=== PATIENT | male | born 1950 | race Two or more races ===

== ENCOUNTER 2020-06-23 17:05 | Inpatient (IN) | payer MEDICARE, SELFPAY ==
[2020-06-23 17:05] VITALS: BP 120/88; PULSE 94; RESP 18; TEMP 37.3; O2SAT 99; BMI 29.7
--- NOTE | 2020-06-23 17:44 | CT_ITS ---
EXAMINATION : Head CT w/out contrast HISTORY : altered mental status COMPARISON : None. TECHNIQUE : Multiple contiguous axial images were obtained from the skull base to the vertex without intravenous contrast. A radiation dose optimization technique was used for this scan. FINDINGS : There is no evidence for acute intracranial hemorrhage, mass effect, or midline shift. There is no extra-axial fluid collection. There are periventricular white matter changes consistent with chronic microvascular ischemic disease. There is sulcal widening and ventricular enlargement consistent with cerebral atrophy. There is normal stauffer-white differentiation, without CT evidence of acute ischemia or infarct. The skull base and calvarium are unremarkable. The orbits are unremarkable. Mild mucosal thickening of several ethmoid air cells. The mastoid air cells are well-aerated. The soft tissues are unremarkable. CT/Brain/Head without Contrast IMPRESSION: No acute intracranial abnormality. Chronic involutional and ischemic changes of the brain. Ethmoid sinusitis. Electronically Signed: Lokesh Mcgarry MD at 18:58 EDT Tel , Service support ,
--- NOTE | 2020-06-23 17:44 | RAD_ITS ---
STUDY: X-RAY - LUMBAR SPINE REASON FOR EXAM: Male, 70 years old. pain TECHNIQUE: 3 view(s) of the lumbar spine were obtained. COMPARISON: None FINDINGS: There is straightening of the normal lumbar lordosis. There is no substantial scoliosis. There is a normal alignment of the vertebrae. Normal vertebral body height without fracture deformity. Generalized mild to moderate disc narrowing with extensive spondylitic endplate changes. There is no demonstrated fracture. The soft tissue structures are unremarkable. RAD/Lumbar Spine 2 or 3 Views IMPRESSION: Straightening of the lumbar spine with otherwise normal alignment. Negative for fracture, osteolytic or blastic bone lesion. Mild to moderate disc narrowing with extensive spondylitic endplate changes. Electronically Signed: Tari Webb MD at 19:35 EDT , Service support ,
--- NOTE | 2020-06-23 17:46 | EKG12_ITS ---
Test Reason : FALL Blood Pressure : / mmHG Vent. Rate : 090 BPM Atrial Rate : 090 BPM P-R Int : 140 ms QRS Dur : 094 ms QT Int : 406 ms P-R-T Axes : 061 064 057 degrees QTc Int : 496 ms Normal sinus rhythm Prolonged QT Abnormal ECG Confirmed by CINDY QUINN, KVNG ([id number]), associate editor LUCITA RAINEY ([id number]) on 06/28/2020 12:22:37 PM Referred By: ANGEL Confirmed By:KVNG WHITE MD
--- NOTE | 2020-06-23 17:49 | ED.VIS.FALL ---
HPI HPI - Fall History of Present Illness Chief Complaint: Fall Informant: patient and family Occured/Mechanism Occurred: Today Mechanism/Context: Yes other Fall from Height (ft): 2-3, out of bed Pain/Injury Location: Denies injury from fall Pain Location: back Quality of Pain: Aching Current Severity: Mild Maximum Severity: Severe Worsened by: Movement Narrative Narrative: Patient arrives by EMS after a fall, apparently out of bed. He was found on the floor next to his bed by his son who recently moved in to live with him, he usually lives in [place], because their mother last year of liver failure and alcohol problems, and they recently discovered that their father also is an alcoholic and since he retired has basically just been drinking and getting weak. Recently has been having neck and back problems with severe pains, limiting his ADLs. They have had visits to doctors for this, some blood work was recently obtained, he was told that there was a white blood count that was elevated. The son went to the store today and came back and found the patient on the floor and had apparently fallen. The patient is confused. The son helped to wean him off of alcohol this past week, he was confused afterwards but it seemed to be improving, he thought he had them through the withdrawal period, which he did with him at home. Then he went to [place] for the weekend and came back and saw that he had been drinking beer. He agrees he is confused now. His last drink then was either 3 or 4 days ago. The son confirms that in the past several he has had no alcoholic drink. He has not yet been to the hospital for evaluation for any of this until now after this fall. The patient states he does not think he injured himself, but his low back hurts when he moves only, which was the case before the fall. The son did not bring a medication list, but states that he has basically not been taking any of his medications for weeks or more. [facility] Medical History (Updated 06/23/20 @ 19:[address] Naldo Rodriguez MD) Alcoholism Hypertension Home Medications aspirin 81 mg PO DAILY@0800 01/13/14 [History Last Taken Unknown] amlodipine 10 mg PO DAILY #60 tablet 01/19/14 [Rx Last Taken Unknown] hydrochlorothiazide 12.5 mg PO DAILY 06/23/20 [History Last Taken Unknown] Allergy/AdvReac Type Severity Reaction Status Date / Time No Known Allergies Allergy Verified 06/23/20 17:17 Social History (Updated 06/23/20 @ 17:[address] Naldo Rodriguez MD) household members: children Smoking Status: Former smoker alcohol intake: current alcohol intake frequency: 3 or more drinks per day Alcohol type: beer substance use type: does not use ROS ROS ED Constitutional Constitutional ED: Reports malaise; Denies chills or fever(s) Eyes Eyes: Denies change in vision or diplopia ENT ENT ED: Denies rhinorrhea or sore throat Cardiovascular Cardiovascular: Denies chest pain or palpitations Respiratory/Chest Respiratory/Chest: Denies cough or dyspnea Gastrointestinal Gastrointestinal: Denies abdominal pain, diarrhea, melena, nausea or vomiting Genitourinary Genitourinary ED: Denies dysuria or hematuria Musculoskeletal Musculoskeletal: Reports back pain and neck pain; Denies myalgias Integumentary Denies abscess or rash Neurologic Neurologic: Reports as per HPI and confusion; Denies headache(s), paresthesias or weakness Psychiatric Psychiatric: Denies anxiety or suicidal thoughts EXAM Physical Exam Const Vital Signs: 06/23/20 17:05 06/23/20 17:33 06/23/20 20:01 Temperature 99.1 F Temperature Source Oral Pulse Rate 94 89 Respiratory Rate 18 13 Respiratory Effort Normal Non-Labored Respiratory Depth Normal Respiratory Pattern Normal Blood Pressure 120/88 H 118/76 Blood Pressure Mean 98 90 Pulse Ox 99 96 Oxygen Delivery Method Room Air Room Air Room Air Positive well nourished and well developed General Appearance ED: well developed and NAD HEENT Reports moist mucous membranes normocephalic and atraumatic Eyes PERRL and EOMs intact bilaterally Neck full ROM and supple Resp normal respiratory effort and clear to auscultation bilaterally Cardio regular rate, regular rhythm and no murmurs Rate: Negative for tachycardic GI non-tender and non-distended Auscultation: normoactive bowel sounds Palpation: soft Back/Spine no CVA tenderness General Back: tenderness and other FROM but with pain in lumbar spine. Tender only when in pain. No step-off or signs of trauma. Lumbar Spine / Lower Back: lumbar spinal tenderness Extremity normal to inspection, full ROM and normal capillary refill General Extremety ED: Negative for edema, pulses abnormal or tenderness General Extremity: Negative for edema or pulses abnormal Neuro CN's II-XII intact bilaterally and no sensory deficits noted Sensorium / Orientation: awake, alert, oriented to person and confused; Negative for oriented to place or oriented to time Motor Exam: strength 5/5 throughout Skin no rashes or lesions noted and no wounds MDM MDM MDM Narrative Medical decision making narrative: Patient indeed has a significant leukocytosis. This appears possibly related to urinary tract infection. Blood and urine cultures were sent, started on IV Rocephin. He could be confused due to delirium from infection and/or alcohol withdrawal. For this reason I discussed with hospitalist about ICU admission tonight, since his blood pressure and vital signs are normal and he is clinically and hemodynamically stable, he prefers to have him started in the PCU which I think is fine. He is given IV fluids, analgesics, prophylactic Zofran, antibiotics as above, potassium. Lab Data Attestation: I reviewed the patient's lab results. Labs: Laboratory Results - last 24 hr 06/23/20 06/23/20 06/23/20 18:00 18:00 18:00 WBC 18.8 H RBC 3.82 L Hgb 12.7 L Hct 37.3 L MCV 97.6 H MCH 33.2 H MCHC 34.0 RDW Std Deviation 48.0 H RDW Coeff of Lou 13.3 Plt Count 315 MPV 11.2 Immature Gran % (Auto) 1.200 H Neut % (Auto) 92.4 H Lymph % (Auto) 2.9 L [place] % (Auto) 3.3 Eos % (Auto) 0.0 Baso % (Auto) 0.2 Absolute Neuts (auto) 17.4 H Absolute Lymphs (auto) 0.55 L Nucleated RBC % 0 Differential Comment SCANNED PT 15.8 H INR 1.3 Sodium 131 L Potassium 2.8 L Chloride 94 L Carbon Dioxide 30.0 Anion Gap 7 BUN 21 H Creatinine 1.25 Estim Creat Clear Calc 63.02 Est GFR (MDRD) Af Amer 73 Est GFR (MDRD) Non-Af 61 BUN/Creatinine Ratio 16.8 Glucose 107 H Lactic Acid Calcium 8.5 Total Bilirubin 2.60 H AST 64 H ALT 32 Alkaline Phosphatase 99 Total Creatine Kinase Troponin I < 0.015 Total Protein 6.4 Albumin 2.3 L Globulin 4.1 Albumin/Globulin Ratio 0.6 L Urine Color Urine Clarity Urine pH Ur Specific [place] Urine Protein Urine Glucose (UA) Urine Ketones Urine Occult Blood Urine Nitrite Urine Bilirubin Urine Urobilinogen Ur Leukocyte Esterase Urine RBC Urine WBC Ur Squamous Epith Cells Urine Bacteria Urine Mucus Urine Opiates Screen Urine Methadone Screen Ur Barbiturates Screen Ur Phencyclidine Scrn Ur Amphetamines Screen U Methamphetamin-MDMA U Benzodiazepines Scrn Urine Cocaine Screen U Cannabinoids Screen Ur Drug Screen Comment Ethyl Alcohol 06/23/20 06/23/20 06/23/20 18:00 18:00 18:00 WBC RBC Hgb Hct MCV MCH MCHC RDW Std Deviation RDW Coeff of Lou Plt Count MPV Immature Gran % (Auto) Neut % (Auto) Lymph % (Auto) [place] % (Auto) Eos % (Auto) Baso % (Auto) Absolute Neuts (auto) Absolute Lymphs (auto) Nucleated RBC % Differential Comment PT INR Sodium Potassium Chloride Carbon Dioxide Anion Gap BUN Creatinine Estim Creat Clear Calc Est GFR (MDRD) Af Amer Est GFR (MDRD) Non-Af BUN/Creatinine Ratio Glucose Lactic Acid 1.5 Calcium Total Bilirubin AST ALT Alkaline Phosphatase Total Creatine Kinase 803 H Troponin I Total Protein Albumin Globulin Albumin/Globulin Ratio Urine Color Urine Clarity Urine pH Ur Specific [place] Urine Protein Urine Glucose (UA) Urine Ketones Urine Occult Blood Urine Nitrite Urine Bilirubin Urine Urobilinogen Ur Leukocyte Esterase Urine RBC Urine WBC Ur Squamous Epith Cells Urine Bacteria Urine Mucus Urine Opiates Screen Urine Methadone Screen Ur Barbiturates Screen Ur Phencyclidine Scrn Ur Amphetamines Screen U Methamphetamin-MDMA U Benzodiazepines Scrn Urine Cocaine Screen U Cannabinoids Screen Ur Drug Screen Comment Ethyl Alcohol < 3.0 06/23/20 06/23/20 19:10 19:10 WBC RBC Hgb Hct MCV MCH MCHC RDW Std Deviation RDW Coeff of Lou Plt Count MPV Immature Gran % (Auto) Neut % (Auto) Lymph % (Auto) [place] % (Auto) Eos % (Auto) Baso % (Auto) Absolute Neuts (auto) Absolute Lymphs (auto) Nucleated RBC % Differential Comment PT INR Sodium Potassium Chloride Carbon Dioxide Anion Gap BUN Creatinine Estim Creat Clear Calc Est GFR (MDRD) Af Amer Est GFR (MDRD) Non-Af BUN/Creatinine Ratio Glucose Lactic Acid Calcium Total Bilirubin AST ALT Alkaline Phosphatase Total Creatine Kinase Troponin I Total Protein Albumin Globulin Albumin/Globulin Ratio Urine Color Yellow Urine Clarity Cloudy Urine pH 6.0 Ur Specific [place] 1.020 Urine Protein 30 H Urine Glucose (UA) Normal Urine Ketones 5 H Urine Occult Blood 150 H Urine Nitrite Negative Urine Bilirubin 1 H Urine Urobilinogen 4 H Ur Leukocyte Esterase 500 H Urine RBC 0 SEEN Urine WBC 50-100 SEEN Ur Squamous Epith Cells 0-5 SEEN Urine Bacteria 2+ Urine Mucus 0 SEEN Urine Opiates Screen POSITIVE H Urine Methadone Screen NEGATIVE Ur Barbiturates Screen NEGATIVE Ur Phencyclidine Scrn NEGATIVE Ur Amphetamines Screen NEGATIVE U Methamphetamin-MDMA NEGATIVE U Benzodiazepines Scrn NEGATIVE Urine Cocaine Screen NEGATIVE U Cannabinoids Screen POSITIVE H Ur Drug Screen Comment Ethyl Alcohol Radiography Diagnostic Testing: Radiology Impression Brain CT 06/23/20 17:44 IMPRESSION: No acute intracranial abnormality. Chronic involutional and ischemic changes of the brain. Ethmoid sinusitis. Electronically Signed: Lokesh Mcgarry MD at 18:58 EDT Tel , Service support , Lumbar Spine X-Ray 06/23/20 17:44 IMPRESSION: Straightening of the lumbar spine with otherwise normal alignment. Negative for fracture, osteolytic or blastic bone lesion. Mild to moderate disc narrowing with extensive spondylitic endplate changes. Electronically Signed: Tari Webb MD at 19:35 EDT , Service support , Chest X-Ray 06/23/20 18:50 IMPRESSION: No acute cardiopulmonary findings or changes. Electronically Signed: Tari Webb MD at 19:32 EDT , Service support , Discharge Plan Dx/Rx/DC Orders Clinical Impression: Delirium due to multiple etiologies, Urinary tract infection, Alcohol withdrawal, Hypokalemia Disposition Disposition: Acute Care [facility]
[2020-06-23] MEDS: Ondansetron 4 MG/2 ML Vial IV (18:27)
[2020-06-23] MEDS: 0.9% Normal Saline 1,000 ML 150 ML IV (18:27)
[2020-06-23] MEDS: Morphine 2 MG/ML Syringe IV (18:29)
[2020-06-23 18:31] LABS: Absolute Lymphocyte Count 0.55 X10^3/uL (0.83-4.51); Absolute Neutrophil Count 17.4 X10^3/uL (2.0-7.7); Basophil# 0.03 X10^3/uL; Basophil% 0.2 % (0-1); Hematocrit 37.3 % (40-54); Hemoglobin 12.7 g/dL (13.0-16.5); Lymphocyte # 0.55 X10^3/ul (0.83-4.51); Lymphocyte % 2.9 % (19-41); Mean Corpuscular Hgb 33.2 pg (27.0-32.0); Mean Corpuscular Volume 97.6 fL (80-94); Mean Platelet Vol. 11.2 fl (6.2-12.0); Monocyte# 0.63 X10^3/uL; Monocyte% 3.3 % (0-10); NRBC Flagged by Analyzer 0 % (0-5); Neutrophil # 17.38 X10^3/uL (2.7-7.7); Neutrophil % 92.4 % (47-70); POSITIVE DIFFERENTIAL YES; Platelet Count 315 K/mm3 (150-450); RBC Distribution Width CV 13.3 % (11.6-14.6); Red Blood Count 3.82 M/mm3 (4.6-6.2); White Blood Count 18.8 K/mm3 (4.4-11.0)
[2020-06-23 18:33] LABS: Differential Indicated SCAN CRITERIA MET
[2020-06-23 18:36] LABS: International Normalized Ratio 1.3; Prothrombin Time (Protime)PT. 15.8 SECONDS (11.7-14.9)
[2020-06-23 18:42] LABS: CPK Total, Creatine Kinase 803 U/L (39-308)
[2020-06-23 18:44] LABS: Alcohol, Blood (Medical)-Serum < 3.0 mg/dL
--- NOTE | 2020-06-23 18:50 | RAD_ITS ---
STUDY: X-RAY CHEST REASON FOR EXAM: Male, 70 years old. weakness TECHNIQUE: 1 view COMPARISON: Prior chest radiograph of 01/17/2014 FINDINGS: The lungs are clear and expanded. There is no demonstrated pleural abnormality. Normal size heart. Normal mediastinum and patience. Normal visualized pulmonary arteries. There is atherosclerotic calcification of the aortic arch with tortuosity. There are diffuse degenerative changes of the visualized thoracic spine. There is degenerative osteoarthritis of the bilateral shoulders. There is no demonstrated abnormality of the visualized soft tissue structures of the upper abdomen. RAD/Chest 1 View (Portable) IMPRESSION: No acute cardiopulmonary findings or changes. Electronically Signed: Tari Webb MD at 19:32 EDT , Service support ,
[2020-06-23 18:51] LABS: ALB/GLOB Ratio 0.6 RATIO (0.9-2.4); AST(SGOT) 64 U/L (15-37); Alanine Aminotransfer ALT/SGPT 32 U/L (16-61); Albumin, Serum 2.3 g/dL (3.2-5.0); Alkaline Phosphatase 99 U/L (45-117); Anion Gap 7 (5-15); BUN 21 mg/dL (7-18); BUN/Creat Ratio 16.8 RATIO (10-20); Calcium,Total 8.5 mg/dL (8.5-10.1); Chloride 94 mmol/L (98-107); Creatinine, Serum 1.25 mg/dL (0.70-1.30); EST Glomerular Filtration Rate 61 mL/min (>60); Est Glom Filt Rate - Afr Amer 73 mL/min (>60); Estimated Creatinine Clearance 63.02 ml/min; Globulin 4.1 g/dL (2.2-4.2); Glucose 107 mg/dL (74-106); Potassium 2.8 mmol/L (3.5-5.1); Protein, Total 6.4 g/dL (6.4-8.2); Sodium Level 131 mmol/L (136-145)
[2020-06-23 18:52] LABS: Lactic Acid 1.5 mmol/L (0.4-1.9)
[2020-06-23 19:18] LABS: Mucous, Urine 0 SEEN /hpf (<or=2+); Red Blood Cells-Urine 0 SEEN /hpf (0-5)
[2020-06-23 19:19] LABS: Differential Comment SCANNED
[2020-06-23 19:25] LABS: Color, Urine Yellow (Yellow); Glucose, Dipstick Normal (Normal); Ketone-Dipstick 5 mg/dl (Negative); Leukocyte Esterase-Dipstick 500 /ul (Negative); Nitrite-Dipstick Negative (Negative); Occult Blood-Urine 150 /ul (Negative); Protein-Dipstick 30 mg/dl (Negative); Urine Bilirubin Dipstick 1 mg/dL (Negative); Urine Clarity Cloudy (Clear); Urine Urobilinogen 4 mg/dl (Normal)
[2020-06-23 19:33] LABS: Bacteria 2+ /hpf (None Seen); Squamous Epithelial Cells - UA 0-5 SEEN /hpf (0-5); White Blood Cells 50-100 SEEN /hpf (0-5)
[2020-06-23 19:47] LABS: Amphetamine Urine VISTA NEGATIVE (<1000 ng/mL); Barbiturate Urine VISTA NEGATIVE (< 200 ng/mL); Benzodiazepine Urine VISTA NEGATIVE (< 200 ng/mL); Cocaine Urine VISTA NEGATIVE (< 300 ng/mL); Ecstacy Urine VISTA NEGATIVE (< 500 ng/mL); Methadone Urine VISTA NEGATIVE (< 300 ng/mL); PCP Urine VISTA NEGATIVE (< 25 ng/mL); THC Urine VISTA POSITIVE (< 50 ng/mL); Vista UDS pH Range 5
[2020-06-23] MEDS: Ceftriaxone 1 GM/50 ML BAG IV (19:52)
[2020-06-23] MEDS: Potassium Chloride 10mEq/100mL 10 MEQ/100 ML IV.SOLN. 100 MEQ IV BOLUS ×2 (19:57→23:14)
[2020-06-23 20:01] VITALS: BP 118/76; PULSE 89; RESP 13; O2SAT 96
--- NOTE | 2020-06-23 21:35 | PCM.HP.STD ---
Documented by User: CHELSI Forrest 06/23/20 21:52 HPI - General General Date of Admission: 06/23/20 HPI Narrative OLLIE MEIER, is a 70 M who presents today with altered mental status and fall. Patient son reports that patient has been a heavy drinker & has been trying to help him withdrawal from alcohol but son was recently gone for the weekend at which time his father started drinking again. Patient son reports last drink was 3 to 4 days ago. Patient son reports that he has been confused for the past 3 to 4 days and he attributed this to alcohol withdrawal but states that today patient was worse instead of better and he was concerned that something else was wrong. Upon evaluation in ER patient was found to have a significant urinary tract infection with an elevated white blood cell count of 18.8. Imaging completed in ER was negative for acute findings. [facility] Medical History (Updated 06/23/20 @ 22:[address] oGpi Vieira MD) Alcoholism ARF (acute respiratory failure) Hypertension Stridor Home Medications aspirin 81 mg PO DAILY@0800 01/13/14 [History Last Taken Unknown] amlodipine 10 mg PO DAILY #60 tablet 01/19/14 [Rx Last Taken Unknown] hydrochlorothiazide 12.5 mg PO DAILY 06/23/20 [History Last Taken Unknown] Allergy/AdvReac Type Severity Reaction Status Date / Time No Known Allergies Allergy Verified 06/23/20 17:17 Social History household members: children Smoking Status: Former smoker alcohol intake: current alcohol intake frequency: 3 or more drinks per day Alcohol type: beer substance use type: does not use ROS Review of Systems ROS Unobtainable: due to mental status Vital Signs Vital Signs Vital Signs: 06/23/20 17:05 06/23/20 17:33 06/23/20 20:01 Temperature 99.1 F Temperature Source Oral Pulse Rate 94 89 Respiratory Rate 18 13 Respiratory Effort Normal Non-Labored Respiratory Depth Normal Respiratory Pattern Normal Blood Pressure 120/88 H 118/76 Blood Pressure Mean 98 90 Pulse Ox 99 96 Oxygen Delivery Method Room Air Room Air Room Air Physical Exam Const Orientation / Consciousness: confused and lethargic Exam Limitations: altered mental status HEENT normocephalic and head/scalp atraumatic Neck supple and no JVD General: trachea midline Lymph Lymphatic: no lymphadenopathy noted Resp normal respiratory effort, normal air movement and clear to auscultation bilaterally Cardio regular rate, regular rhythm, S1 normal heart sound and S2 normal heart sound GI normal to inspection, nondistended, normoactive bowel sounds, soft to palpation and non-tender Extremity normal capillary refill and no clubbing, cyanosis or edema General Extremity: no tenderness to palpation of joints or extremities Skin General Skin Exam: no breakdown and turgor normal Lesions: no lesions Rashes: no rashes Neuro CN's II-XII intact bilaterally Psych cooperative Lab / Micro Data Result Diagrams: 06/23/20 18:00 06/23/20 18:00 Labs: Laboratory Results - last 24 hr 06/23/20 06/23/20 06/23/20 18:00 18:00 18:00 WBC 18.8 H RBC 3.82 L Hgb 12.7 L Hct 37.3 L MCV 97.6 H MCH 33.2 H MCHC 34.0 RDW Std Deviation 48.0 H RDW Coeff of Lou 13.3 Plt Count 315 MPV 11.2 Immature Gran % (Auto) 1.200 H Neut % (Auto) 92.4 H Lymph % (Auto) 2.9 L [place] % (Auto) 3.3 Eos % (Auto) 0.0 Baso % (Auto) 0.2 Absolute Neuts (auto) 17.4 H Absolute Lymphs (auto) 0.55 L Nucleated RBC % 0 Differential Comment SCANNED PT 15.8 H INR 1.3 Sodium 131 L Potassium 2.8 L Chloride 94 L Carbon Dioxide 30.0 Anion Gap 7 BUN 21 H Creatinine 1.25 Estim Creat Clear Calc 63.02 Est GFR (MDRD) Af Amer 73 Est GFR (MDRD) Non-Af 61 BUN/Creatinine Ratio 16.8 Glucose 107 H Lactic Acid Calcium 8.5 Total Bilirubin 2.60 H AST 64 H ALT 32 Alkaline Phosphatase 99 Total Creatine Kinase Troponin I < 0.015 Total Protein 6.4 Albumin 2.3 L Globulin 4.1 Albumin/Globulin Ratio 0.6 L Urine Color Urine Clarity Urine pH Ur Specific [place] Urine Protein Urine Glucose (UA) Urine Ketones Urine Occult Blood Urine Nitrite Urine Bilirubin Urine Urobilinogen Ur Leukocyte Esterase Urine RBC Urine WBC Ur Squamous Epith Cells Urine Bacteria Urine Mucus Urine Opiates Screen Urine Methadone Screen Ur Barbiturates Screen Ur Phencyclidine Scrn Ur Amphetamines Screen U Methamphetamin-MDMA U Benzodiazepines Scrn Urine Cocaine Screen U Cannabinoids Screen Ur Drug Screen Comment Ethyl Alcohol 06/23/20 06/23/20 06/23/20 18:00 18:00 18:00 WBC RBC Hgb Hct MCV MCH MCHC RDW Std Deviation RDW Coeff of Lou Plt Count MPV Immature Gran % (Auto) Neut % (Auto) Lymph % (Auto) [place] % (Auto) Eos % (Auto) Baso % (Auto) Absolute Neuts (auto) Absolute Lymphs (auto) Nucleated RBC % Differential Comment PT INR Sodium Potassium Chloride Carbon Dioxide Anion Gap BUN Creatinine Estim Creat Clear Calc Est GFR (MDRD) Af Amer Est GFR (MDRD) Non-Af BUN/Creatinine Ratio Glucose Lactic Acid 1.5 Calcium Total Bilirubin AST ALT Alkaline Phosphatase Total Creatine Kinase 803 H Troponin I Total Protein Albumin Globulin Albumin/Globulin Ratio Urine Color Urine Clarity Urine pH Ur Specific [place] Urine Protein Urine Glucose (UA) Urine Ketones Urine Occult Blood Urine Nitrite Urine Bilirubin Urine Urobilinogen Ur Leukocyte Esterase Urine RBC Urine WBC Ur Squamous Epith Cells Urine Bacteria Urine Mucus Urine Opiates Screen Urine Methadone Screen Ur Barbiturates Screen Ur Phencyclidine Scrn Ur Amphetamines Screen U Methamphetamin-MDMA U Benzodiazepines Scrn Urine Cocaine Screen U Cannabinoids Screen Ur Drug Screen Comment Ethyl Alcohol < 3.0 06/23/20 06/23/20 19:10 19:10 WBC RBC Hgb Hct MCV MCH MCHC RDW Std Deviation RDW Coeff of Lou Plt Count MPV Immature Gran % (Auto) Neut % (Auto) Lymph % (Auto) [place] % (Auto) Eos % (Auto) Baso % (Auto) Absolute Neuts (auto) Absolute Lymphs (auto) Nucleated RBC % Differential Comment PT INR Sodium Potassium Chloride Carbon Dioxide Anion Gap BUN Creatinine Estim Creat Clear Calc Est GFR (MDRD) Af Amer Est GFR (MDRD) Non-Af BUN/Creatinine Ratio Glucose Lactic Acid Calcium Total Bilirubin AST ALT Alkaline Phosphatase Total Creatine Kinase Troponin I Total Protein Albumin Globulin Albumin/Globulin Ratio Urine Color Yellow Urine Clarity Cloudy Urine pH 6.0 Ur Specific [place] 1.020 Urine Protein 30 H Urine Glucose (UA) Normal Urine Ketones 5 H Urine Occult Blood 150 H Urine Nitrite Negative Urine Bilirubin 1 H Urine Urobilinogen 4 H Ur Leukocyte Esterase 500 H Urine RBC 0 SEEN Urine WBC 50-100 SEEN Ur Squamous Epith Cells 0-5 SEEN Urine Bacteria 2+ Urine Mucus 0 SEEN Urine Opiates Screen POSITIVE H Urine Methadone Screen NEGATIVE Ur Barbiturates Screen NEGATIVE Ur Phencyclidine Scrn NEGATIVE Ur Amphetamines Screen NEGATIVE U Methamphetamin-MDMA NEGATIVE U Benzodiazepines Scrn NEGATIVE Urine Cocaine Screen NEGATIVE U Cannabinoids Screen POSITIVE H Ur Drug Screen Comment Ethyl Alcohol Radiology Impression Brain CT 06/23/20 17:44 IMPRESSION: No acute intracranial abnormality. Chronic involutional and ischemic changes of the brain. Ethmoid sinusitis. Electronically Signed: Lokesh Mcgarry MD at 18:58 EDT Tel , Service support , Lumbar Spine X-Ray 06/23/20 17:44 IMPRESSION: Straightening of the lumbar spine with otherwise normal alignment. Negative for fracture, osteolytic or blastic bone lesion. Mild to moderate disc narrowing with extensive spondylitic endplate changes. Electronically Signed: Tari Webb MD at 19:35 EDT , Service support , Chest X-Ray 06/23/20 18:50 IMPRESSION: No acute cardiopulmonary findings or changes. Electronically Signed: Tari Webb MD at 19:32 EDT , Service support , Assessment & Plan Assessment/Plan (1) Urinary tract infection: QUALIFIERS: Hematuria presence: with hematuria Urinary tract infection type: site unspecified Qualified Code(s): N39.0 - Urinary tract infection, site not specified; R31.9 - Hematuria, unspecified (2) Alcohol withdrawal: QUALIFIERS: Complication of substance-induced condition: with delirium Qualified Code(s): F10.231 - Alcohol dependence with withdrawal delirium (3) Delirium due to multiple etiologies: (4) Hypokalemia: (5) Anxiety: (6) Hypertension: QUALIFIERS: Hypertension type: essential hypertension Qualified Code(s): I10 - Essential (primary) hypertension PLAN: 1. Urinary tract infection -Patient received Rocephin in ER, Levaquin ordered every 24 hours -Normal saline with 20 mEq of KCl at 100ml/hr -Urine culture pending -CBC daily to trend white blood cell count -Vitals per protocol, currently stable -Strict I and O 2. Alcohol withdrawal -CIWA protocol ordered with [facility] first 24-hour meds -Folic acid and thiamine ordered -Case management consult ordered for assistance with substance abuse 3. Delirium due to multiple etiologies -Unsure whether altered mental status is from UTI or alcohol withdrawal, will treat for both 4. Hypokalemia -Normal saline with 20 M EQ of KCl at 100 mill per hour -Potassium chloride IV replacement ordered, 40 mEq -Stat magnesium level ordered -CMP ordered for a.m. to trend potassium -Continuous cardiac monitoring 5. Anxiety -Lorazepam ordered as needed as part of CIWA protocol 6. Hypertension -Son unclear of cardiac medications patient is supposed to be taking will clarify with pharmacy in a.m. DVT prophylaxis-Lovenox subcu This patient was seen by CHELSI Forrest under the supervision of Dr. Vieira.[] Documented by User: Dr. Gopi Vieira MD 06/23/20 22:05 HPI - General General Date of Admission: 06/23/20 [facility] Medical History (Updated 06/23/20 @ 22:[address] Gopi Vieira MD) Alcoholism ARF (acute respiratory failure) Hypertension Stridor Home Medications aspirin 81 mg PO DAILY@0800 01/13/14 [History Last Taken Unknown] amlodipine 10 mg PO DAILY #60 tablet 01/19/14 [Rx Last Taken Unknown] hydrochlorothiazide 12.5 mg PO DAILY 06/23/20 [History Last Taken Unknown] Allergy/AdvReac Type Severity Reaction Status Date / Time No Known Allergies Allergy Verified 06/23/20 17:17 Social History household members: children Smoking Status: Former smoker alcohol intake: current alcohol intake frequency: 3 or more drinks per day Alcohol type: beer substance use type: does not use Lab / Micro Data Result Diagrams: 06/23/20 18:00 06/23/20 18:00 Assessment & Plan Assessment/Plan (1) Urinary tract infection: QUALIFIERS: Hematuria presence: with hematuria Urinary tract infection type: site unspecified Qualified Code(s): N39.0 - Urinary tract infection, site not specified; R31.9 - Hematuria, unspecified (2) Alcohol withdrawal: QUALIFIERS: Complication of substance-induced condition: with delirium Qualified Code(s): F10.231 - Alcohol dependence with withdrawal delirium (3) Delirium due to multiple etiologies: (4) Hypokalemia: (5) Hypertension: QUALIFIERS: Hypertension type: essential hypertension Qualified Code(s): I10 - Essential (primary) hypertension (6) Encephalopathy: Addendum Addendum: Patient was seen and examined. I agree with assessment and plan by Aurea Serna, [employer]YOR OPERATOR-C nurse practitioner and with the following modification. Patient was found on the floor by son who has returned from [place] to help patient quit alcohol withdrawal since patient's mother also from alcoholism. Patient was found on the floor. Reportedly in some absence patient resume drinking. Patient complains of neck pain and lower back pain. Imaging at the emergency department was unremarkable. Alert and confused Nontraumatic; normocephalic Lung clear to auscultate Heart sounds S1-S2. No murmur, gallop or rubs. Abdomen bowel sounds present soft, nontender nondistended Extremity without edema cyanosis or clubbing. Acute infectious and metabolic encephalopathy. Secondary to alcoholism. Put on CIWA protocol with high dose of thiamine and other adjusted medication. Given ceftriaxone at emergency department. We will continue patient on ceftriaxone. Rhabdomyolysis Patient with elevated CPK. IV hydration ordered. Trend CPK. Hypertension Stable. Trend blood pressures. Multi Select Codes Visit Charges Visit Charges: 91472 Init Hosp L3
[2020-06-23 21:44] VITALS: BP 136/74; PULSE 78; RESP 16; TEMP 36.6; O2SAT 96
[2020-06-23 21:51] LABS: Magnesium 1.6 mg/dL (1.6-2.6)
[2020-06-23 22:22] VITALS: BMI 27.6
[2020-06-23 22:25] VITALS: O2SAT 94
--- NOTE | 2020-06-23 22:32 | NURSING ---
Addendum entered by Haylie Pierre 06/23/20 23:54: Pt's son Saul stated pt's previous medications were all prescribed by Dr. Jose Pickett. Original Note: Pt's son Saul called for update and requesting record of patients medications. Saul stated that pt has not seen MD for greater than one year and has not been taking his medications. Med rec completed to reflect that pt not taking any home medications at this time.
[2020-06-23 22:34] VITALS: BP 138/87; PULSE 95; RESP 20; TEMP 37; O2SAT 95
[2020-06-23 23:06] VITALS: PULSE 96
[2020-06-24] VITALS (12 sets, daily range): BP systolic 104–145; BP diastolic 62–100; PULSE 76–98; RESP 14–18; TEMP 36.1–39.4; O2SAT 94–97
[2020-06-24] MEDS: Potassium Chloride 10mEq/100mL 10 MEQ/100 ML IV.SOLN. 100 MEQ IV BOLUS ×3 (00:20→02:25)
[2020-06-24] MEDS: Acetaminophen 325 MG Tablet 650 MG PO ×2 (02:50→17:50)
[2020-06-24 07:12] LABS: Absolute Lymphocyte Count 0.67 X10^3/uL (0.83-4.51); Absolute Neutrophil Count 15.9 X10^3/uL (2.0-7.7); Basophil# 0.03 X10^3/uL; Basophil% 0.2 % (0-1); Eosinophil# 0.01 X10^3/uL; Eosinophils% 0.1 % (0-5); Hematocrit 36.4 % (40-54); Hemoglobin 12.6 g/dL (13.0-16.5); Lymphocyte # 0.67 X10^3/ul (0.83-4.51); Lymphocyte % 3.8 % (19-41); Mean Corp Hgb Conc 34.6 g/dL (32-36); Mean Corpuscular Hgb 33.2 pg (27.0-32.0); Monocyte# 0.58 X10^3/uL; Monocyte% 3.3 % (0-10); NRBC Flagged by Analyzer 0 % (0-5); Neutrophil # 15.89 X10^3/uL (2.7-7.7); Neutrophil % 90.9 % (47-70); Platelet Count 278 K/mm3 (150-450); RBC Distribution Width CV 13.5 % (11.6-14.6); RBC Distribution Width SD 48.1 fl (35.1-43.9); Red Blood Count 3.79 M/mm3 (4.6-6.2); White Blood Count 17.5 K/mm3 (4.4-11.0)
[2020-06-24 07:49] LABS: ALB/GLOB Ratio 0.6 RATIO (0.9-2.4); AST(SGOT) 61 U/L (15-37); Alanine Aminotransfer ALT/SGPT 33 U/L (16-61); Albumin, Serum 2.2 g/dL (3.2-5.0); Alkaline Phosphatase 94 U/L (45-117); Anion Gap 15 (5-15); BUN 21 mg/dL (7-18); BUN/Creat Ratio 22.1 RATIO (10-20); Calcium,Total 8.2 mg/dL (8.5-10.1); Chloride 98 mmol/L (98-107); Creatinine, Serum 0.95 mg/dL (0.70-1.30); EST Glomerular Filtration Rate 83 mL/min (>60); Est Glom Filt Rate - Afr Amer 100 mL/min (>60); Estimated Creatinine Clearance 82.92 ml/min; Glucose 88 mg/dL (74-106); Potassium 3.1 mmol/L (3.5-5.1); Protein, Total 6.2 g/dL (6.4-8.2); Sodium Level 133 mmol/L (136-145)
[2020-06-24] MEDS: Lidocaine 5% Patch 1 PATCH TOPICAL (10:13)
[2020-06-24] MEDS: Folic Acid 1 MG Tablet PO ×2 (10:14→17:43)
[2020-06-24] MEDS: Enoxaparin 40 MG/0.4 ML Syringe SC (10:14)
[2020-06-24] MEDS: Ceftriaxone 1 GM/50 ML BAG IV (10:18)
[2020-06-24] MEDS: Potassium Chloride Oral Tablet 20 MEQ 40 MEQ PO (10:18)
--- NOTE | 2020-06-24 11:00 | CASEMGMT ---
ORTEGA ACHARYA Assessment: Face to Face with pt for initial transition planning/care coordination assessment. RN PATRIZIA introduced self and role at [facility], pt voices understanding and consents to assessment. Pt is A/O x4 and answers all questions appropriately at this time. Pt sitting up in bed in no distress, but slow to answer questions. Care providers, pharmacy, and demographics verified/updated. Admitting Dx: UTI, ETOH w/d PCP: [facility] Specialists: Pt denies having any specialists Preferred [facility]acy: [facility] Insurance: [facility] Prescription Benefit: yes LW/HPOA: Pt denies having a LW/DPOA. LNOK: Saul Lucas, son Living Arrangements: Pt lives with son in a single story house with 2 steps to enter. Pt denies concerns at home. Transportation: Pt states he drives self and denies concerns with transportation. DME/HHC/SNF: Pt has a cane, walker, shower seat and grab bars in the bathroom. Pt denies previous HHC and SNF stays. Pt states no concerns with going home at time of dc. Pt states no further concerns/needs. CM to follow therapy. Advised pt to ask CM if any further question/concerns/needs arise, voices understanding. Pt Goal: Home Plan: Home with son support, follow therapy.
--- NOTE | 2020-06-24 11:23 | CASEMGMT ---
SW spoke with pt. No Advance care documents on file at [facility]. Pt states he believes his son Saul Lucas is HCPOA but pt has not completed a living will. Pt painful at this time and not able to discuss advance care planning further. ASIF Fernandez
--- NOTE | 2020-06-24 11:30 | CASEMGMT ---
Social Work Referral received for alcohol use. SW met with pt in room and introduced self and role of SW. Pt states he lives at home with his son Saul. Pt does state he has 5-6 drinks daily, some beer some liquor. Pt states he stopped drinking about three weeks ago but has not used a program to assist him with cessation. SW provided resources for pt and pt is agreeable to meet with [facility] to discuss alcohol cessation. Pt is painful and requesting readjusting in bed. Pain limiting pt ability to talk with SW at this time. Pt agreeable to referral to [facility]. Nursing notified of pt discomfort. VM left with Latanya Treatment Navigator at [facility]. ASIF Fernandez
--- NOTE | 2020-06-24 15:12 | PN.HOSP_ITS ---
Documented by User: Hannah Bronson DIRECTOR STRATEGY, DIRECTOR STRATEGY-C 06/24/20 15:28 Subjective Subjective: Patient seen and examined. Remains confused, intermittently drowsy. Denies withdrawal symptoms. Spoke extensively with patient's son who is worried patient will continue to drink when he returns home. Objective Data Objective Data Vital Signs: Vital Signs Temp Pulse Resp BP Pulse Ox 98.4 F 95 16 114/78 96 06/24/20 13:21 06/24/20 13:21 06/24/20 13:21 06/24/20 13:21 06/24/20 13:21 Oxygen Flow Rate (L/min) 2 Oxygen Delivery Method Room Air Weight: 215 lb 6.266 oz Body Mass Index (BMI) 27.6 Intake & Output: Intake and Output for Last 24 Hours 06/22/20 06/23/20 06/24/20 23:59 23:59 23:59 Intake Total 921.17 / 921.17 742 / 742 Balance 921.17 / 921.17 742 / 742 Lab / Micro Data Result Diagrams: 06/24/20 05:40 06/24/20 05:40 Labs: Laboratory Results - last 24 hr 06/23/20 06/23/20 06/23/20 18:00 18:00 18:00 WBC 18.8 H RBC 3.82 L Hgb 12.7 L Hct 37.3 L MCV 97.6 H MCH 33.2 H MCHC 34.0 RDW Std Deviation 48.0 H RDW Coeff of Lou 13.3 Plt Count 315 MPV 11.2 Immature Gran % (Auto) 1.200 H Neut % (Auto) 92.4 H Lymph % (Auto) 2.[address] [place] % (Auto) 3.3 Eos % (Auto) 0.0 Baso % (Auto) 0.2 Absolute Neuts (auto) 17.4 H Absolute Lymphs (auto) 0.55 L Nucleated RBC % 0 Differential Comment SCANNED PT 15.8 H INR 1.3 Sodium 131 L Potassium 2.8 L Chloride 94 L Carbon Dioxide 30.0 Anion Gap 7 BUN 21 H Creatinine 1.25 Estim Creat Clear Calc 63.02 Est GFR (MDRD) Af Amer 73 Est GFR (MDRD) Non-Af 61 BUN/Creatinine Ratio 16.8 Glucose 107 H Lactic Acid Calcium 8.5 Magnesium Total Bilirubin 2.60 H AST 64 H ALT 32 Alkaline Phosphatase 99 Total Creatine Kinase Troponin I < 0.015 Total Protein 6.4 Albumin 2.3 L Globulin 4.1 Albumin/Globulin Ratio 0.6 L Urine Color Urine Clarity Urine pH Ur Specific [place] Urine Protein Urine Glucose (UA) Urine Ketones Urine Occult Blood Urine Nitrite Urine Bilirubin Urine Urobilinogen Ur Leukocyte Esterase Urine RBC Urine WBC Ur Squamous Epith Cells Urine Bacteria Urine Mucus Urine Opiates Screen Urine Methadone Screen Ur Barbiturates Screen Ur Phencyclidine Scrn Ur Amphetamines Screen U Methamphetamin-MDMA U Benzodiazepines Scrn Urine Cocaine Screen U Cannabinoids Screen Ur Drug Screen Comment Ethyl Alcohol 06/23/20 06/23/20 06/23/20 18:00 18:00 18:00 WBC RBC Hgb Hct MCV MCH MCHC RDW Std Deviation RDW Coeff of Lou Plt Count MPV Immature Gran % (Auto) Neut % (Auto) Lymph % (Auto) [place] % (Auto) Eos % (Auto) Baso % (Auto) Absolute Neuts (auto) Absolute Lymphs (auto) Nucleated RBC % Differential Comment PT INR Sodium Potassium Chloride Carbon Dioxide Anion Gap BUN Creatinine Estim Creat Clear Calc Est GFR (MDRD) Af Amer Est GFR (MDRD) Non-Af BUN/Creatinine Ratio Glucose Lactic Acid 1.5 Calcium Magnesium Total Bilirubin AST ALT Alkaline Phosphatase Total Creatine Kinase 803 H Troponin I Total Protein Albumin Globulin Albumin/Globulin Ratio Urine Color Urine Clarity Urine pH Ur Specific [place] Urine Protein Urine Glucose (UA) Urine Ketones Urine Occult Blood Urine Nitrite Urine Bilirubin Urine Urobilinogen Ur Leukocyte Esterase Urine RBC Urine WBC Ur Squamous Epith Cells Urine Bacteria Urine Mucus Urine Opiates Screen Urine Methadone Screen Ur Barbiturates Screen Ur Phencyclidine Scrn Ur Amphetamines Screen U Methamphetamin-MDMA U Benzodiazepines Scrn Urine Cocaine Screen U Cannabinoids Screen Ur Drug Screen Comment Ethyl Alcohol < 3.0 06/23/20 06/23/20 06/23/20 18:00 19:10 19:10 WBC RBC Hgb Hct MCV MCH MCHC RDW Std Deviation RDW Coeff of Lou Plt Count MPV Immature Gran % (Auto) Neut % (Auto) Lymph % (Auto) [place] % (Auto) Eos % (Auto) Baso % (Auto) Absolute Neuts (auto) Absolute Lymphs (auto) Nucleated RBC % Differential Comment PT INR Sodium Potassium Chloride Carbon Dioxide Anion Gap BUN Creatinine Estim Creat Clear Calc Est GFR (MDRD) Af Amer Est GFR (MDRD) Non-Af BUN/Creatinine Ratio Glucose Lactic Acid Calcium Magnesium 1.6 Total Bilirubin AST ALT Alkaline Phosphatase Total Creatine Kinase Troponin I Total Protein Albumin Globulin Albumin/Globulin Ratio Urine Color Yellow Urine Clarity Cloudy Urine pH 6.0 Ur Specific [place] 1.020 Urine Protein 30 H Urine Glucose (UA) Normal Urine Ketones 5 H Urine Occult Blood 150 H Urine Nitrite Negative Urine Bilirubin 1 H Urine Urobilinogen 4 H Ur Leukocyte Esterase 500 H Urine RBC 0 SEEN Urine WBC 50-100 SEEN Ur Squamous Epith Cells 0-5 SEEN Urine Bacteria 2+ Urine Mucus 0 SEEN Urine Opiates Screen POSITIVE H Urine Methadone Screen NEGATIVE Ur Barbiturates Screen NEGATIVE Ur Phencyclidine Scrn NEGATIVE Ur Amphetamines Screen NEGATIVE U Methamphetamin-MDMA NEGATIVE U Benzodiazepines Scrn NEGATIVE Urine Cocaine Screen NEGATIVE U Cannabinoids Screen POSITIVE H Ur Drug Screen Comment Ethyl Alcohol 06/23/20 06/24/20 06/24/20 23:55 03:08 05:40 WBC 17.5 H RBC 3.79 L Hgb 12.6 L Hct 36.4 L MCV 96.0 H MCH 33.2 H MCHC 34.6 RDW Std Deviation 48.1 H RDW Coeff of Lou 13.5 Plt Count 278 MPV 12.0 Immature Gran % (Auto) 1.700 H Neut % (Auto) 90.9 H Lymph % (Auto) 3.[address] [place] % (Auto) 3.3 Eos % (Auto) 0.1 Baso % (Auto) 0.2 Absolute Neuts (auto) 15.9 H Absolute Lymphs (auto) 0.67 L Nucleated RBC % 0 Differential Comment PT INR Sodium Potassium Chloride Carbon Dioxide Anion Gap BUN Creatinine Estim Creat Clear Calc Est GFR (MDRD) Af Amer Est GFR (MDRD) Non-Af BUN/Creatinine Ratio Glucose Lactic Acid Calcium Magnesium Total Bilirubin AST ALT Alkaline Phosphatase Total Creatine Kinase Troponin I < 0.015 < 0.015 Total Protein Albumin Globulin Albumin/Globulin Ratio Urine Color Urine Clarity Urine pH Ur Specific [place] Urine Protein Urine Glucose (UA) Urine Ketones Urine Occult Blood Urine Nitrite Urine Bilirubin Urine Urobilinogen Ur Leukocyte Esterase Urine RBC Urine WBC Ur Squamous Epith Cells Urine Bacteria Urine Mucus Urine Opiates Screen Urine Methadone Screen Ur Barbiturates Screen Ur Phencyclidine Scrn Ur Amphetamines Screen U Methamphetamin-MDMA U Benzodiazepines Scrn Urine Cocaine Screen U Cannabinoids Screen Ur Drug Screen Comment Ethyl Alcohol 06/24/20 05:40 WBC RBC Hgb Hct MCV MCH MCHC RDW Std Deviation RDW Coeff of Lou Plt Count MPV Immature Gran % (Auto) Neut % (Auto) Lymph % (Auto) [place] % (Auto) Eos % (Auto) Baso % (Auto) Absolute Neuts (auto) Absolute Lymphs (auto) Nucleated RBC % Differential Comment PT INR Sodium 133 L Potassium 3.1 L Chloride 98 Carbon Dioxide 20.0 L Anion Gap 15 BUN 21 H Creatinine 0.95 Estim Creat Clear Calc 82.92 Est GFR (MDRD) Af Amer 100 Est GFR (MDRD) Non-Af 83 BUN/Creatinine Ratio 22.1 H Glucose 88 Lactic Acid Calcium 8.2 L Magnesium Total Bilirubin 2.20 H AST 61 H ALT 33 Alkaline Phosphatase 94 Total Creatine Kinase Troponin I < 0.015 Total Protein 6.2 L Albumin 2.2 L Globulin 4.0 Albumin/Globulin Ratio 0.6 L Urine Color Urine Clarity Urine pH Ur Specific [place] Urine Protein Urine Glucose (UA) Urine Ketones Urine Occult Blood Urine Nitrite Urine Bilirubin Urine Urobilinogen Ur Leukocyte Esterase Urine RBC Urine WBC Ur Squamous Epith Cells Urine Bacteria Urine Mucus Urine Opiates Screen Urine Methadone Screen Ur Barbiturates Screen Ur Phencyclidine Scrn Ur Amphetamines Screen U Methamphetamin-MDMA U Benzodiazepines Scrn Urine Cocaine Screen U Cannabinoids Screen Ur Drug Screen Comment Ethyl Alcohol Micro: Microbiology 06/23/20 19:10 Urine, Clean Catch Urine Culture - Preliminary Presumptive E. coli 06/23/20 18:00 Blood Culture (Wb) - Anticubital Left Blood Culture - Preliminary 06/23/20 17:55 Blood Culture (Wb) - Anticubital Right Blood Culture - Preliminary Radiography Diagnostic Testing: Radiology Impression Brain CT 06/23/20 17:44 IMPRESSION: No acute intracranial abnormality. Chronic involutional and ischemic changes of the brain. Ethmoid sinusitis. Electronically Signed: Lokesh Mcgarry MD at 18:58 EDT Tel , Service support , Lumbar Spine X-Ray 06/23/20 17:44 IMPRESSION: Straightening of the lumbar spine with otherwise normal alignment. Negative for fracture, osteolytic or blastic bone lesion. Mild to moderate disc narrowing with extensive spondylitic endplate changes. Electronically Signed: Tari Webb MD at 19:35 EDT , Service support , Chest X-Ray 06/23/20 18:50 IMPRESSION: No acute cardiopulmonary findings or changes. Electronically Signed: Tari Webb MD at 19:32 EDT , Service support , Physical Exam Const alert and no apparent distress Orientation / Consciousness: awake, oriented to person, oriented to place and oriented to time HEENT normocephalic and moist oral mucous membranes Eyes PERRL, EOMs intact bilaterally and conjunctivae normal Neck no lymphadenopathy Resp normal respiratory effort and clear to auscultation bilaterally Cardio regular rate, regular rhythm and no murmurs Peripheral Pulses: pulses 2+ throughout GI normal to inspection, nondistended, normoactive bowel sounds, non-tender and non-distended Extremity normal to inspection Skin no rashes or lesions noted Lesions: no lesions Rashes: no rashes Trauma: no lacerations or abrasions Neuro oriented x3 Sensorium / Orientation: awake and alert Psych affect normal Assessment & Plan Assessment/Plan (1) Encephalopathy: (2) Alcohol withdrawal: QUALIFIERS: Complication of substance-induced condition: with delirium Qualified Code(s): F10.231 - Alcohol dependence with withdrawal delirium PLAN: 1. Acute metabolic encephalopathy, secondary to acute UTI and alcohol withdrawal-treat underlying processes as noted below. 2. Acute UTI-continue IV Rocephin pending culture. 3. Alcohol withdrawal-medical stabilization per protocol. CIWA. Case management consulted. Continue thiamine, folic acid, multivitamin turner pplementation. 4. Hypokalemia-replace per protocol, trend BMP. 5. Anxiety-continue as needed regimen. 6. Hypertension- stable, not on regimen. DVT prophylaxis-Lovenox subcu This patient was seen by CHELSI Abarca under the supervision of Dr. Ortez. Documented by User: Dr. Girish Ortez MD 06/24/20 15:40 Subjective Subjective: Patient is drowsy. History of chronic alcohol use. Patient complain of localized left sided lumbar back pain with no radiation or sciatica type pain. No neurological symptoms including burning, paresthesia or numbness or tingling. No acute bladder or bowel issues. Patient denies abdominal pain. Objective Data Lab / Micro Data Result Diagrams: 06/24/20 05:40 06/24/20 05:40 Physical Exam Narrative Physical exam General: Awake, Oriented x3, Cooperative HEENT: Atraumatic, PERRLA, EOMI, Normocephalic Oral: No Gingival or Mucosal Lesions/ Ulcerations Neck: Supple, No JVD, Negative Carotid Bruits Lungs: Air entry diminished in bilateral lung bases. No crepitation/rhonchi Cardiovascular: Regular rate, Regular Rhythm, Normal S1, Normal S2, systolic murmur over right second ICS Abdomen: Bowel Sounds Present, Soft, Non Tender, Non-Distended : No renal angle tenderness. No suprapubic tenderness. Extremities: Mild bilateral ankle edema, Capillary Refill Less than 3 Seconds Skin: No rashes, No breakdown Musculoskeletal/spine: Tenderness present over lumbar region and paraspinal muscle. Neurological: Cranial nerves II-XII grossly intact, Deep Tendon Reflexes 2+/4 and Symmetrical, Neuro grossly intact Psych/Mental Status: Lethargic.. Assessment & Plan Assessment/Plan (1) Encephalopathy: (2) Alcohol withdrawal: QUALIFIERS: Complication of substance-induced condition: with delirium Qualified Code(s): F10.231 - Alcohol dependence with withdrawal delirium (3) Hypokalemia: PLAN: This patient was seen in conjunction with DIRECTOR STRATEGY, Hannah. I have independently interviewed and examined the patient and reviewed pertinent history, examination findings, laboratory and plan of management. I have reviewed the note and agree with the documented findings with the few additional points. In brief, patient is admitted for altered mental status and fall. Patient is chronic alcohol use and dependence although states quit 1-1/2 months ago but as per son last drink was 3 to 4 days ago. Patient also has hypokalemia. Has UTI although denies burning micturition, increased frequency or urgency. Patient also has chronic back pain for about 2 months. Rest of the comorbidities as mentioned above I have discussed my assessment with DIRECTOR STRATEGYHannah and orders have been reviewed. Visit Charges Inpatient E&M: 97839 Subs Hosp L2
--- NOTE | 2020-06-24 15:13 | US_ITS ---
STUDY: ABDOMINAL ULTRASOUND - RIGHT UPPER QUADRANT REASON FOR VISIT: Male, 70 years old Abdominal distention, suspected liver disease TECHNIQUE: Ultrasound evaluation of the right upper quadrant was performed with real-time and static emery-scale imaging. TECHNICAL QUALITY: Adequate. COMPARISON: None. FINDINGS: Liver: The liver measures 18.9 cm. There is normal echogenicity of the liver. The bile ducts are within normal limits. There is no demonstrated mass lesion. Gallbladder: Normal distended gallbladder. The gallbladder wall measures 4 mm. There is a negative sonographic Ramachandran''s sign. There is no pericholecystic fluid. There are no gallstones. Common Bile Duct (C.B.D.): The common bile duct measures 4 mm. Pancreas: Normal head and body of the pancreas. Tail not visualized secondary to bowel gas. There is no demonstrated pancreatic mass or cyst. Right Kidney: Normal size of the right kidney. The right kidney measures 11.6 x 1.7 x 4.9 cm. Normal renal cortex. The right cortex measures 1.3 cm. There is no demonstrated renal mass or cyst. There is no right hydronephrosis. US/Abdomen Limited IMPRESSION: Mild hepatomegaly without focal liver abnormality. Negative for dilated intrahepatic bile ducts. Normal gallbladder and nondistended common bile duct. Normal head and body of the pancreas. Tail not visualized secondary to bowel gas. Normal right kidney. Negative for ascites in the right upper quadrant. Electronically Signed: Tari Webb MD at 20:20 EDT , Service support ,
[2020-06-24] MEDS: Ketorolac 15 MG/ML Vial IV (15:50)
[2020-06-24] MEDS: Magnesium Chloride 64 MG Delay Rel.Tablet 128 MG PO ×2 (17:41→22:07)
[2020-06-24] MEDS: Ondansetron 4 MG/2 ML Vial IV (22:23)
[2020-06-25] VITALS (10 sets, daily range): BP systolic 112–159; BP diastolic 67–102; PULSE 78–105; RESP 16–20; TEMP 36.6–38.3; O2SAT 94–98
[2020-06-25 05:34] LABS: Hematocrit 36.7 % (40-54); Hemoglobin 12.6 g/dL (13.0-16.5); Mean Corp Hgb Conc 34.3 g/dL (32-36); Mean Corpuscular Hgb 33.2 pg (27.0-32.0); Mean Corpuscular Volume 96.6 fL (80-94); Mean Platelet Vol. 11.5 fl (6.2-12.0); Platelet Count 254 K/mm3 (150-450); RBC Distribution Width CV 13.5 % (11.6-14.6); RBC Distribution Width SD 48.6 fl (35.1-43.9); White Blood Count 18.9 K/mm3 (4.4-11.0)
[2020-06-25 05:53] LABS: Anion Gap 7 (5-15); BUN 18 mg/dL (7-18); BUN/Creat Ratio 23.6 RATIO (10-20); Calcium,Total 8.2 mg/dL (8.5-10.1); Chloride 103 mmol/L (98-107); Creatinine, Serum 0.76 mg/dL (0.70-1.30); EST Glomerular Filtration Rate 107 mL/min (>60); Est Glom Filt Rate - Afr Amer 130 mL/min (>60); Estimated Creatinine Clearance 78.78 ml/min; Glucose 99 mg/dL (74-106); Magnesium 1.6 mg/dL (1.6-2.6); Potassium 3.3 mmol/L (3.5-5.1); Sodium Level 135 mmol/L (136-145)
[2020-06-25] MEDS: Ceftriaxone 1 GM/50 ML BAG IV ×2 (08:46→15:54)
[2020-06-25] MEDS: Magnesium Chloride 64 MG Delay Rel.Tablet 128 MG PO ×2 (08:49→20:43)
[2020-06-25] MEDS: Lidocaine 5% Patch 1 PATCH TOPICAL (08:49)
[2020-06-25] MEDS: Folic Acid 1 MG Tablet PO ×2 (08:49→15:49)
[2020-06-25] MEDS: Enoxaparin 40 MG/0.4 ML Syringe SC (08:49)
--- NOTE | 2020-06-25 09:58 | CASEMGMT ---
Physician said patient's son was thinking patient needs PT/OT rehab. SW called patient's son Saul. Introduced self and role at [facility]. SW confirmed he feels patient needs short term physical rehab. ANDREA e-mailed patient's son a list of SNF providers including quality and resource use data and consistent with the patient?s preferred geographic region, medical needs, and insurance network. ANDREA told him days 1-20 are covered at 100% and then days 21-100 there is a daily co-pay of around $184. Patient has not had his COVID vaccines. ANDREA told him [facility] means no [facility]. ANDREA told him he will still get therapy during this time. He verbalized understanding. He will look at the list, talk with his brother, and get back with Social Work. Plan: SNF. Awaiting family's choices. Nazanin Rico DATA CLERK JANENE
--- NOTE | 2020-06-25 12:47 | CASEMGMT ---
ANDREA returned patient's son's phone call. He said he reviewed the list and their first choice is [facility]. ANDREA asked if he had a 2nd choice and he did not. He will continue to look at list and decide. ANDREA faxed referral to [facility] and also called Marija regarding referral. Await response. Plan: SNF pending accepting facility and patient being medically ready. Nazanin Rico GAME FARM SUPERVISOR JANENE
--- NOTE | 2020-06-25 14:29 | PN.HOSP_ITS ---
Documented by User: Hannah Bronson NP, SHEET METAL WORKER HELPER-C 06/25/20 14:38 Subjective Subjective: Patient seen and examined. More alert today. Asking when he can return home. Denies withdrawal symptoms. Reports intermittent chills. Objective Data Objective Data Vital Signs: Vital Signs Temp Pulse Resp BP Pulse Ox 100.4 F H 89 16 112/71 94 06/25/20 13:16 06/25/20 13:16 06/25/20 13:16 06/25/20 13:16 06/25/20 13:16 Oxygen Flow Rate (L/min) 2 Oxygen Delivery Method Room Air Weight: 215 lb 6.266 oz Body Mass Index (BMI) 27.6 Intake & Output: Intake and Output for Last 24 Hours 06/23/20 06/24/20 06/25/20 23:59 23:59 23:59 Intake Total 921.17 / 921.17 2905.66 / 3105.66 1842 / 1842 Balance 921.17 / 921.17 2905.66 / 3105.66 1842 / 1842 Lab / Micro Data Result Diagrams: 06/25/20 05:16 06/25/20 05:16 Labs: Laboratory Results - last 24 hr 06/25/20 06/25/20 05:16 05:16 WBC 18.9 H RBC 3.80 L Hgb 12.6 L Hct 36.7 L MCV 96.6 H MCH 33.2 H MCHC 34.3 RDW Std Deviation 48.6 H RDW Coeff of Lou 13.5 Plt Count 254 MPV 11.5 Sodium 135 L Potassium 3.3 L Chloride 103 Carbon Dioxide 25.0 Anion Gap 7 BUN 18 Creatinine 0.76 Estim Creat Clear Calc 78.78 Est GFR (MDRD) Af Amer 130 Est GFR (MDRD) Non-Af 107 BUN/Creatinine Ratio 23.6 H Glucose 99 Calcium 8.2 L Magnesium 1.6 Micro: Microbiology 06/23/20 19:10 Urine, Clean Catch Urine Culture - Final Presumptive E. coli 06/23/20 18:00 Blood Culture (Wb) - Anticubital Left Blood Culture - Preliminary GNR lactose manager technical services 06/23/20 17:55 Blood Culture (Wb) - Anticubital Right Blood Culture - Preliminary GNR lactose manager technical services Radiography Diagnostic Testing: Radiology Impression Abdomen Ultrasound 06/24/20 15:13 IMPRESSION: Mild hepatomegaly without focal liver abnormality. Negative for dilated intrahepatic bile ducts. Normal gallbladder and nondistended common bile duct. Normal head and body of the pancreas. Tail not visualized secondary to bowel gas. Normal right kidney. Negative for ascites in the right upper quadrant. Electronically Signed: Tari Webb MD at 20:20 EDT , Service support , Physical Exam Const alert, oriented x3 and no apparent distress Orientation / Consciousness: awake, oriented to person, oriented to place and oriented to time HEENT normocephalic and moist oral mucous membranes Eyes PERRL, EOMs intact bilaterally and conjunctivae normal Neck no lymphadenopathy Resp normal respiratory effort and clear to auscultation bilaterally Cardio regular rate, regular rhythm and no murmurs Peripheral Pulses: pulses 2+ throughout GI normal to inspection, nondistended, normoactive bowel sounds, non-tender and non-distended Extremity normal to inspection Skin no rashes or lesions noted Lesions: no lesions Rashes: no rashes Trauma: no lacerations or abrasions Neuro oriented x3 Sensorium / Orientation: awake and alert Psych affect normal Assessment & Plan Assessment/Plan (1) Urinary tract infection: QUALIFIERS: Hematuria presence: with hematuria Urinary tract infection type: site unspecified Qualified Code(s): N39.0 - Urinary tract infection, site not specified; R31.9 - Hematuria, unspecified (2) Alcohol withdrawal: QUALIFIERS: Complication of substance-induced condition: with delirium Qualified Code(s): F10.231 - Alcohol dependence with withdrawal delirium (3) Encephalopathy: PLAN: 1. Acute metabolic encephalopathy, secondary to acute UTI with bacteremia and alcohol withdrawal-treat underlying processes as noted below. 2. Acute E. coli UTI with associated bacteremia-continue IV Rocephin. Urine culture growing E. coli, pansensitive. Blood cultures 2 out of 2 growing GNR. Await final blood culture growth and sensitivities. 3. Alcohol withdrawal-medical stabilization per protocol. CIWA protocol. Case management consulted. Continue thiamine, folic acid, multivitamin supplementation. 4. Hypokalemia-replace per protocol, trend BMP. 5. Anxiety-continue as needed regimen. 6. Hypertension- stable, not on regimen. DVT prophylaxis-Lovenox subcu Discharge planning: SNF when medically stable, pending acceptance. This patient was seen by CHELSI Abarca under the supervision of Dr. Ortez. Documented by User: Dr. Girish Ortez MD 06/25/20 14:58 Objective Data Lab / Micro Data Result Diagrams: 06/25/20 05:16 06/25/20 05:16 Physical Exam Narrative Mild low-grade fever, 100.4, heart rate 94/min. Sinus rhythm. Physical exam General: Awake, Oriented x3, Cooperative HEENT: Atraumatic, PERRLA, EOMI, Normocephalic Oral: No Gingival or Mucosal Lesions/ Ulcerations Neck: Supple, No JVD, Negative Carotid Bruits Lungs: Air entry diminished in bilateral lung bases. No crepitation/rhonchi Cardiovascular: Regular rate, Regular Rhythm, Normal S1, Normal S2, systolic murmur over right second ICS Abdomen: Bowel Sounds Present, Soft, Non Tender, Non-Distended : No renal angle tenderness. No suprapubic tenderness. Extremities: Mild bilateral ankle edema, Capillary Refill Less than 3 Seconds Skin: No rashes, No breakdown Musculoskeletal/spine: Tenderness present over lumbar region and paraspinal muscle. Neurological: Cranial nerves II-XII grossly intact, Deep Tendon Reflexes 2+/4 and Symmetrical, Neuro grossly intact Psych/Mental Status: Lethargic.. Assessment & Plan Assessment/Plan (1) Urinary tract infection: QUALIFIERS: Hematuria presence: with hematuria Urinary tract infection type: site unspecified Qualified Code(s): N39.0 - Urinary tract infection, site not specified; R31.9 - Hematuria, unspecified (2) Alcohol withdrawal: QUALIFIERS: Complication of substance-induced condition: with delirium Qualified Code(s): F10.231 - Alcohol dependence with withdrawal delirium (3) Encephalopathy: PLAN: This patient was seen in conjunction with SHEET METAL WORKER HELPERHannah. I have independently interviewed and examined the patient and reviewed pertinent history, examination findings, laboratory and plan of management. I have reviewed the note and agree with the documented findings with the few additional points. In brief, patient is admitted for altered mental status and fall. Patient is chronic alcohol use and dependence although states quit 1-1/2 months ago but as per son last drink was 3 to 4 days ago. Patient also has hypokalemia. Has UTI although denies burning micturition, increased frequency or urgency. Urine culture in both bottles of blood culture shows presumptive E. coli, on IV ceftriaxone suggestive of sepsis with bacteremia from UTI. Patient has leukocytosis. Liver ultrasound does not show dilated intra or extrahepatic biliary tract. Normal pancreatic head and body. Mild hepatomegaly. On folic acid and thiamine Patient also has chronic back pain for about 2 months. Rest of the comorbidities as mentioned above I have discussed my assessment with SHEET METAL WORKER HELPERHannah and orders have been reviewed. Microbiology Past 72 Hours 06/23/20 17:55 Blood Culture (Wb) - Anticubital Right Blood Culture - Preliminary Escherichia coli 06/23/20 18:00 Blood Culture (Wb) - Anticubital Left Blood Culture - Final GNR lactose manager technical services 06/23/20 19:10 Urine, Clean Catch Urine Culture - Final Presumptive E. coli Laboratory Results 06/25/20 05:16: WBC 18.9 H, RBC 3.80 L, Hgb 12.6 L, Hct 36.7 L, MCV 96.6 H, MCH 33.2 H, MCHC 34.3, RDW Std Deviation 48.6 H, RDW Coeff of Lou 13.5, Plt Count 254, MPV 11.5 06/25/20 05:16: Sodium 135 L, Potassium 3.3 L, Chloride 103, Carbon Dioxide 25.0, Anion Gap 7, BUN 18, Creatinine 0.76, Estim Creat Clear Calc 78.78, Est GFR (MDRD) Af Amer 130, Est GFR (MDRD) Non-Af 107, BUN/Creatinine Ratio 23.6 H, Glucose 99, Calcium 8.2 L, Magnesium 1.6 Clinical Impression(s) from Imaging Studies Brain CT 06/23/20 17:44 IMPRESSION: No acute intracranial abnormality. Chronic involutional and ischemic changes of the brain. Ethmoid sinusitis. Lumbar Spine X-Ray 06/23/20 17:44 IMPRESSION: Straightening of the lumbar spine with otherwise normal alignment. Negative for fracture, osteolytic or blastic bone lesion. Mild to moderate disc narrowing with extensive spondylitic endplate changes. Chest X-Ray 06/23/20 18:50 IMPRESSION: No acute cardiopulmonary findings or changes. Abdomen Ultrasound 06/24/20 15:13 IMPRESSION: Mild hepatomegaly without focal liver abnormality. Negative for dilated intrahepatic bile ducts. Normal gallbladder and nondistended common bile duct. Normal head and body of the pancreas. Tail not visualized secondary to bowel gas. Normal right kidney. Negative for ascites in the right upper quadrant. Visit Charges Inpatient E&M: 70250 Init Hosp L3
--- NOTE | 2020-06-25 15:23 | CASEMGMT ---
ANDREA received a call from Marija at [facility] and they are not able to accept patient. ANDREA called deon's son and let him know. He has not picked a 2nd option yet. ANDREA told him the [facility] said patient will be here through the weekend. ANDREA told him to call ANDREA's phone and leave a message with his next 2 choices. ANDREA will follow up with him on Sunday. Plan: d/c to SNF pending family picking a facility and facility accepting. Nazanin WATTERS
[2020-06-25] MEDS: Potassium Chloride Oral Tablet 20 MEQ 40 MEQ PO (15:49)
[2020-06-25 16:08] LABS: Creatine Kinase MB 0 % (0-3); Creatine Kinase MM 100 % (97-100); Creatine Kinase,Total,Serum 561 U/L (41-331); Macro I 0 % (Not Observed); Macro II 0 % (Not Observed)
[2020-06-25] MEDS: Acetaminophen 325 MG Tablet 650 MG PO (17:51)
[2020-06-25 20:52] LABS: Creatine Kinase BB 0 % (0)
[2020-06-26] VITALS (12 sets, daily range): BP systolic 129–156; BP diastolic 71–94; PULSE 57–96; RESP 16–20; TEMP 36.6–39.1; O2SAT 93–98
[2020-06-26 06:54] LABS: Absolute Lymphocyte Count 0.68 X10^3/uL (0.83-4.51); Basophil# 0.03 X10^3/uL; Basophil% 0.2 % (0-1); Eosinophil# 0.01 X10^3/uL; Eosinophils% 0.1 % (0-5); Hemoglobin 11.7 g/dL (13.0-16.5); Lymphocyte # 0.68 X10^3/ul (0.83-4.51); Lymphocyte % 3.4 % (19-41); Mean Corp Hgb Conc 34.4 g/dL (32-36); Mean Corpuscular Hgb 33.1 pg (27.0-32.0); Mean Corpuscular Volume 96.3 fL (80-94); Mean Platelet Vol. 12.3 fl (6.2-12.0); Monocyte# 0.83 X10^3/uL; Monocyte% 4.2 % (0-10); NRBC Flagged by Analyzer 0 % (0-5); Neutrophil # 17.95 X10^3/uL (2.7-7.7); Neutrophil % 90.9 % (47-70); Platelet Count 230 K/mm3 (150-450); RBC Distribution Width CV 13.9 % (11.6-14.6); RBC Distribution Width SD 49.7 fl (35.1-43.9); Red Blood Count 3.53 M/mm3 (4.6-6.2); White Blood Count 19.7 K/mm3 (4.4-11.0)
[2020-06-26 07:15] LABS: Anion Gap 5 (5-15); BUN 14 mg/dL (7-18); BUN/Creat Ratio 18.7 RATIO (10-20); Chloride 105 mmol/L (98-107); Creatinine, Serum 0.75 mg/dL (0.70-1.30); EST Glomerular Filtration Rate 109 mL/min (>60); Est Glom Filt Rate - Afr Amer 132 mL/min (>60); Estimated Creatinine Clearance 78.78 ml/min; Glucose 101 mg/dL (74-106); Potassium 3.5 mmol/L (3.5-5.1); Sodium Level 137 mmol/L (136-145)
[2020-06-26] MEDS: Ketorolac 15 MG/ML Vial IV ×2 (08:39→21:21)
[2020-06-26] MEDS: 0.9% Saline Lock 10 ML Syringe IV ×2 (08:39→21:22)
--- NOTE | 2020-06-26 09:57 | PCM.PN.HOSP ---
Documented by User: Hannah Bronson NP, TELECOMMUNICATIONS MANAGER-C 06/26/20 10:01 Subjective Subjective: Patient seen and examined. No acute events overnight. Denies new symptoms or complaints. Objective Data Objective Data Vital Signs: Vital Signs Temp Pulse Resp BP Pulse Ox 98.5 F 93 18 156/93 H 96 06/26/20 08:19 06/26/20 08:19 06/26/20 08:19 06/26/20 08:19 06/26/20 08:19 Oxygen Flow Rate (L/min) 2 Oxygen Delivery Method Room Air Weight: 215 lb 6.266 oz Body Mass Index (BMI) 27.6 Intake & Output: Intake and Output for Last 24 Hours 06/24/20 06/25/20 06/26/20 23:59 23:59 23:59 Intake Total 2905.66 / 3105.66 3104 / 3104 1150 / 1150 Balance 2905.66 / 3105.66 3104 / 3104 1150 / 1150 Lab / Micro Data Result Diagrams: 06/26/20 06:23 06/26/20 06:23 Labs: Laboratory Results - last 24 hr 06/24/20 06/26/20 06/26/20 05:40 06:23 06:23 WBC 19.7 H RBC 3.53 L Hgb 11.7 L Hct 34.0 L MCV 96.3 H MCH 33.1 H MCHC 34.4 RDW Std Deviation 49.7 H RDW Coeff of Lou 13.9 Plt Count 230 MPV 12.3 H Immature Gran % (Auto) 1.200 H Neut % (Auto) 90.9 H Lymph % (Auto) 3.4 L George % (Auto) 4.2 Eos % (Auto) 0.1 Baso % (Auto) 0.2 Absolute Neuts (auto) 18.0 H Absolute Lymphs (auto) 0.68 L Nucleated RBC % 0 Sodium 137 Potassium 3.5 Chloride 105 Carbon Dioxide 27.0 Anion Gap 5 BUN 14 Creatinine 0.75 Estim Creat Clear Calc 78.78 Est GFR (MDRD) Af Amer 132 Est GFR (MDRD) Non-Af 109 BUN/Creatinine Ratio 18.7 Glucose 101 Calcium 8.0 L CK Isoenzymes 561 H CK-MM (CK-3) 100 CK-MB (CK-2) 0 CK-BB (CK-1) 0 Macro CK Type I 0 Macro CK Type II 0 Micro: Microbiology 06/23/20 17:55 Blood Culture (Wb) - Anticubital Right Blood Culture - Final Escherichia coli 06/23/20 18:00 Blood Culture (Wb) - Anticubital Left Blood Culture - Final GNR lactose php lamp developer 06/23/20 19:10 Urine, Clean Catch Urine Culture - Final Presumptive E. coli Physical Exam Const alert, oriented x3 and no apparent distress Orientation / Consciousness: awake, oriented to person, oriented to place and oriented to time HEENT normocephalic and moist oral mucous membranes Eyes PERRL, EOMs intact bilaterally and conjunctivae normal Neck no lymphadenopathy Resp normal respiratory effort and clear to auscultation bilaterally Cardio regular rate, regular rhythm and no murmurs Peripheral Pulses: pulses 2+ throughout GI normal to inspection, nondistended, normoactive bowel sounds, non-tender and non-distended Extremity normal to inspection Skin no rashes or lesions noted Lesions: no lesions Rashes: no rashes Trauma: no lacerations or abrasions Neuro oriented x3 Sensorium / Orientation: awake and alert Psych affect normal Assessment & Plan Assessment/Plan (1) Urinary tract infection: QUALIFIERS: Hematuria presence: with hematuria Urinary tract infection type: site unspecified Qualified Code(s): N39.0 - Urinary tract infection, site not specified; R31.9 - Hematuria, unspecified (2) Alcohol withdrawal: QUALIFIERS: Complication of substance-induced condition: with delirium Qualified Code(s): F10.231 - Alcohol dependence with withdrawal delirium (3) Encephalopathy: PLAN: 1. Acute metabolic encephalopathy, secondary to acute UTI with bacteremia and alcohol withdrawal-treat underlying processes as noted below. Improved. 2. Acute E. coli UTI with associated E. coli bacteremia-continue IV Rocephin. Urine culture growing E. coli, pansensitive. Blood cultures 2 out of 2 growing GNR/E. coli. Await final blood culture growth and sensitivities. 3. Alcohol withdrawal-medical stabilization per protocol. CIWA protocol. Case management consulted. Continue thiamine, folic acid, multivitamin supplementation. 4. Hypokalemia-replace per protocol, trend BMP. 5. Anxiety-continue as needed regimen. 6. Hypertension- stable, not on regimen. DVT prophylaxis-Lovenox subcu Discharge planning: SNF when medically stable, pending acceptance. This patient was seen by CHELSI Abarca under the supervision of Dr. Ortez. Documented by User: Dr. Girish Ortez MD 06/26/20 11:59 Subjective Subjective: Patient states he wants to go home. Was advised to stay is still having low-grade fever, last evening 101 Fahrenheit. Currently afebrile Objective Data Lab / Micro Data Result Diagrams: 06/26/20 06:23 06/26/20 06:23 Physical Exam Narrative Physical exam General: Awake, intermittent confusion and disorientation, Cooperative HEENT: Atraumatic, PERRLA, EOMI, Normocephalic Oral: No Gingival or Mucosal Lesions/ Ulcerations Neck: Supple, No JVD, Negative Carotid Bruits Lungs: Air entry diminished in bilateral lung bases. No crepitation/rhonchi Cardiovascular: Regular rate, Regular Rhythm, Normal S1, Normal S2, systolic murmur over right second ICS Abdomen: Bowel Sounds Present, Soft, Non Tender, Non-Distended : No renal angle tenderness. No suprapubic tenderness. Extremities: Mild bilateral ankle edema, Capillary Refill Less than 3 Seconds Skin: No rashes, No breakdown Musculoskeletal/spine: Tenderness improved over lumbar region and paraspinal muscle. Weakness in both lower extremities, 3+/5. Neurological: Cranial nerves II-XII grossly intact, Deep Tendon Reflexes 2+/4 and Symmetrical, Neuro grossly intact Psych/Mental Status: Lethargic.. Assessment & Plan Assessment/Plan (1) Urinary tract infection: QUALIFIERS: Hematuria presence: with hematuria Urinary tract infection type: site unspecified Qualified Code(s): N39.0 - Urinary tract infection, site not specified; R31.9 - Hematuria, unspecified (2) Alcohol withdrawal: QUALIFIERS: Complication of substance-induced condition: with delirium Qualified Code(s): F10.231 - Alcohol dependence with withdrawal delirium (3) Encephalopathy: PLAN: This patient was seen in conjunction with TELECOMMUNICATIONS MANAGERHannah. I have independently interviewed and examined the patient and reviewed pertinent history, examination findings, laboratory and plan of management. I have reviewed the note and agree with the documented findings with the few additional points. In brief, patient is admitted for altered mental status and fall. Patient is chronic alcohol use and dependence although states quit 1-1/2 months ago but as per son last drink was 3 to 4 days ago. Patient also has hypokalemia. Has UTI although denies burning micturition, increased frequency or urgency. Urine culture in both bottles of blood culture shows E. coli, on IV 2 g ceftriaxone suggestive of sepsis with bacteremia from UTI. Patient has leukocytosis. Liver ultrasound does not show dilated intra or extrahepatic biliary tract. Normal pancreatic head and body. Mild hepatomegaly. On folic acid and thiamine Patient also has chronic back pain for about 2 months. Generalized weakness. PT and OT. Discharge planning: SNF Rest of the comorbidities as mentioned above I have discussed my assessment with TELECOMMUNICATIONS MANAGERHannah and orders have been reviewed. Microbiology Past 72 Hours 06/23/20 17:55 Blood Culture (Wb) - Anticubital Right Blood Culture - Final Escherichia coli 06/23/20 18:00 Blood Culture (Wb) - Anticubital Left Blood Culture - Final GNR lactose php lamp developer 06/23/20 19:10 Urine, Clean Catch Urine Culture - Final Presumptive E. coli Laboratory Results 06/24/20 05:40: CK Isoenzymes 561 H, CK-MM (CK-3) 100, CK-MB (CK-2) 0, CK-BB (CK-1) 0, Macro CK Type I 0, Macro CK Type II 0 06/26/20 06:23: WBC 19.7 H, RBC 3.53 L, Hgb 11.7 L, Hct 34.0 L, MCV 96.3 H, MCH 33.1 H, MCHC 34.4, RDW Std Deviation 49.7 H, RDW Coeff of Lou 13.9, Plt Count 230, MPV 12.3 H, Immature Gran % (Auto) 1.200 H, Neut % (Auto) 90.9 H, Lymph % (Auto) 3.4 L, George % (Auto) 4.2, Eos % (Auto) 0.1, Baso % (Auto) 0.2, Absolute Neuts (auto) 18.0 H, Absolute Lymphs (auto) 0.68 L, Nucleated RBC % 0 05/08/21 06:23: Sodium 137, Potassium 3.5, Chloride 105, Carbon Dioxide 27.0, Anion Gap 5, BUN 14, Creatinine 0.75, Estim Creat Clear Calc 78.78, Est GFR (MDRD) Af Amer 132, Est GFR (MDRD) Non-Af 109, BUN/Creatinine Ratio 18.7, Glucose 101, Calcium 8.0 L Visit Charges Inpatient E&M: 11725 Subs Hosp L2
[2020-06-26] MEDS: Enoxaparin 40 MG/0.4 ML Syringe SC (10:18)
[2020-06-26] MEDS: Folic Acid 1 MG Tablet PO ×2 (10:19→17:10)
[2020-06-26] MEDS: Magnesium Chloride 64 MG Delay Rel.Tablet 128 MG PO (10:19)
[2020-06-26] MEDS: Lidocaine 5% Patch 1 PATCH TOPICAL (10:21)
--- NOTE | 2020-06-26 14:35 | CASEMGMT ---
Social Work Patient son, Saul. Saul request to speak with social work. Saul reports first choice of SNF is now [facility] ([facility]). This social worker assistant able to confirm choice of SNF with patient. Patient reports to be agreeable with SNF placement and referral to [facility]. Social Work to continue to follow. Marilee LENZ, TALITAS
[2020-06-26] MEDS: Acetaminophen 325 MG Tablet 650 MG PO (21:20)
[2020-06-27] VITALS (11 sets, daily range): BP systolic 106–138; BP diastolic 71–84; PULSE 70–95; RESP 18–20; TEMP 36.7–38.5; O2SAT 94–98
[2020-06-27] MEDS: Acetaminophen 325 MG Tablet 650 MG PO ×3 (06:50→17:45)
[2020-06-27 07:24] LABS: Anion Gap 8 (5-15); BUN 16 mg/dL (7-18); BUN/Creat Ratio 20.3 RATIO (10-20); Calcium,Total 8.3 mg/dL (8.5-10.1); Chloride 104 mmol/L (98-107); Creatinine, Serum 0.79 mg/dL (0.70-1.30); EST Glomerular Filtration Rate 103 mL/min (>60); Est Glom Filt Rate - Afr Amer 125 mL/min (>60); Estimated Creatinine Clearance 78.78 ml/min; Glucose 90 mg/dL (74-106); Potassium 3.8 mmol/L (3.5-5.1); Sodium Level 138 mmol/L (136-145)
[2020-06-27] MEDS: Folic Acid 1 MG Tablet PO ×2 (08:40→17:43)
[2020-06-27] MEDS: Lidocaine 5% Patch 1 PATCH TOPICAL (08:40)
[2020-06-27] MEDS: Enoxaparin 40 MG/0.4 ML Syringe SC (08:40)
[2020-06-27] MEDS: Losartan Potassium 100 MG Tablet PO (08:47)
[2020-06-27] MEDS: Venlafaxine XR 75 MG Capsule PO (08:47)
[2020-06-27] MEDS: NIFEdipine 90 MG Tablet PO (08:47)
--- NOTE | 2020-06-27 10:17 | PN.HOSP_ITS ---
Documented by User: Hannah Bronson NP, ANATOMY PROFESSOR-C 06/27/20 10:22 Subjective Subjective: Patient seen and examined. Continues to have intermittent fever. Denies current symptoms or complaints. Asking when he can return home. Objective Data Objective Data Vital Signs: Vital Signs Temp Pulse Resp BP Pulse Ox 100.4 F H 90 18 138/84 H 94 06/27/20 08:45 06/27/20 08:45 06/27/20 08:45 06/27/20 08:45 06/27/20 08:45 Oxygen Flow Rate (L/min) 2 Oxygen Delivery Method Room Air Weight: 215 lb 6.266 oz Body Mass Index (BMI) 27.6 Intake & Output: Intake and Output for Last 24 Hours 06/25/20 06/26/20 06/27/20 23:59 23:59 23:59 Intake Total 3104 / 3104 2784.00 / 2934.00 1685 / 1685 Balance 3104 / 3104 2784.00 / 2934.00 1685 / 1685 Lab / Micro Data Result Diagrams: 06/26/20 06:23 06/27/20 05:57 Labs: Laboratory Results - last 24 hr 06/27/20 05:57 Sodium 138 Potassium 3.8 Chloride 104 Carbon Dioxide 26.0 Anion Gap 8 BUN 16 Creatinine 0.79 Estim Creat Clear Calc 78.78 Est GFR (MDRD) Af Amer 125 Est GFR (MDRD) Non-Af 103 BUN/Creatinine Ratio 20.3 H Glucose 90 Calcium 8.3 L Micro: Microbiology 06/23/20 17:55 Blood Culture (Wb) - Anticubital Right Blood Culture - Final Escherichia coli 06/23/20 18:00 Blood Culture (Wb) - Anticubital Left Blood Culture - Final GNR lactose clinical specialist vascular 06/23/20 19:10 Urine, Clean Catch Urine Culture - Final Presumptive E. coli Physical Exam Const alert, oriented x3 and no apparent distress Orientation / Consciousness: awake, oriented to person, oriented to place and oriented to time HEENT normocephalic and moist oral mucous membranes Eyes PERRL, EOMs intact bilaterally and conjunctivae normal Neck no lymphadenopathy Resp normal respiratory effort and clear to auscultation bilaterally Cardio regular rate, regular rhythm and no murmurs Peripheral Pulses: pulses 2+ throughout GI normal to inspection, nondistended, normoactive bowel sounds, non-tender and non-distended Extremity normal to inspection Skin no rashes or lesions noted Lesions: no lesions Rashes: no rashes Trauma: no lacerations or abrasions Neuro oriented x3 Sensorium / Orientation: awake and alert Psych affect normal Assessment & Plan Assessment/Plan (1) Urinary tract infection: QUALIFIERS: Hematuria presence: with hematuria Urinary tract infection type: site unspecified Qualified Code(s): N39.0 - Urinary tract infection, site not specified; R31.9 - Hematuria, unspecified (2) Encephalopathy: (3) Alcohol withdrawal: QUALIFIERS: Complication of substance-induced condition: with delirium Qualified Code(s): F10.231 - Alcohol dependence with withdrawal delirium PLAN: 1. Acute metabolic encephalopathy, secondary to acute UTI with bacteremia and alcohol withdrawal-treat underlying processes as noted below. Improved. 2. Acute E. coli UTI with associated E. coli bacteremia-continue IV Rocephin. Urine culture growing E. coli, pansensitive. Blood cultures 2 out of 2 growing GNR/E. coli. Patient continues to have intermittent fever, repeat blood cultures ordered. Consult ID. 3. Alcohol withdrawal-medical stabilization per protocol. CIWA protocol. Case management consulted. Continue thiamine, folic acid, multivitamin supplement ation. 4. Hypokalemia-replace per protocol, trend BMP. 5. Anxiety-continue as needed regimen. 6. Hypertension- stable, not on regimen. DVT prophylaxis-Lovenox subcu Discharge planning: SNF when medically stable, pending acceptance. This patient was seen by CHELSI Abarca under the supervision of Dr. Ortez. Documented by User: Dr. Girish Ortez MD 06/27/20 12:30 Subjective Subjective: Patient continues to spike fever, T-max 102.3 Fahrenheit last night, 101.3 Fahrenheit in the morning. IV antibiotic changed to Zosyn to make broad- spectrum although ceftriaxone is sensitive to E. coli. Mild reflex tachycardia during fever. Objective Data Lab / Micro Data Result Diagrams: 06/26/20 06:23 06/27/20 05:57 Physical Exam Narrative Physical exam General: Awake, alert, oriented x3, Cooperative HEENT: Atraumatic, PERRLA, EOMI, Normocephalic Oral: No Gingival or Mucosal Lesions/ Ulcerations Neck: Supple, No JVD, Negative Carotid Bruits Lungs: Air entry diminished in bilateral lung bases. No crepitation/rhonchi Cardiovascular: Regular rate, Regular Rhythm, Normal S1, Normal S2, systolic murmur over right second ICS Abdomen: Bowel Sounds Present, Soft, Non Tender, Non-Distended : No renal angle tenderness. No suprapubic tenderness. Extremities: Mild bilateral ankle edema, Capillary Refill Less than 3 Seconds Skin: No rashes, No breakdown Musculoskeletal/spine: Tenderness improved over lumbar region and paraspinal muscle. Weakness in both lower extremities, 3+/5. Neurological: Cranial nerves II-XII grossly intact, Deep Tendon Reflexes 2+/4 and Symmetrical, Neuro grossly intact Psych/Mental Status: Normal affect Assessment & Plan Assessment/Plan (1) Urinary tract infection: QUALIFIERS: Hematuria presence: with hematuria Urinary tract infection type: site unspecified Qualified Code(s): N39.0 - Urinary tract infection, site not specified; R31.9 - Hematuria, unspecified PLAN: This patient was seen in conjunction with ANATOMY PROFESSOR, Hannah. I have independently interviewed and examined the patient and reviewed pertinent history, examination findings, laboratory and plan of management. I have reviewed the note and agree with the documented findings with the few additional points. In brief, patient is admitted for altered mental status and fall. Patient is chronic alcohol use and dependence although states quit 1-1/2 months ago but as per son last drink was 3 to 4 days ago. Patient also has hypokalemia; resolved. Has UTI although denies burning micturition, increased frequency or urgency. Urine culture in both bottles of blood culture shows E. coli, suggestive of sepsis with bacteremia from UTI. Patient has leukocytosis. 06/27: As patient continued to spike fever, high-grade antibiotic broadened to include IV Zosyn. Will do ID consult. Repeat blood culture ordered. Liver ultrasound does not show dilated intra or extrahepatic biliary tract. Normal pancreatic head and body. Mild hepatomegaly. On folic acid and thiamine Patient also has chronic back pain for about 2 months. Generalized weakness. PT and OT. Discharge planning: SNF Rest of the comorbidities as mentioned above I have discussed my assessment with ANATOMY PROFESSORHannah and orders have been reviewed. Microbiology Past 72 Hours 06/23/20 17:55 Blood Culture (Wb) - Anticubital Right Blood Culture - Final Escherichia coli 06/23/20 18:00 Blood Culture (Wb) - Anticubital Left Blood Culture - Final GNR lactose clinical specialist vascular 06/23/20 19:10 Urine, Clean Catch Urine Culture - Final Presumptive E. coli Laboratory Results 06/27/20 05:57: Sodium 138, Potassium 3.8, Chloride 104, Carbon Dioxide 26.0, Anion Gap 8, BUN 16, Creatinine 0.79, Estim Creat Clear Calc 78.78, Est GFR (MDRD) Af Amer 125, Est GFR (MDRD) Non-Af 103, BUN/Creatinine Ratio 20.3 H, Glucose 90, Calcium 8.3 L Visit Charges Inpatient E&M: 11284 Subs Hosp L2
[2020-06-27] MEDS: 0.9% Saline Lock 10 ML Syringe IV (13:03)
[2020-06-27] MEDS: Ketorolac 15 MG/ML Vial IV (13:03)
--- NOTE | 2020-06-27 15:59 | NURSING ---
Patient's son, Saul, in to visit with patient. Saul informed this RN that he would prefer the patient to go to TCU if possible, rather than [facility]. Note left for SW to address 06/28.
[2020-06-28] VITALS (8 sets, daily range): BP systolic 101–130; BP diastolic 53–70; PULSE 80–96; RESP 18; TEMP 36.7–37.3; O2SAT 95–97
[2020-06-28] MEDS: Ketorolac 15 MG/ML Vial IV (01:36)
[2020-06-28] MEDS: 0.9% Saline Lock 10 ML Syringe IV (01:36)
[2020-06-28] MEDS: oxyCODONE 5 MG Tablet PO (04:01)
[2020-06-28] MEDS: Acetaminophen 325 MG Tablet 650 MG PO (04:01)
[2020-06-28 05:59] LABS: Absolute Lymphocyte Count 0.82 X10^3/uL (0.83-4.51); Absolute Neutrophil Count 13.6 X10^3/uL (2.0-7.7); Basophil# 0.03 X10^3/uL; Basophil% 0.2 % (0-1); Eosinophil# 0.05 X10^3/uL; Eosinophils% 0.3 % (0-5); Hematocrit 31.1 % (40-54); Hemoglobin 10.1 g/dL (13.0-16.5); Lymphocyte # 0.82 X10^3/ul (0.83-4.51); Lymphocyte % 5.3 % (19-41); Mean Corp Hgb Conc 32.5 g/dL (32-36); Mean Corpuscular Hgb 31.8 pg (27.0-32.0); Mean Corpuscular Volume 97.8 fL (80-94); Monocyte% 5.1 % (0-10); NRBC Flagged by Analyzer 0 % (0-5); Neutrophil # 13.63 X10^3/uL (2.7-7.7); Neutrophil % 87.6 % (47-70); Platelet Count 323 K/mm3 (150-450); RBC Distribution Width CV 14.2 % (11.6-14.6); RBC Distribution Width SD 51.7 fl (35.1-43.9); Red Blood Count 3.18 M/mm3 (4.6-6.2); White Blood Count 15.6 K/mm3 (4.4-11.0)
[2020-06-28] MEDS: NIFEdipine 90 MG Tablet PO (07:46)
[2020-06-28] MEDS: Lidocaine 5% Patch 1 PATCH TOPICAL (07:46)
[2020-06-28] MEDS: Enoxaparin 40 MG/0.4 ML Syringe SC (07:47)
[2020-06-28] MEDS: Losartan Potassium 100 MG Tablet PO (07:47)
[2020-06-28] MEDS: Folic Acid 1 MG Tablet PO (07:47)
[2020-06-28] MEDS: Venlafaxine XR 75 MG Capsule PO (07:47)
--- NOTE | 2020-06-28 11:12 | CASEMGMT ---
ANDREA spoke with [facility] and they can take patient. ANDREA will talk with patient and his son. Plan: d/c to [facility] TCU under skilled level of care. Nazanin WATTERS
--- NOTE | 2020-06-28 11:17 | CASEMGMT ---
Addendum entered by Nazanin Rico 06/28/20 14:53: SW spoke with patient and he was aware of the transition to TCU. Plan: d/c to [facility] TCU under skilled level of care. Nazanin WATTERS Original Note: SW received a voice mail from patient's son indicating he would prefer [facility] TCU for patient. He did mention something in this voice mail about picking TCU because they do not have the same visitation restrictions that the [facility] have. SW spoke with patient's son and let him know that TCU can take patient. SW did reiterate that patient will have to quarantine for 14 days and he cannot have visitors at that time. SW told him after that they schedule visits. He verbalized understanding. SW will also talk with patient if he is alert and oriented now. Nazanin WATTERS
--- NOTE | 2020-06-28 13:05 | CASEMGMT ---
[facility] palliative screening completed and pt does not meet criteria at this time. SStlaury RN CM
--- NOTE | 2020-06-28 13:23 | PN.HOSP_ITS ---
Subjective Subjective: Patient seen and examined. Feels improved this morning. Fever improving. Denies symptoms or complaints. Objective Data Objective Data Vital Signs: Vital Signs Temp Pulse Resp BP Pulse Ox 98.0 F 89 18 109/64 97 06/28/20 07:59 06/28/20 11:00 06/28/20 07:59 06/28/20 07:59 06/28/20 07:59 Oxygen Flow Rate (L/min) 2 Oxygen Delivery Method Room Air Weight: 215 lb 6.266 oz Body Mass Index (BMI) 27.6 Intake & Output: Intake and Output for Last 24 Hours 06/26/20 06/27/20 06/28/20 23:59 23:59 23:59 Intake Total 2784.00 / 2934.00 2984 / 3224 195.67 / 1957. Balance 2784.00 / 2934.00 2984 / 3224 1957.67 / Lab / Micro Data Result Diagrams: 06/28/20 05:32 06/27/20 05:57 Labs: Laboratory Results - last 24 hr 06/28/20 05:32 WBC 15.6 H RBC 3.18 L Hgb 10.1 L Hct 31.1 L MCV 97.8 H MCH 31.8 MCHC 32.5 D RDW Std Deviation 51.7 H RDW Coeff of Lou 14.2 Plt Count 323 MPV 11.0 Immature Gran % (Auto) 1.500 H Neut % (Auto) 87.6 H Lymph % (Auto) 5.[address] [place] % (Auto) 5.1 Eos % (Auto) 0.3 Baso % (Auto) 0.2 Absolute Neuts (auto) 13.6 H Absolute Lymphs (auto) 0.82 L Nucleated RBC % 0 Micro: Microbiology 06/23/20 17:55 Blood Culture (Wb) - Anticubital Right Blood Culture - Final Escherichia coli 06/23/20 18:00 Blood Culture (Wb) - Anticubital Left Blood Culture - Final GNR lactose equipment associate 06/23/20 19:10 Urine, Clean Catch Urine Culture - Final Presumptive E. coli
[2020-06-28 13:58] LABS: Probe Check PASS; Specimen Processing Control PASS
--- NOTE | 2020-06-28 14:20 | TREXTCAR_ITS ---
Diet 06/23/20 22:21 Diet: Cardiac - Heart Healthy Food consistency:: Pureed Liquid Consistency:: [place]/Mildly Thick Is pt able to select menu?: No Diet Comments: NO STRAWS; 1:1 supervised; upright in chair for meals Routine Orders/Code Status Enema Type: Fleetz Enema Frequency: Daily PRN Suppository Type: Dulcolax 10mg Suppository Frequency: Daily PRN Routine Lab Work: - (CBC, BMP weekly) Code Status: Full Code Wound(s) L. elbow: Wound Type: Skin Tear Suggestions for Active Care Change Position every (hours): 2 Times a day to sit in chair: 3 Therapies Physical Therapy: Eval and Treat Occupational Therapy: Eval and Treat Speech Therapy: Eval and Treat Problem/Diagnosis (1) Urinary tract infection: Status: Acute (2) Encephalopathy: Status: Acute (3) Alcohol withdrawal: Status: Acute Allergies/Procedures Done in Hospital Allergies No Known Allergies Allergy (Verified 06/23/20 17:17) Procedures: None Type of Care/Length of Stay Estimated LOS: Convalescent Care Less Than 30 days Type of Care Needed: Skilled Rehab Potential: Fair Prognosis: Fair Additional Orders/Day of Discharge Additional Orders: Continue IV Rocephin 2 g with last dose 06/29/2020. Then transition to amoxicillin 500 mg every 8 hours for 7 days. H&P will serve as current which was dated: 06/23/20 Day of Discharge: 06/28/20 Dietary and Speech Recommendations Dietitian Recommendations/Changes: Continue Cardiac diet. Speech Linguistic Eval Summary: Pt alert and oriented to name, , and stated [facility] for location. Therapy had reported pt believed he was in [facility] minutes before. Reoriented to date, location, and reason for admission. Pt required repeated instruction to fully complete tasks. Would consider further cognitive-linguistic assessment in upcoming ST sessions. Discharge Plan Admission Admit Date/Time: 06/23/20 21:32 Attending Provider: Jimbo Doty Consulting Providers: Jarod Sawyer Discharge Orders/Prescriptions Prescriptions: New acetaminophen [Tylenol] 325 mg Tablet 650 mg PO Q6H PRN PRN (Reason: Headache/Fever (T>100f)) Qty: 0 RF: 0 amoxicillin 500 mg capsule 500 mg PO Q8H Qty: 21 RF: 0 Continued losartan 50 mg Tablet 100 mg PO DAILY RF: 0 venlafaxine 75 mg Capsule,Extended Release 24hr 75 mg PO DAILY RF: 0 lorazepam 0.5 mg Tablet 0.5 mg PO Q6H PRN (Reason: Anxiety) RF: 0 nifedipine 90 mg Tablet Extended Release 24hr 90 mg PO DAILY RF: 0 aspirin 81 mg Tablet 81 mg PO DAILY RF: 0 folic acid DAILY RF: 0 Discontinued ibuprofen 200 mg Capsule 200 mg PO PRN (Reason: Pain) RF: 0 hydrochlorothiazide 12.5 mg Capsule 12.5 mg PO BID RF: 0 Referrals / Follow Up: [facility] [Other] - In 1 Week [facility] [Other] Disposition Disposition (needs filled in before D/C Order can be placed): [facility] Facility
--- NOTE | 2020-06-28 14:44 | PCM.DC.SUM ---
Documented by User: Hannah Bronson NP, [facility] 06/28/20 14:50 Providers Date of Admission: 06/23/20 Primary Care Physician: WOLFGANG MALIN Consultations 06/27/20 10:16 Consult: Infectious Disease Routine Consulting Provider: Jarod Sawyer Reason for Consult: E.coli bacteremia, persistant fever EMERGENT Consult: No MD Notified: Yes Date Notified:: 06/28/20 Time Notified: 07:46 Method of Notification: Text Reason For Visit: UTI, ETOH WITHDRAWL Diagnosis Discharge Diagnosis (1) Urinary tract infection: Status: Acute Code(s): N39.0 - Urinary tract infection, site not specified Qualifiers: Hematuria presence: with hematuria Urinary tract infection type: site unspecified Qualified Code(s): N39.0 - Urinary tract infection, site not specified; R31.9 - Hematuria, unspecified (2) Encephalopathy: Status: Acute Code(s): G93.40 - Encephalopathy, unspecified (3) Alcohol withdrawal: Status: Acute Code(s): F10.239 - Alcohol dependence with withdrawal, unspecified Qualifiers: Complication of substance-induced condition: with delirium Qualified Code(s): F10.231 - Alcohol dependence with withdrawal delirium Medications at Discharge Home Medications aspirin 81 mg PO DAILY 06/26/20 folic acid DAILY 06/26/20 lorazepam 0.5 mg PO Q6H PRN 06/26/20 losartan 100 mg PO DAILY 06/26/20 nifedipine 90 mg PO DAILY 06/26/20 venlafaxine 75 mg PO DAILY 06/26/20 acetaminophen [Tylenol] 650 mg PO Q6H PRN PRN #0 tab 06/28/20 amoxicillin 500 mg PO Q8H #21 cap 06/28/20 Hospital Course Operations None Procedures None Summary of Care Provided Minutes Spent on Discharge: 35 Hospital Course: Patient is a 70-year-old male admitted 06/23/2020 due to altered mental status and fall. 1. Acute metabolic encephalopathy, secondary to acute UTI with bacteremia and alcohol withdrawal-treat underlying processes as noted below. Improved. Alert and oriented at discharge. 2. Acute E. coli UTI with associated E. coli bacteremia-IV Rocephin during admission, continue IV Rocephin with last dose 06/29/2020. Urine culture growing E. coli, pansensitive. Blood cultures 2 out of 2 growing GNR/E. coli. Repeat blood cultures pending. Fever improved. ID consulted. Plan to continue IV Rocephin through 06/29/2020 then transition to amoxicillin 5 mg every 8 hours for 7 days. Covid PCR negative. 3. Alcohol withdrawal-medical stabilization per protocol. CIWA protocol. Stable, no evidence of active withdrawal symptoms. 4. Hypokalemia-resolved. 5. Anxiety-continue as needed regimen. 6. Hypertension- stable, resumed previously prescribed losartan and nifedipine. Physical Exam Const alert, oriented x3 and no apparent distress Orientation / Consciousness: awake, oriented to person, oriented to place and oriented to time HEENT normocephalic and moist oral mucous membranes Eyes PERRL, EOMs intact bilaterally and conjunctivae normal Neck no lymphadenopathy Resp normal respiratory effort and clear to auscultation bilaterally Cardio regular rate, regular rhythm and no murmurs Peripheral Pulses: pulses 2+ throughout GI normal to inspection, nondistended, normoactive bowel sounds, non-tender and non-distended Extremity normal to inspection Skin no rashes or lesions noted Lesions: no lesions Rashes: no rashes Trauma: no lacerations or abrasions Neuro oriented x3 Sensorium / Orientation: awake and alert Psych affect normal Patient seen and examined prior to discharge. Physical assessment as noted above. Patient is stable for discharge with follow up recommendations as noted above. This patient was seen by CHELSI Abarca under the supervision of Dr. Doty. ABG / Lab / Microbiology Data Result Diagrams: 06/28/20 05:32 06/27/20 05:57 Laboratory: Laboratory Results - last 24 hr 06/28/20 06/28/20 05:32 10:20 WBC 15.6 H RBC 3.18 L Hgb 10.1 L Hct 31.1 L MCV 97.8 H MCH 31.8 MCHC 32.5 D RDW Std Deviation 51.7 H RDW Coeff of Lou 14.2 Plt Count 323 MPV 11.0 Immature Gran % (Auto) 1.500 H Neut % (Auto) 87.6 H Lymph % (Auto) 5.3 L [place] % (Auto) 5.1 Eos % (Auto) 0.3 Baso % (Auto) 0.2 Absolute Neuts (auto) 13.6 H Absolute Lymphs (auto) 0.82 L Nucleated RBC % 0 COVID-19 (NADINE) Negative Microbiology: Microbiology 06/23/20 17:55 Blood Culture (Wb) - Anticubital Right Blood Culture - Final Escherichia coli 06/23/20 18:00 Blood Culture (Wb) - Anticubital Left Blood Culture - Final GNR lactose 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 coli Meaningful Use Info Meaningful Use Diagnoses (Choose all that apply): None applicable Discharge Plan Admission Admit Date/Time: 06/23/20 21:32 Attending Provider: Jimbo Doty Consulting Providers: Jarod Sawyer Discharge Orders/Prescriptions Prescriptions: New acetaminophen [Tylenol] 325 mg Tablet 650 mg PO Q6H PRN PRN (Reason: Headache/Fever (T>100f)) Qty: 0 RF: 0 amoxicillin 500 mg capsule 500 mg PO Q8H Qty: 21 RF: 0 Continued losartan 50 mg Tablet 100 mg PO DAILY RF: 0 venlafaxine 75 mg Capsule,Extended Release 24hr 75 mg PO DAILY RF: 0 lorazepam 0.5 mg Tablet 0.5 mg PO Q6H PRN (Reason: Anxiety) RF: 0 nifedipine 90 mg Tablet Extended Release 24hr 90 mg PO DAILY RF: 0 aspirin 81 mg Tablet 81 mg PO DAILY RF: 0 folic acid DAILY RF: 0 Discontinued ibuprofen 200 mg Capsule 200 mg PO PRN (Reason: Pain) RF: 0 hydrochlorothiazide 12.5 mg Capsule 12.5 mg PO BID RF: 0 Referrals / Follow Up: WOLFGANG MALIN [Other] - In 1 Week WOLFGANG MALIN [Other] Disposition Disposition (needs filled in before D/C Order can be placed): [facility] Facility Documented by User: Dr. Jimbo Doty DO 06/28/20 16:00 Providers Date of Admission: 06/23/20 Reason For Visit: UTI, ETOH WITHDRAWL Medications at Discharge Home Medications aspirin 81 mg PO DAILY 06/26/20 folic acid DAILY 06/26/20 lorazepam 0.5 mg PO Q6H PRN 06/26/20 losartan 100 mg PO DAILY 06/26/20 nifedipine 90 mg PO DAILY 06/26/20 venlafaxine 75 mg PO DAILY 06/26/20 acetaminophen [Tylenol] 650 mg PO Q6H PRN PRN #0 tab 06/28/20 amoxicillin 500 mg PO Q8H #21 cap 06/28/20 Hospital Course Summary of Care Provided Minutes Spent on Discharge: 32 Hospital Course: Presents with change in mental status. Patient is heavy drinker and. Patient had acute infectious and metabolic cephalopathy. Patient was found to have acute alcohol withdrawal and urinary tract infection and gram-negative bacteremia. Cultures for both were E. coli. Patient will continue with IV ceftriaxone through 511. And then transition over to amoxicillin 5 mg every 8 hours for 7 days. Physical Exam Const alert General Appearance: cooperative and comfortable Resp normal respiratory effort and clear to auscultation bilaterally Cardio regular rate, regular rhythm, S1 normal heart sound and S2 normal heart sound GI normal to inspection, nondistended, normoactive bowel sounds, non-tender and non-distended ABG / Lab / Microbiology Data Result Diagrams: 06/28/20 05:32 06/27/20 05:57 Discharge Plan Admission Admit Date/Time: 06/23/20 21:32 Attending Provider: Jimbo Doty Consulting Providers: Jarod Sawyer Discharge Orders/Prescriptions Prescriptions: New acetaminophen [Tylenol] 325 mg Tablet 650 mg PO Q6H PRN PRN (Reason: Headache/Fever (T>100f)) Qty: 0 RF: 0 amoxicillin 500 mg capsule 500 mg PO Q8H Qty: 21 RF: 0 Continued losartan 50 mg Tablet 100 mg PO DAILY RF: 0 venlafaxine 75 mg Capsule,Extended Release 24hr 75 mg PO DAILY RF: 0 lorazepam 0.5 mg Tablet 0.5 mg PO Q6H PRN (Reason: Anxiety) RF: 0 nifedipine 90 mg Tablet Extended Release 24hr 90 mg PO DAILY RF: 0 aspirin 81 mg Tablet 81 mg PO DAILY RF: 0 folic acid DAILY RF: 0 Discontinued ibuprofen 200 mg Capsule 200 mg PO PRN (Reason: Pain) RF: 0 hydrochlorothiazide 12.5 mg Capsule 12.5 mg PO BID RF: 0 Referrals / Follow Up: WOLFGANG MALIN [Other] - In 1 WOLFGANG Maza [Other] Disposition Disposition (needs filled in before D/C Order can be placed): [facility] Facility Visit Charges Inpatient E&M: 42341 Disch Hosp
--- NOTE | 2020-06-28 15:06 | PHA.DC.MR ---
Pharmacy Service has performed discharge medication reconciliation for this patient. The patient's discharge medication list was reviewed for discrepancies and discrepancies were resolved. Home Medications aspirin 81 mg PO DAILY 06/26/20 folic acid DAILY 06/26/20 lorazepam 0.5 mg PO Q6H PRN 06/26/20 losartan 100 mg PO DAILY 06/26/20 nifedipine 90 mg PO DAILY 06/26/20 venlafaxine 75 mg PO DAILY 06/26/20 acetaminophen [Tylenol] 650 mg PO Q6H PRN PRN #0 tab 06/28/20 amoxicillin 500 mg PO Q8H #21 cap 06/28/20
--- NOTE | 2020-06-28 15:13 | CASEMGMT ---
ANDREA called patient's son and left him a voice mail letting him know patient is going to be discharged to TCU today. Plan: d/c to TCU under skilled level of care. Nazanin WATTERS
--- NOTE | 2020-06-28 20:08 | CON.PCM.ID_ITS ---
Assessment & Plan Assessment/Plan (1) Bacteremia due to Escherichia coli: PLAN: Fever likely due to bacteremia and possibly etoh withdrawal. Ok to narrow to ceftriaxone and complete 7 more days with po amoxicillin. Will follow as needed, thank you, d/w primary team (2) Encephalopathy: HPI Consult Data Date of Consult: 06/28/20 HPI Narrative HPI Narrative: OLLIE MEIER, is a 70 M who presented with fall and confusion. H/o heavy etoh use. Came to ED, admitted, started on ceftriaxone for uti. Bcx also (+), abx broadened to zosyn due to ongoing fever. Pt feeling ok, denies fever, is not interested in covid vaccine. Denies abd pain, n/v/d, dysuria. Does not have to strain to urinate. No blood in stool. Full ROS performed and neg except as noted above. [facility] Medical History Alcoholism ARF (acute respiratory failure) Hypertension Stridor Home Medications aspirin 81 mg PO DAILY 06/26/20 [History Last Taken Unknown] folic acid DAILY 06/26/20 [History Last Taken Unknown] lorazepam 0.5 mg PO Q6H PRN 06/26/20 [History Last Taken Unknown] losartan 100 mg PO DAILY 06/26/20 [History Last Taken Unknown] nifedipine 90 mg PO DAILY 06/26/20 [History Last Taken Unknown] venlafaxine 75 mg PO DAILY 06/26/20 [History Last Taken Unknown] acetaminophen [Tylenol] 650 mg PO Q6H PRN PRN #0 tab 06/28/20 [Rx Last Taken Unknown] amoxicillin 500 mg PO Q8H 06/28/20 [History Last Taken Unknown] Allergy/AdvReac Type Severity Reaction Status Date / Time No Known Allergies Allergy Verified 06/23/20 17:17 Social History household members: children Smoking Status: Former smoker alcohol intake: current alcohol intake frequency: 3 or more drinks per day Alcohol type: beer substance use type: does not use Physical Exam Const no apparent distress Constitutional Narrative: oriented x1, says he's in [place] at [facility] General Appearance: cooperative HEENT normocephalic and head/scalp atraumatic Eyes PERRL and EOMs intact bilaterally Neck supple and No nodes Resp clear to auscultation bilaterally Cardio regular rate and regular rhythm GI normal to inspection, nondistended, normoactive bowel sounds Extremity no clubbing, cyanosis or edema Skin no rashes or lesions noted Neuro CN's II-XII intact bilaterally Lab / Micro Data Result Diagrams: 06/28/20 05:32 06/27/20 05:57 Labs: Laboratory Results - last 24 hr 06/28/20 06/28/20 05:32 10:20 WBC 15.6 H RBC 3.18 L Hgb 10.1 L Hct 31.1 L MCV 97.8 H MCH 31.8 MCHC 32.5 D RDW Std Deviation 51.7 H RDW Coeff of Lou 14.2 Plt Count 323 MPV 11.0 Immature Gran % (Auto) 1.500 H Neut % (Auto) 87.6 H Lymph % (Auto) 5.3 L [place] % (Auto) 5.1 Eos % (Auto) 0.3 Baso % (Auto) 0.2 Absolute Neuts (auto) 13.6 H Absolute Lymphs (auto) 0.82 L Nucleated RBC % 0 COVID-19 (NADINE) Negative
== END 2020-06-28 17:47 | disposition skilled nursing facility (03) | DRG 896 ==
LOC: ED 19:30 → PCU 23:02
PROVIDERS: Nurse Practitioner Family; Admitting Provider Hospitalist; Emergency Provider Emergency Medicine
DX: F10.231 Alcohol dependence with withdrawal delirium (principal); G93.41 Metabolic encephalopathy; N39.0 Urinary tract infection, site not specified; B96.20 Unspecified Escherichia coli [E. coli] as the cause of diseases classified elsewhere; R31.9 Hematuria, unspecified; I10 Essential (primary) hypertension; E87.6 Hypokalemia; F41.9 Anxiety disorder, unspecified; M54.5 Low back pain; G89.29 Other chronic pain; Y90.0 Blood alcohol level of less than 20 mg/100 ml; Z79.899 Other long term (current) drug therapy; Z87.891 Personal history of nicotine dependence
CPT/HCPCS: 36415; 70450; 71045; 72100; 76705; 80048; 80053; 80307; 81001; 82077; 82550; 82552; 83605; 83735; 84484; 85025; 85027; 85610; 87040; 87077; 87086; 87088; 87186; 87635; 92523; 92526; 92610; 93005; 97110; 97162; 97166; 97530; 97535; 97802; 99285; J7030; A4216; J0696; J2405; J3490; U0002

== ENCOUNTER 2020-06-28 17:55 | Inpatient (IN) | payer MEDICARE, SELFPAY ==
[2020-06-28 18:10] VITALS: BP 99/68; PULSE 66; RESP 18; TEMP 36.9; O2SAT 92; BMI 30.2
--- NOTE | 2020-06-28 20:50 | HP.PCM_ITS ---
HPI - General General Date of Admission: 06/28/20 HPI Narrative 06/23/2020 OLLIE MEIER, is a 70 Male who presents to [facility] Emergency Department with fall. 06/23/2020 EKG showed normal sinus rhythm, prolonged QT. Fell out of bed, found on floor by son. Patient alcoholic, patient confused, patient recently of alcoholic cirrhosis. Weaned off alcohol, confusion had improved. Patient started drinking beer when son was away. X-ray LS spine negative. CT head negative. 06/23/2020 Admit to hospital for delirium secondary to alcohol withdrawal, urinary tract infection, hypokalemia, rhabdomyolysis. CIWA for alcohol withdrawal. Ceftriaxone for urinary tract infection. IV fluids for rhabdomyolysis. 06/28/2020 Delirium resolved. E. Coli urinary tract infection with E. Coli bacteremia. Infectious Disease recommended Ceftriaxone IV thru 06/29/2020, then A moxicillin Q8H x 7 days. Alcohol withdrawal stable. Hypokalemia resolved with repletion. Hypertension controlled with home medications. 06/28/2020 Admit to TCU with debility, here for rehabilitation, strengthening, prior to discharge home with son. [facility] Medical History Alcoholism ARF (acute respiratory failure) Hypertension Stridor Home Medications aspirin 81 mg PO DAILY 06/26/20 [History Last Taken Unknown] folic acid DAILY 06/26/20 [History Last Taken Unknown] lorazepam 0.5 mg PO Q6H PRN 06/26/20 [History Last Taken Unknown] losartan 100 mg PO DAILY 06/26/20 [History Last Taken Unknown] nifedipine 90 mg PO DAILY 06/26/20 [History Last Taken Unknown] venlafaxine 75 mg PO DAILY 06/26/20 [History Last Taken Unknown] acetaminophen [Tylenol] 650 mg PO Q6H PRN PRN #0 tab 06/28/20 [Rx Last Taken Unknown] amoxicillin 500 mg PO Q8H 06/28/20 [History Last Taken Unknown] Allergy/AdvReac Type Severity Reaction Status Date / Time No Known Allergies Allergy Verified 06/23/20 17:17 Social History household members: children Smoking Status: Former smoker alcohol intake: current alcohol intake frequency: 3 or more drinks per day Alcohol type: beer substance use type: does not use ROS Constitutional Constitutional: Denies chills, fever(s) or weight gain ENT HEENT: Denies headache(s), nasal congestion or nasal discharge Cardiovascular Cardiovascular: Denies chest pain or palpitations Respiratory/Chest Respiratory/Chest: Denies cough, excessive phlegm production or shortness of breath with exertion Gastrointestinal Gastrointestinal: Denies abdominal pain, nausea or vomiting Genitourinary Genitourinary: Denies dysuria Musculoskeletal Musculoskeletal: Denies joint pain or joint swelling Integumentary Integumentary: Denies rash or wounds Neurologic Neurologic: Denies focal weakness, numbness or tingling Psychiatric Psychiatric: Reports auditory hallucinations; Denies anxiety, depression, homicidal ideation or suicidal ideation Vital Signs Vital Signs Vital Signs: 06/28/20 18:10 Temperature 98.4 F Temperature Source Temporal Pulse Rate 66 Pulse Rhythm Irregular Pulse Strength Normal (2+) Respiratory Rate 18 Respiratory Effort Normal Non-Labored Respiratory Depth Normal Respiratory Pattern Normal Blood Pressure 99/68 Blood Pressure Mean 78 Blood Pressure Source Monitor Blood Pressure Position Sitting Blood Pressure Location Right Arm Pulse Ox 92 Oxygen Delivery Method Room Air Physical Exam Const alert and oriented x3 General Appearance: cooperative HEENT normocephalic Eyes PERRL and EOMs intact bilaterally Neck supple, no JVD and no carotid bruits Resp normal respiratory effort, normal air movement and clear to auscultation bilaterally Cardio regular rate and regular rhythm GI normal to inspection, nondistended, normoactive bowel sounds, non-tender and non-distended Extremity normal capillary refill General Extremity: Negative for edema Skin no rashes or lesions noted General Skin Exam: no breakdown Psych affect normal Appearance: appropriate Lab / Micro Data Result Diagrams: 06/29/20 05:27 06/29/20 05:27 Assessment & Plan Assessment/Plan (1) Debility: (2) Encephalopathy: (3) Urinary tract infection: QUALIFIERS: Hematuria presence: with hematuria Urinary tract infection type: site unspecified Qualified Code(s): N39.0 - Urinary tract infection, site not specified; R31.9 - Hematuria, unspecified (4) Bacteremia due to Escherichia coli: (5) Alcohol withdrawal: QUALIFIERS: Complication of substance-induced condition: with delirium Qualified Code(s): F10.231 - Alcohol dependence with withdrawal delirium (6) Hypokalemia: (7) Hypertension: QUALIFIERS: Hypertension type: essential hypertension Qualified Code(s): I10 - Essential (primary) hypertension (8) Rhabdomyolysis: (9) Alcohol abuse: (10) Hypertension: PLAN: 70 year old male with below past medical history hospitalized for encephalopathy secondary to E. Coli urinary tract infection/bacteremia, complicated by alcohol withdrawal, hypokalemia, rhabdomyolysis, admitted to TCU with debility, here for rehabilitation, strengthening, prior to discharge home with son. * Debility - PT/OT. * Pain - Tylenol 1000MG Q6H PRN pain (1-10). * Bowel - Miralax 17GM daily, Senna/colace 1 tablet BID, Dulcolax 10MG MN daily PRN. * Adult immunization - Administer Prevnar 13, Pneumovax 23, Fluzone, COVID19 vaccine as appropriate. * DVT prophylaxis - Hold, progressive anemia. * E. Coli UTI/Bacteremia - Ceftriaxone 2GM IV Q24H thru 06/29/2020, then Amoxillin 500MG Q8H thru 07/07/2020. * CV prophylaxis - Aspirin 81MG daily. * Nutrition - Ensure Enlive 120ML 4x/day. * Alcohol withdrawal - Ativan 0.5MG Q6H PRN, consider GDR if resident doing well. * Hypertension - Losartan 100MG daily, Nifedipine 90MG daily. * Depression - Venlafaxine 75MG daily, stable chronic lobsterman use, GDR not recommended. * Iron deficiency anemia - Ferrex 150MG daily.
[2020-06-29] MEDS: LORazepam 0.5 MG Tablet PO ×3 (02:13→18:16)
[2020-06-29 06:01] LABS: Absolute Lymphocyte Count 1.04 X10^3/uL (0.83-4.51); Basophil# 0.05 X10^3/uL; Basophil% 0.3 % (0-1); Eosinophil# 0.06 X10^3/uL; Eosinophils% 0.4 % (0-5); Hematocrit 32.8 % (40-54); Hemoglobin 10.9 g/dL (13.0-16.5); Lymphocyte # 1.04 X10^3/ul (0.83-4.51); Lymphocyte % 6.8 % (19-41); Mean Corp Hgb Conc 33.2 g/dL (32-36); Mean Corpuscular Hgb 32.4 pg (27.0-32.0); Mean Corpuscular Volume 97.6 fL (80-94); Mean Platelet Vol. 10.9 fl (6.2-12.0); Monocyte# 0.89 X10^3/uL; Monocyte% 5.8 % (0-10); NRBC Flagged by Analyzer 0 % (0-5); Neutrophil # 13.03 X10^3/uL (2.7-7.7); Neutrophil % 85.5 % (47-70); Platelet Count 431 K/mm3 (150-450); RBC Distribution Width CV 14.1 % (11.6-14.6); Red Blood Count 3.36 M/mm3 (4.6-6.2); White Blood Count 15.3 K/mm3 (4.4-11.0)
[2020-06-29 06:11] VITALS: BP 111/84; PULSE 92; RESP 20; TEMP 36.9; O2SAT 95
[2020-06-29] MEDS: Losartan Potassium 100 MG Tablet PO (06:13)
[2020-06-29] MEDS: Venlafaxine XR 75 MG Capsule PO (06:14)
[2020-06-29] MEDS: Enoxaparin 40 MG/0.4 ML Syringe SC (06:14)
[2020-06-29] MEDS: Polyethylene Glycol 3350 17 GM PACKET PO (06:15)
[2020-06-29] MEDS: NIFEdipine 90 MG Tablet PO (06:15)
[2020-06-29] MEDS: Senna/Docusate Sodium 1 Tablet PO (06:15)
[2020-06-29] MEDS: Acetaminophen 500 MG Tablet 1000 MG PO ×2 (06:25→12:50)
[2020-06-29 06:28] LABS: Anion Gap 4 (5-15); BUN 10 mg/dL (7-18); BUN/Creat Ratio 14.7 RATIO (10-20); Calcium,Total 8.3 mg/dL (8.5-10.1); Chloride 103 mmol/L (98-107); Creatinine, Serum 0.68 mg/dL (0.70-1.30); EST Glomerular Filtration Rate 123 mL/min (>60); Est Glom Filt Rate - Afr Amer 148 mL/min (>60); Estimated Creatinine Clearance 76.57 ml/min; Glucose 101 mg/dL (74-106); Potassium 3.6 mmol/L (3.5-5.1); Sodium Level 133 mmol/L (136-145)
[2020-06-29] MEDS: Aspirin 81 MG TAB.CHEW PO (08:49)
[2020-06-29] MEDS: 0.9% Saline Lock 10 ML Syringe IV (10:27)
[2020-06-29] MEDS: Tuberculin,Purif.prot.deriv. 50 TU/ML Vial 5 ML ID (11:50)
--- NOTE | 2020-06-29 12:01 | NURSING ---
Addendum entered by Margoth Shin 06/29/20 12:21: NOTIFIED DR ALBA. FERREX DC'D AND CHANGED TO FERROUS SULFATE. ALSO, R' REPORTING BACK PAIN DESCRIBING SPASMS/LIKE A PINCHED NERVE. DR. ALBA ORDERED BACLOFEN 10MG TID PRN. Original Note: UNABLE TO CRUSH/SPLIT FERREX. CALLED PHARMACY TO SEND LIQUID FORM. STATED MED NEEDS CHANGED TO A FERROUS SULFATE LIQUID FORM. WILL UPDATE DR. ALBA.
[2020-06-29 12:24] VITALS: BP 106/69; PULSE 94; RESP 20; TEMP 36.3; O2SAT 93
[2020-06-29] MEDS: Baclofen 10 MG Tablet PO (12:50)
--- NOTE | 2020-06-29 14:17 | NURSING ---
R' UP SELF TRANSFERRING IN HALLWAY. BED ALARM SOUNDING. R' UNSTEADY. ASSISTED BACK TO ROOM TO RESTROOM WITH THIS NURSE AND PIG MACHINE OPERATOR. R' INCONTINENT. USED TOILET AND HAD LG BM. CLOTHES CHANGED AND PLACED IN GOWN. BED ALARM AND CHAIR ALARM IN PLACE. THERAPY CURRENTLY IN ROOM. WILL MONITOR. HE STATES BACK PAIN HAS IMPROVED SINCE BACLOFEN GIVEN.
[2020-06-29 14:43] VITALS: BP 122/72; PULSE 99; RESP 16; TEMP 36.8; O2SAT 95
--- NOTE | 2020-06-29 15:44 | PHA.CONS_ITS ---
Progress Note - Pharmacy Subjective: TCU ADMISSION Objective: Allergies No Known Allergies Allergy (Verified 06/23/20 17:17) Current Medications Generic Name Dose Route Start Last Admin Trade Name Freq PRN Reason Stop Dose Admin Acetaminophen 1,000 mg 06/28/20 21:05 06/29/20 12:50 Acetaminophen 500 Mg Tablet PO 1,000 mg Q6H PRN PRN Administration Pain Score 1-10 Amoxicillin 500 mg 06/30/20 06:00 Amoxicillin 500 Mg Capsule PO 07/07/20 06:01 Q8H LAICJA Aspirin 81 mg 06/29/20 08:00 06/29/20 08:49 Aspirin 81 Mg Tab.Chew PO 81 mg DAILY@0800 [facility] Administration Baclofen 10 mg 06/29/20 12:18 06/29/20 12:50 Baclofen 10 Mg Tablet PO 10 mg TID PRN PRN Administration SPASMS Bisacodyl 10 mg 06/28/20 18:34 Bisacodyl 10 Mg Suppository RC DAILY PRN CONSTIPATION Ferrous Sulfate 300 mg 06/30/20 08:00 Ferrous Sulfate 300 Mg/5 Ml Udc PO DAILY@0800 [facility] Folic Acid 1 mg 06/30/20 08:00 Folic Acid 1 Mg Tablet PO DAILY@0800 [facility] Ceftriaxone Sodium 2 gm/ 50 mls @ 100 mls/hr 06/29/20 10:00 06/29/20 11:11 Sodium Chloride IV 06/29/20 23:00 Infused Q24 [facility] Infusion Sodium Chloride 500 mls @ 15 mls/hr 06/29/20 09:31 IV PRN PRN SALINE FLUSH Lorazepam 0.5 mg 06/28/20 18:26 06/29/20 11:50 Lorazepam 0.5 Mg Tablet PO 0.5 mg Q6H PRN Administration ANXIETY Losartan Potassium 100 mg 06/29/20 06:00 06/29/20 06:13 Losartan Potassium 100 Mg Tablet PO 100 mg DAILY [facility] Administration Nifedipine 90 mg 06/29/20 06:00 06/29/20 06:15 Nifedipine 90 Mg Tablet PO 90 mg DAILY [facility] Administration Nutritional Formula (Lactose Free) 120 ml 06/28/20 22:00 06/29/20 11:55 Ensure Enlive 120 Ml Liquid PO Not Given 4X/DAY [facility] Polyethylene Glycol 17 gm 06/29/20 06:00 06/29/20 06:15 Polyethylene Glycol 3350 17 Gm Packet PO 17 gm DAILY ALICJA Administration Senna/Docusate Sodium 1 tablet 06/29/20 06:00 06/29/20 06:15 Senna/Docusate Sodium 1 Tablet PO 1 tablet BID ALICJA Administration Sodium Chloride 10 - 40 ml 06/28/20 20:57 06/29/20 10:27 0.9% Saline Lock 10 Ml Syringe IV 20 ml UD PRN Administration SALINE FLUSH Tuberculin PPD 5 tu 07/06/20 10:00 Tuberculin,Purif.Prot.Deriv. 50 Tu/Ml Vial ID 07/06/20 10:01 X1 ONE Venlafaxine HCl 75 mg 06/29/20 06:00 06/29/20 06:14 Venlafaxine Xr 75 Mg Capsule PO 75 mg DAILY ALICJA Administration Problem List (Last Reviewed 06/28/20 @ 20:[address] Cornel Finley MD) Hypertension (Chronic) Alcohol abuse (Acute) Rhabdomyolysis (Acute) Debility (Acute) Bacteremia due to Escherichia coli (Acute) Encephalopathy (Acute) Urinary tract infection (Acute) Alcohol withdrawal (Acute) Hypokalemia (Acute) Hypertension (Chronic) Vital Signs Temp Pulse Resp BP Pulse Ox 98.3 F 99 16 122/72 H 95 06/29/20 14:43 06/29/20 14:43 06/29/20 14:43 06/29/20 14:43 06/29/20 14:43 Oxygen Delivery Method Room Air Weight: 100.698 kg Body Mass Index (BMI) 30.2 Sodium 133 mmol/L (136-145) L 06/29/20 05:27 Potassium 3.6 mmol/L (3.5-5.1) 06/29/20 05:27 Chloride 103 mmol/L (98-107) 06/29/20 05:27 Carbon Dioxide 26.0 mmol/L (21.0-32.0) 06/29/20 05:27 Anion Gap 4 (5-15) L 06/29/20 05:27 BUN 10 mg/dL (7-18) 06/29/20 05:27 Creatinine 0.68 mg/dL (0.70-1.30) L 06/29/20 05:27 Est GFR (MDRD) Af Amer 148 mL/min (>60) 06/29/20 05:27 Est GFR (MDRD) Non-Af 123 mL/min (>60) 06/29/20 05:27 BUN/Creatinine Ratio 14.7 RATIO (10-20) 06/29/20 05:27 Glucose 101 mg/dL (74-106) 06/29/20 05:27 Assessment/Plan: 1. Pain: Tylenol 1000mg Q6H PRN pain (1-10). Please continue to monitor pain and PRN usage. 2. E. Coli UTI/Bacteremia: ceftriaxone 2GM IV Q24H thru 06/29/2020, then amoxicillin 500mg PO Q8H thru 07/07/2020. Please continue to monitor infection improvement, renal function, and GI symptoms. 3. CV prophylaxis: aspirin 81mg PO daily. Please continue to monitor S/S of bleeding. 4. Hypertension: losartan 100mg PO daily, nifedipine 90mg PO daily. Please continue to monitor BP (last 106/69), HR (last 94). 5. Iron deficiency anemia: Ferrex 300mg PO daily. Please continue to monitor H/H and iron studies as clinically appropriate. 6. Muscle Spasm: Balcofen 10mg PO TID PRN muscle spasm. Please continue to monitor PRN medication usage, medication effectiveness. 7. General Wellness: Folic acid 1mg PO daily. Please continue to monitor Psychotropic Medications: 8. Alcohol withdrawal: Ativan 0.5mg Q6H PO PRN anxiety. Please continue to monitor respiratory depression, BP (last 106/69), HR (last 94), and S/S alcohol withdrawal. Please see physician note regarding GDR. 9. Depression: venlafaxine 75mg PO daily. Please continue to monitor renal function and S/S of depression. See physician note regarding GDR. Unnecessary Medications: None Bowel Regimen: Miralax 17GM PO daily, Senna/docusate 1 tablet PO BID, Dulcolax 10MG NC daily PRN constipation. Please continue to monitor constipation and PRN usage. Date of Note:: 06/29/20
[2020-06-29] MEDS: Ferrous Sulfate 300 MG/5 ML UDC PO (15:50)
--- NOTE | 2020-06-29 16:48 | CASEMGMT ---
Social Work Met with patient for initial assessment. Discussed code status. Pt confirmed full code. MOLST form reviewed, communication to , placed in chart. Explained Medicare benefit. Pt does not have secondary insurance. Explained beginning day 21 copay of $186/day. Pt states he cannot afford that. IDT goal to DC safely by that time. SW to assist with DC plans. The goal is for pt to return home. Son moved in and assisting with ADLs and IADLs. Discussed alcohol use and from alcoholism about a year ago. Although pt reports to drinking prior to passing, he does feel sad and why he keeps drinking. Discussed antidepressant - pt agreeable. Notified DrLuigi Discussed alcohol counseling - pt denied. Pt would like to remain sober at DC. SW to continue to follow for support at DC plans. YOANNA EstradaW
--- NOTE | 2020-06-29 17:53 | NURSING ---
ASSISTED R' INTO R/C TO SIT UP AND EAT DINNER. NEEDS A LOT OF ENCOURAGEMENT FOR PO INTAKE. EATING AT THIS TIME. WILL CONT' TO ENCOURAGE.
--- NOTE | 2020-06-29 18:18 | NURSING ---
Addendum entered by Margoth Shin 06/29/20 18:25: ASSISTED BACK TO CHAIR PER REQUEST. EDUCATED R' REGARDING CALL LIGHT AND NEEDING ASSISTANCE WITH TRANSFERS. CALL LIGHT WITHIN REACH. LEGS ELEVATED IN R/C. WATCHING TV AT THIS TIME. Original Note: CHAIR ALARM SOUNDING. R' SELF TRANSFERRING IN ROOM, HEADING TO HALLWAY LOOKING FOR BED. R' ANXIOUS AND CONFUSED. SAT IN CHAIR X2 ASSIST. ATIVAN GIVEN AT THIS TIME. DENIES PAIN AT THIS TIME TO BACK. WILL ASSIST BACK TO BED. ALARM IN PLACE.
--- NOTE | 2020-06-29 19:02 | RAD_ITS ---
STUDY: X-RAY - ABDOMEN/PELVIS REASON FOR EXAM: Male, 70 years old. Constipation TECHNIQUE: Single AP view of the abdomen / pelvis. COMPARISON: 06/25/2019 FINDINGS: Normal visualized lung bases. There is an unremarkable bowel gas pattern. There is no demonstrated free abdominal air. Moderate stool burden. Normal soft tissue structures. Normal visualized osseous structures. RAD/Abdomen Single View IMPRESSION: Normal x-ray examination of the abdomen and pelvis. Electronically Signed: Donaldo Ureña MD at 20:45 EDT Tel , Service support ,
--- NOTE | 2020-06-29 19:37 | NURSING ---
Pt Chair alarm was going off rushed to pt's room to find pt on the floor on knees leaning against the bed. Assisted x3 to Chair. Vital Signs BP 119/65 HR 114 RR 20 SpO2 99% RA. Pt denied pain at this time. Had a small skin tear to inner right ankle. Called Underwear Welter and Dr. Finley and updated. New order entered to increase Ativan to 1mg okay to give now and KUB. Pt is very anxious and previous dose of Ativan ineffective. Will Continue to monitor pt.
[2020-06-29 19:42] VITALS: BP 119/65; PULSE 114; RESP 20; O2SAT 99
--- NOTE | 2020-06-29 20:20 | NURSING ---
Called and spoke with Patient's Son Saul, updated on fall and patient status. Answered all questions, he said he'd like an update again tomorrow.
[2020-06-29 22:10] VITALS: PULSE 104; RESP 18; O2SAT 96
[2020-06-29] MEDS: LORazepam 1 MG Tablet PO (22:24)
[2020-06-29] MEDS: Mirtazapine 15 MG Tablet 7.5 MG PO (22:25)
[2020-06-30 06:26] VITALS: BP 144/93; PULSE 99; RESP 20; TEMP 36.9; O2SAT 97
[2020-06-30] MEDS: AMOXICILLIN 500 MG CAPSULE PO ×3 (06:28→23:37)
[2020-06-30] MEDS: Losartan Potassium 100 MG Tablet PO (06:29)
[2020-06-30] MEDS: NIFEdipine 90 MG Tablet PO (06:29)
[2020-06-30] MEDS: Venlafaxine XR 75 MG Capsule PO (06:29)
[2020-06-30] MEDS: Senna/Docusate Sodium 1 Tablet PO ×2 (06:29→17:07)
[2020-06-30] MEDS: Polyethylene Glycol 3350 17 GM PACKET PO (06:30)
[2020-06-30] MEDS: Folic Acid 1 MG Tablet PO (08:26)
[2020-06-30] MEDS: Aspirin 81 MG TAB.CHEW PO (08:26)
[2020-06-30 10:00] VITALS: PULSE 98; RESP 18
[2020-06-30] MEDS: Ferrous Sulfate 300 MG/5 ML UDC PO (10:28)
[2020-06-30 17:00] VITALS: BP 107/74; PULSE 75; RESP 16; TEMP 36.7; O2SAT 96
[2020-06-30] MEDS: Mirtazapine 15 MG Tablet 7.5 MG PO (23:38)
[2020-07-01] MEDS: AMOXICILLIN 500 MG CAPSULE PO ×3 (05:23→20:39)
[2020-07-01] MEDS: Menthol/Lanolin/Calamine/Znox 113 GM Tube 1 APPLIC TOPICAL ×2 (05:24→16:17)
[2020-07-01] MEDS: Polyethylene Glycol 3350 17 GM PACKET PO (05:24)
[2020-07-01] MEDS: Nystatin Powder 15gm Bottle 1 APPLIC TOPICAL ×2 (05:24→16:17)
[2020-07-01] MEDS: Venlafaxine XR 75 MG Capsule PO (05:24)
[2020-07-01] MEDS: Losartan Potassium 100 MG Tablet PO (05:24)
[2020-07-01] MEDS: NIFEdipine 90 MG Tablet PO (05:25)
[2020-07-01] MEDS: Senna/Docusate Sodium 1 Tablet PO (05:25)
[2020-07-01 06:05] VITALS: BP 149/92; PULSE 100; RESP 14; TEMP 36.8
[2020-07-01] MEDS: Aspirin 81 MG TAB.CHEW PO (09:01)
[2020-07-01] MEDS: Ferrous Sulfate 300 MG/5 ML UDC PO (09:01)
[2020-07-01] MEDS: Folic Acid 1 MG Tablet PO (09:01)
--- NOTE | 2020-07-01 11:14 | ST.MBS ---
Modified Barium Swallow - Patient Information Study Date: 07/01/20 Study Time: 10:00 Direct Billable Minutes: 120 Total Minutes procedure & reportin Diagnosis: oropharyngeal dysphagia (R13.12) Referring Physician: Cornel Finley Chi Reason for Referral: To objectively assess swallow function under fluoroscopy and determine presence or aspiration. Medical History: OLLIE MEIER, is a 70 M who presented to [facility] ED with altered mental status and fall. PMHX includes alcoholism, HTN, acute respiratory failure, and stridor. Upon evaluation in ED patient was found to have a significant urinary tract infection with an elevated white blood cell count of 18.8. ST was consulted due to increased difficulty swallowing. Current Diet Ordered: puree textures/nectar thick liquids Dentition: Upper Dentures, Lower Dentures Respiratory Status: Oxygenating on Room Air - Study Findings Consistencies: Thin Liquid, [place] Thick Liquid, Honey Thick Liquid, Pudding, Cookie - Penetration-Aspiration Scale Penetration-Aspiration Scale: OBJECTIVE ASSESSMENT OF SWALLOW FUNCTION (QUANTITATIVE ? PER TRIAL): PENETRATION / ASPIRATION SCALE (PITTMAN): 1 = does not enter airway 2 = enters airway/above vocal folds/ejected 3 = enters airway/above vocal folds/not ejected 4 = enters airway/contacts vocal folds/ejected 5 = enters airway/contacts vocal folds/not ejected 6 = enters airway/below vocal folds/ejected 7 = enters airway/below vocal folds/not ejected despite effort 8 = enters airway/below vocal folds/no effort - Penetration-Aspiration Scale Score Thin Liquid via teaspoon Result: 2= enter airway/above vocal folds/ejected Thin Liquid via teaspoon Trial 2 Result: 1= does not enter airway Thin Liquid via small single sip from cup Result: 2= enter airway/above vocal folds/ejected Thin Liquid via large single sip from cup Result: 2= enter airway/above vocal folds/ejected Thin Liquid via sequential sips from cup Result: 2= enter airway/above vocal folds/ejected [place] Thick Liquid via large single sip from cup Result: 2= enter airway/above vocal folds/ejected Honey Thick Liquid via large single sip from cup Result: 1= does not enter airway Pudding via teaspoon Result: 1= does not enter airway Cookie Result: 1= does not enter airway Thin Liquid via sequential sips from straw Result: 2= enter airway/above vocal folds/ejected - Oral Phase Labial Seal: No Labial Escape Tongue Control During Bolus Hold: Posterior escape of less than half of bolus Bolus Preparation/Mastication: Disorganized chewing/mashing with solid pieces of bolus unchewed Bolus Transport/Lingual Motion: Brisk tongue motion Oral Residue: Trace residue lining oral structures - Pharyngeal Phase Initiation of Pharyngeal Swallow: Bolus head in valleculae Soft Palate Elevation: No bolus between soft palate and pharyngeal wall Laryngeal Elevation: Partial superior movement thyroid cart/partial apprx aryt-epig petiole Anterior Hyoid Excursion: Partial anterior movement Laryngeal Vestibule Closure at Height of Swallow: Incomplete; narrow column of air/contrast in laryngeal vestibule Pharyngoesophageal Segment Opening: Parital distension and partial duration; parital obstruction of flow Tongue Base Retraction: Narrow column of contrast between tongue base & post. pharyngeal wall Pharyngeal Residue: Collection of residue within or on pharyngeal structures - Diagnosis/Impression Diagnosis: mild-moderate oropharyngeal dysphagia (R13.12) Impression: Oral phase characterized by disorganized mastication of solid Laura Doone shortbread cookie with mild oral residue. Pharyngeal phase characterized by suboptimal swallow onset timing resulting in penetration of thin and nectar thick liquids above the vocal cords with ejection. Decreased anterior hyoid excursion and partial epiglottic inversion present also complicating flow and function of patients swallow and increasing pharyngeal residue. No aspiration found at this date and time. - Recommendations Diet: Puree Textures, Thin Liquids Compensatory Strategies: Small Bites, Small Sips, Slow Rate, Alternate bites/solids and sips/liquids, Sitting upright, Remain sitting upright for 30 minutes after PO intake Supervision: 1:1 Close Supervision Recommend Repeat Modified Barium Swallow: TBD Need for Skilled Speech Therapy Services: Yes - 3-5x/week Education Completed: 1. Described result of evaluation. - Status Active ST Patient: Active - Contact Information [facility] Speech Therapy:: Isabella Peres MA, [facility]-ANATOMY TEACHER [place] [phone] [email or web address]
[2020-07-01] MEDS: Acetaminophen 500 MG Tablet 1000 MG PO (13:58)
[2020-07-01 14:25] VITALS: BP 113/68; PULSE 89; RESP 24; TEMP 36.9; O2SAT 96
[2020-07-01] MEDS: Baclofen 10 MG Tablet PO (16:17)
[2020-07-01 16:23] VITALS: BP 104/71; PULSE 81
[2020-07-01] MEDS: Mirtazapine 15 MG Tablet 7.5 MG PO (20:40)
[2020-07-01 23:00] VITALS: PULSE 70; RESP 14; O2SAT 96
[2020-07-02] MEDS: Losartan Potassium 100 MG Tablet PO (05:52)
[2020-07-02] MEDS: Menthol/Lanolin/Calamine/Znox 113 GM Tube 1 APPLIC TOPICAL ×2 (05:52→16:20)
[2020-07-02] MEDS: Polyethylene Glycol 3350 17 GM PACKET PO (05:52)
[2020-07-02] MEDS: Venlafaxine XR 75 MG Capsule PO (05:52)
[2020-07-02] MEDS: AMOXICILLIN 500 MG CAPSULE PO ×3 (05:52→21:53)
[2020-07-02] MEDS: Nystatin Powder 15gm Bottle 1 APPLIC TOPICAL ×2 (05:53→16:27)
[2020-07-02] MEDS: Senna/Docusate Sodium 1 Tablet PO ×2 (05:54→16:20)
[2020-07-02] MEDS: NIFEdipine 90 MG Tablet PO (05:54)
[2020-07-02 07:00] VITALS: BP 135/81; PULSE 95; RESP 14; TEMP 37.3
[2020-07-02] MEDS: Aspirin 81 MG TAB.CHEW PO (08:15)
[2020-07-02] MEDS: Ferrous Sulfate 300 MG/5 ML UDC PO (08:15)
[2020-07-02] MEDS: Folic Acid 1 MG Tablet PO (08:15)
[2020-07-02] MEDS: Acetaminophen 500 MG Tablet 1000 MG PO (10:01)
[2020-07-02 15:41] VITALS: BP 97/59; PULSE 97; RESP 20; TEMP 36.7; O2SAT 96
[2020-07-02] MEDS: oxyCODONE 5 MG Tablet PO (16:24)
[2020-07-02] MEDS: Mirtazapine 15 MG Tablet 7.5 MG PO (21:55)
[2020-07-03 05:45] VITALS: BP 125/89; PULSE 100; RESP 16; TEMP 36.8; O2SAT 96
[2020-07-03] MEDS: Acetaminophen 500 MG Tablet 1000 MG PO (05:46)
[2020-07-03] MEDS: oxyCODONE 5 MG Tablet PO (05:47)
[2020-07-03] MEDS: AMOXICILLIN 500 MG CAPSULE PO ×3 (05:48→21:08)
[2020-07-03] MEDS: Losartan Potassium 100 MG Tablet PO (05:49)
[2020-07-03] MEDS: Senna/Docusate Sodium 1 Tablet PO ×2 (05:49→16:50)
[2020-07-03] MEDS: NIFEdipine 90 MG Tablet PO (05:49)
[2020-07-03] MEDS: Venlafaxine XR 75 MG Capsule PO (05:49)
[2020-07-03] MEDS: Nystatin Powder 15gm Bottle 1 APPLIC TOPICAL ×2 (05:49→16:50)
[2020-07-03] MEDS: Polyethylene Glycol 3350 17 GM PACKET PO (05:49)
[2020-07-03] MEDS: Menthol/Lanolin/Calamine/Znox 113 GM Tube 1 APPLIC TOPICAL ×2 (05:50→16:50)
[2020-07-03] MEDS: Folic Acid 1 MG Tablet PO (08:06)
[2020-07-03] MEDS: Aspirin 81 MG TAB.CHEW PO (08:06)
[2020-07-03] MEDS: Ferrous Sulfate 300 MG/5 ML UDC PO (08:06)
[2020-07-03 11:19] VITALS: PULSE 92; RESP 16; O2SAT 96
[2020-07-03 16:37] VITALS: BP 106/72; PULSE 92; RESP 18; TEMP 36.6; O2SAT 96
[2020-07-03] MEDS: Mirtazapine 15 MG Tablet 7.5 MG PO (21:09)
[2020-07-04 05:13] VITALS: BP 128/3; PULSE 89; RESP 16; TEMP 37.1; O2SAT 97
[2020-07-04] MEDS: Senna/Docusate Sodium 1 Tablet PO ×2 (05:15→16:19)
[2020-07-04] MEDS: AMOXICILLIN 500 MG CAPSULE PO ×3 (05:15→20:41)
[2020-07-04] MEDS: Losartan Potassium 100 MG Tablet PO (05:15)
[2020-07-04] MEDS: Venlafaxine XR 75 MG Capsule PO (05:16)
[2020-07-04] MEDS: NIFEdipine 90 MG Tablet PO (05:16)
[2020-07-04] MEDS: Menthol/Lanolin/Calamine/Znox 113 GM Tube 1 APPLIC TOPICAL ×2 (05:16→16:19)
[2020-07-04] MEDS: Nystatin Powder 15gm Bottle 1 APPLIC TOPICAL ×2 (05:16→16:19)
[2020-07-04] MEDS: Polyethylene Glycol 3350 17 GM PACKET PO (05:16)
[2020-07-04] MEDS: Folic Acid 1 MG Tablet PO (08:08)
[2020-07-04] MEDS: Aspirin 81 MG TAB.CHEW PO (08:08)
[2020-07-04] MEDS: Ferrous Sulfate 300 MG/5 ML UDC PO (08:09)
[2020-07-04] MEDS: LORazepam 1 MG Tablet PO (10:06)
[2020-07-04] MEDS: oxyCODONE 5 MG Tablet PO (10:38)
[2020-07-04] MEDS: Acetaminophen 500 MG Tablet 1000 MG PO (10:39)
[2020-07-04 15:26] VITALS: BP 97/68; PULSE 94; RESP 20; TEMP 36.6; O2SAT 94
[2020-07-04] MEDS: Mirtazapine 15 MG Tablet 7.5 MG PO (20:44)
[2020-07-04 20:45] VITALS: PULSE 96; RESP 18; O2SAT 96
[2020-07-05 06:23] VITALS: BP 133/87; PULSE 97; RESP 20; TEMP 36.9; O2SAT 95
[2020-07-05] MEDS: Losartan Potassium 100 MG Tablet PO (06:26)
[2020-07-05] MEDS: Venlafaxine XR 75 MG Capsule PO (06:26)
[2020-07-05] MEDS: AMOXICILLIN 500 MG CAPSULE PO ×3 (06:26→20:44)
[2020-07-05] MEDS: NIFEdipine 90 MG Tablet PO (06:26)
[2020-07-05] MEDS: Menthol/Lanolin/Calamine/Znox 113 GM Tube 1 APPLIC TOPICAL ×2 (06:27→16:38)
[2020-07-05] MEDS: Nystatin Powder 15gm Bottle 1 APPLIC TOPICAL ×2 (06:27→16:38)
[2020-07-05] MEDS: Polyethylene Glycol 3350 17 GM PACKET PO (06:27)
[2020-07-05] MEDS: Senna/Docusate Sodium 1 Tablet PO ×2 (06:28→16:37)
[2020-07-05] MEDS: Aspirin 81 MG TAB.CHEW PO (08:13)
[2020-07-05] MEDS: Ferrous Sulfate 300 MG/5 ML UDC PO (08:13)
[2020-07-05] MEDS: Folic Acid 1 MG Tablet PO (08:13)
[2020-07-05 08:31] VITALS: PULSE 98; RESP 16; O2SAT 99
[2020-07-05 16:00] VITALS: BP 126/80; PULSE 109; RESP 16; TEMP 37; O2SAT 97
--- NOTE | 2020-07-05 16:00 | PCA ---
Addendum entered by Daily Dhillon 07/05/20 18:13: updated son Addendum entered by Daily Dhillon 07/05/20 18:11: updated dr alcantara. Original Note: Entered pt room when chair alarm sounding, pt was in a squatting position so I put my knee under his bottom to try and support him and help him get back into bed bought he fought against me and lowered himself to his knees. Pt was trying to get into bed but was very confused. Rn notified
[2020-07-05 16:25] VITALS: BP 111/76; PULSE 106; RESP 18; TEMP 37.2; O2SAT 95
[2020-07-05] MEDS: oxyCODONE 5 MG Tablet PO (16:37)
--- NOTE | 2020-07-05 17:01 | CHAPLAIN ---
Type of Pastoral Visit _x__ Initial Visit ___ Follow-up Visit ___ On-call Visit ___ General Patient Visit ___ Spiritual Assessment ___ Family Conference ___ Bereavement ___ Rapid Response ___ Code Blue ___ Other (describe below) Pastoral Care Referral From _x__ Patient ___ Family ___ Nurse ___ Physician ___ Security Auditor ___ Brake Tester ___ Other (describe below) Sacrament/Intervention _x__ Active listening ___ Anointing ___ Jewish ___ Bereavement ___ Communion ___ Lorelei exploration ___ _x__ Life review _x__ Prayer ___ Reconciliation ___ Sacrament of Sick _x__ Supportive presence ___ Wedding ___ Other (describe below) Pastoral Comments patient is sitting up in chair; pt is fidgety throughout the visit; pt gives some life history including move from [place] and of his ; many details left out of summary of life; pt states he is of Synagogue lorelei and prayer is welcomed; time given for presence and support
[2020-07-05] MEDS: Mirtazapine 15 MG Tablet 7.5 MG PO (20:44)
[2020-07-06] MEDS: Menthol/Lanolin/Calamine/Znox 113 GM Tube 1 APPLIC TOPICAL ×2 (05:16→17:02)
[2020-07-06] MEDS: AMOXICILLIN 500 MG CAPSULE PO ×3 (05:16→22:25)
[2020-07-06] MEDS: Losartan Potassium 100 MG Tablet PO (05:22)
[2020-07-06] MEDS: Venlafaxine XR 75 MG Capsule PO (05:22)
[2020-07-06] MEDS: NIFEdipine 90 MG Tablet PO (05:23)
[2020-07-06] MEDS: Nystatin Powder 15gm Bottle 1 APPLIC TOPICAL ×2 (05:23→17:02)
[2020-07-06] MEDS: Polyethylene Glycol 3350 17 GM PACKET PO (05:23)
[2020-07-06] MEDS: Senna/Docusate Sodium 1 Tablet PO ×2 (05:23→17:02)
[2020-07-06 05:46] LABS: Absolute Lymphocyte Count 1.76 X10^3/uL (0.83-4.51); Absolute Neutrophil Count 13.4 X10^3/uL (2.0-7.7); Basophil# 0.07 X10^3/uL; Basophil% 0.4 % (0-1); Eosinophils% 1.2 % (0-5); Hematocrit 32.8 % (40-54); Lymphocyte # 1.76 X10^3/ul (0.83-4.51); Lymphocyte % 10.5 % (19-41); Mean Corp Hgb Conc 33.5 g/dL (32-36); Mean Corpuscular Volume 98.5 fL (80-94); Monocyte# 1.22 X10^3/uL; Monocyte% 7.2 % (0-10); NRBC Flagged by Analyzer 0 % (0-5); Neutrophil % 79.6 % (47-70); Platelet Count 573 K/mm3 (150-450); RBC Distribution Width CV 13.6 % (11.6-14.6); RBC Distribution Width SD 49.1 fl (35.1-43.9); Red Blood Count 3.33 M/mm3 (4.6-6.2); White Blood Count 16.8 K/mm3 (4.4-11.0)
--- NOTE | 2020-07-06 06:32 | NURSING ---
Pt confused this am. Has been restless throughout the shift. Took gown off during the night. Noted pt repositioned self with head at foot of the bed. Repositioned again per two staff assist in bed. Offered to transfer pt to chair and becomes irritable w/ staff requesting to stay in bed. Verbalizes pain to low back. Lays onto lt side and closes eyes quickly.
--- NOTE | 2020-07-06 06:37 | NURSING ---
Pt attempts to void into urinal and unable to void. Brief dry. Spoke w/ RN CONCURRENT REVIEWAshlyn, who reports pt was incontinent of a large amount of urine x2 during the shift w/ the last episode at 0300.
[2020-07-06] MEDS: oxyCODONE 5 MG Tablet PO ×2 (09:25→14:03)
[2020-07-06] MEDS: Aspirin 81 MG TAB.CHEW PO (09:25)
[2020-07-06] MEDS: Ferrous Sulfate 300 MG/5 ML UDC PO (09:25)
[2020-07-06] MEDS: Folic Acid 1 MG Tablet PO (09:25)
[2020-07-06 11:55] LABS: Anion Gap 7 (5-15); BUN 12 mg/dL (7-18); BUN/Creat Ratio 14.2 RATIO (10-20); Calcium,Total 9.3 mg/dL (8.5-10.1); Chloride 98 mmol/L (98-107); Creatinine, Serum 0.85 mg/dL (0.70-1.30); EST Glomerular Filtration Rate 95 mL/min (>60); Est Glom Filt Rate - Afr Amer 115 mL/min (>60); Estimated Creatinine Clearance 90.08 ml/min; Glucose 89 mg/dL (74-106); Potassium 3.8 mmol/L (3.5-5.1); Sodium Level 131 mmol/L (136-145)
--- NOTE | 2020-07-06 11:55 | NURSING ---
Sterile urine collected via straight cath at 1150. Patient tolerated procedure well. Specimen sent to lab at this time.
[2020-07-06 11:59] LABS: Mucous, Urine 0 SEEN /hpf (<or=2+); Red Blood Cells-Urine 0 SEEN /hpf (0-5); Squamous Epithelial Cells - UA 0 SEEN /hpf (0-5); White Blood Cells 0 SEEN /hpf (0-5)
[2020-07-06 12:01] LABS: Color, Urine Straw (Yellow); Glucose, Dipstick Normal (Normal); Ketone-Dipstick Negative (Negative); Leukocyte Esterase-Dipstick Negative /ul (Negative); Nitrite-Dipstick Negative (Negative); Occult Blood-Urine Negative /ul (Negative); Protein-Dipstick Negative (Negative); Urine Bilirubin Dipstick Negative (Negative); Urine Clarity Clear (Clear); Urine Urobilinogen 1 mg/dl (Normal)
[2020-07-06 12:09] LABS: Amorphous Sediment 1+; Bacteria RARE /hpf (None Seen)
[2020-07-06] MEDS: Tuberculin,Purif.prot.deriv. 50 TU/ML Vial 5 ML ID (12:46)
[2020-07-06 13:48] VITALS: PULSE 89; RESP 14; O2SAT 96
[2020-07-06] MEDS: Baclofen 10 MG Tablet PO (14:03)
[2020-07-06 15:41] VITALS: BP 108/73; PULSE 89; RESP 14; TEMP 36.9; O2SAT 96
[2020-07-06] MEDS: Mirtazapine 15 MG Tablet 7.5 MG PO (22:25)
[2020-07-07 05:21] VITALS: BP 114/80; PULSE 88; RESP 18; TEMP 37; O2SAT 95
[2020-07-07] MEDS: NIFEdipine 90 MG Tablet PO (05:23)
[2020-07-07] MEDS: Polyethylene Glycol 3350 17 GM PACKET PO (05:23)
[2020-07-07] MEDS: AMOXICILLIN 500 MG CAPSULE PO (05:23)
[2020-07-07] MEDS: Losartan Potassium 100 MG Tablet PO (05:23)
[2020-07-07] MEDS: Senna/Docusate Sodium 1 Tablet PO ×2 (05:23→17:43)
[2020-07-07] MEDS: Menthol/Lanolin/Calamine/Znox 113 GM Tube 1 APPLIC TOPICAL ×2 (05:23→17:45)
[2020-07-07] MEDS: Venlafaxine XR 75 MG Capsule PO (05:23)
[2020-07-07] MEDS: Nystatin Powder 15gm Bottle 1 APPLIC TOPICAL ×2 (05:24→17:45)
[2020-07-07] MEDS: Acetaminophen 500 MG Tablet 1000 MG PO (05:32)
[2020-07-07] MEDS: Aspirin 81 MG TAB.CHEW PO (07:53)
[2020-07-07] MEDS: Folic Acid 1 MG Tablet PO (07:53)
[2020-07-07] MEDS: Ferrous Sulfate 300 MG/5 ML UDC PO (07:54)
[2020-07-07] MEDS: Baclofen 10 MG Tablet PO (09:31)
[2020-07-07 11:00] VITALS: PULSE 97; RESP 18; O2SAT 97
[2020-07-07] MEDS: LORazepam 1 MG Tablet PO ×2 (12:22→17:49)
[2020-07-07] MEDS: oxyCODONE 5 MG Tablet PO ×2 (12:22→17:49)
--- NOTE | 2020-07-07 12:47 | CASEMGMT ---
Social Work IDT met with patient and son via conference call for care plan meeting. Discussed patient's progress in therapy and nursing. Pt is being impulsive, restless, having intermittent confusion, and pain, which is not at pt's baseline. Pt requires 2 assist for transfers and walking due to impulsivity. ST working on swallowing. Pt is on puree, thin diet with 1:1 supervision. Pt is having poor appetite - golf club weigher recommending Remeron. Explained Medicare benefit and pt does not have secondary insurance; thus copays begin day 21 on 07/18. Inquired about DC plan and copays. Son states they are unable to pay out of pocket so pt would DC home. Son works from home and states he will be able to assist pt with his needs. Suggested once pt is out of isolation 07/12, son to attend therapy training to ensure he can assist. Son agreed to training 07/13. SW to continue to follow. Elida Lester, UNIT EDUCATOR EQUIPMENT OPERATOR/LABORER
[2020-07-07 13:58] VITALS: BP 108/82; PULSE 91; RESP 17; TEMP 36.7; O2SAT 96
[2020-07-07] MEDS: Mirtazapine 15 MG Tablet 7.5 MG PO (20:56)
[2020-07-08] MEDS: Menthol/Lanolin/Calamine/Znox 113 GM Tube 1 APPLIC TOPICAL ×2 (06:11→17:41)
[2020-07-08] MEDS: Losartan Potassium 100 MG Tablet PO (06:11)
[2020-07-08] MEDS: Polyethylene Glycol 3350 17 GM PACKET PO (06:11)
[2020-07-08] MEDS: Senna/Docusate Sodium 1 Tablet PO ×2 (06:12→17:42)
[2020-07-08] MEDS: Venlafaxine XR 75 MG Capsule PO (06:12)
[2020-07-08] MEDS: NIFEdipine 90 MG Tablet PO (06:12)
[2020-07-08] MEDS: Nystatin Powder 15gm Bottle 1 APPLIC TOPICAL ×2 (06:12→17:41)
[2020-07-08 07:07] VITALS: PULSE 94; RESP 16; TEMP 37.6
[2020-07-08] MEDS: Aspirin 81 MG TAB.CHEW PO (07:47)
[2020-07-08] MEDS: Folic Acid 1 MG Tablet PO (07:47)
[2020-07-08] MEDS: Ferrous Sulfate 300 MG/5 ML UDC PO (07:47)
--- NOTE | 2020-07-08 13:56 | MDS.RN ---
Information for the mds was obtained from review of the clinical record, interview of resident, staff, and direct observation of resident's care.
[2020-07-08 15:37] VITALS: BP 116/68; PULSE 94; RESP 16; TEMP 36.9; O2SAT 97
[2020-07-08 18:19] LABS: ALB/GLOB Ratio 0.6 RATIO (0.9-2.4); AST(SGOT) 43 U/L (15-37); Alanine Aminotransfer ALT/SGPT 44 U/L (16-61); Albumin, Serum 2.6 g/dL (3.2-5.0); Alkaline Phosphatase 123 U/L (45-117); Anion Gap 8 (5-15); BUN 15 mg/dL (7-18); BUN/Creat Ratio 16.1 RATIO (10-20); Calcium,Total 8.8 mg/dL (8.5-10.1); Chloride 97 mmol/L (98-107); Creatinine, Serum 0.93 mg/dL (0.70-1.30); EST Glomerular Filtration Rate 85 mL/min (>60); Est Glom Filt Rate - Afr Amer 103 mL/min (>60); Estimated Creatinine Clearance 82.33 ml/min; Globulin 4.7 g/dL (2.2-4.2); Glucose 96 mg/dL (74-106); Potassium 4.3 mmol/L (3.5-5.1); Protein, Total 7.3 g/dL (6.4-8.2); Sodium Level 133 mmol/L (136-145)
--- NOTE | 2020-07-08 19:37 | NURSING ---
Pt's son called and questioned this nurse about Labs that Dr. Finley ordered. Adv him that there was no critical lab values and that Dr. Finley would be in tomorrow to review labs and If he would like I could have him review that labs with him. Son very upset about his cognition level and doesn't feel that this is his dads baseline. He stated that his mental status was not like this before going through withdraw. Son stated he would like for his dad to see a neurologist or a psychologist that he feels that there is something else going on with his dad. Advised pt that we would not be able to send him anywhere this evening and that his dad was Alert to self and Place at this time. Let him know that he does have some Anxiety and that he does want to go home. Also adv him that he has been refusing to eat for us. Let him know that I will update Dr. Finley and the director social welfare and both will be in touch in the morning.
[2020-07-08 20:00] VITALS: PULSE 95; RESP 18; O2SAT 95
[2020-07-08] MEDS: Mirtazapine 15 MG Tablet 7.5 MG PO (22:50)
[2020-07-09 04:59] VITALS: BP 127/82; PULSE 92; RESP 18; TEMP 37.1; O2SAT 98
[2020-07-09] MEDS: Venlafaxine XR 75 MG Capsule PO (05:00)
[2020-07-09] MEDS: NIFEdipine 90 MG Tablet PO (05:00)
[2020-07-09] MEDS: Menthol/Lanolin/Calamine/Znox 113 GM Tube 1 APPLIC TOPICAL ×2 (05:01→16:34)
[2020-07-09] MEDS: Losartan Potassium 100 MG Tablet PO (05:01)
[2020-07-09] MEDS: Nystatin Powder 15gm Bottle 1 APPLIC TOPICAL ×2 (05:01→21:12)
[2020-07-09] MEDS: Folic Acid 1 MG Tablet PO (08:38)
[2020-07-09 11:09] VITALS: PULSE 106; RESP 18; O2SAT 96
--- NOTE | 2020-07-09 11:17 | CASEMGMT ---
Social Work Followed up with both sons to answer questions. Both expressed concern with decline in cognition, having agitation and wanting to ensure all medical concerns are being addressed. Validated feelings and concerns. Appreciated both sons advocating for pt. Both sons spoke with Dr. Finley and felt they received little answers aside from pt being a chronic alcoholic. Sons both stated they understand his chronic alcoholism and if this is pt's new baseline d/t to that, that is fine, however, want to ensure nothing is being missed. Requested any pain medication or that would make him calm or foggy be discontinued. Dr. Finley already completed that request. Sons requesting neurology consult. Offered to ask Dr. Finley. Sons appreciative of support. Discussed DC plans as pt is still requiring assistance. Explained nonskilled and skilled HHC. Inquired about Medicaid. Unsure if pt would qualify but offered to provide application to be sure. Son agreeable. Emailed list of agencies and Medicaid application. Will continue to follow. Elida Lester, YOANNA SEALSW
--- NOTE | 2020-07-09 13:20 | TELEMED_ITS ---
SOC Telemed has confirmed receipt of a request for visit. This document confirms receipt of the order initiating the consult. To find the results of the consultation, please view the patient's reports for the scanned Telemed Consult.
--- NOTE | 2020-07-09 14:45 | NURSING ---
NEUROLOGY ORDERED VIA TELEHEALTH PER DR ALBA ORDER PER SON REQUEST. NEW ORDERS FOR CT BRAIN, LABS, & CXR. SON ON PHONE AND AWARE OF ALL ORDERS.
[2020-07-09 15:34] VITALS: BP 112/79; PULSE 106; RESP 18; TEMP 36.8; O2SAT 96
--- NOTE | 2020-07-09 15:50 | RAD_ITS ---
STUDY: X-RAY CHEST REASON FOR EXAM: Male, 70 years old. Elevated WBC TECHNIQUE: 2 views COMPARISON: Prior chest radiograph of 07/08/2020 FINDINGS: The lungs are clear and expanded. There is no demonstrated pleural abnormality. Normal size heart. Normal mediastinum and patience. Normal visualized pulmonary arteries. There is atherosclerotic tortuosity of the aortic arch and descending thoracic aorta. Normal visualized thoracic spine. Normal visualized ribs, clavicles, and shoulders. There is no demonstrated abnormality of the visualized soft tissue structures of the upper abdomen. RAD/Chest PA and Lateral IMPRESSION: No acute cardiopulmonary findings or changes. Negative for new consolidation, atelectasis or other infiltrates. Stable cardiac size. Electronically Signed: Tari Webb MD at 16:08 EDT , Service support ,
[2020-07-09] MEDS: Acetaminophen 500 MG Tablet 1000 MG PO (16:33)
[2020-07-09] MEDS: Multivitamins,Ther W-Minerals Tablet 1 TABLET PO (18:28)
[2020-07-10] MEDS: NIFEdipine 90 MG Tablet PO (04:36)
[2020-07-10] MEDS: Venlafaxine XR 75 MG Capsule PO (04:36)
[2020-07-10] MEDS: Losartan Potassium 100 MG Tablet PO (04:36)
[2020-07-10] MEDS: Nystatin Powder 15gm Bottle 1 APPLIC TOPICAL ×2 (04:37→20:49)
[2020-07-10] MEDS: Menthol/Lanolin/Calamine/Znox 113 GM Tube 1 APPLIC TOPICAL ×2 (04:37→16:37)
[2020-07-10 06:22] VITALS: BP 114/82; PULSE 83; RESP 12; TEMP 37.6
[2020-07-10] MEDS: Multivitamins,Ther W-Minerals Tablet 1 TABLET PO (09:07)
[2020-07-10] MEDS: Folic Acid 1 MG Tablet PO (09:07)
[2020-07-10 09:11] LABS: Thyroid Stim Hormone (TSH) 0.89 uIU/mL (0.358-3.74)
[2020-07-10] MEDS: Acetaminophen 500 MG Tablet 1000 MG PO (12:49)
[2020-07-10 14:49] VITALS: BP 105/67; PULSE 87; RESP 16; TEMP 36.4; O2SAT 93
[2020-07-10] MEDS: MENTHOL 226.8 GM JAR 1 APPLIC TOPICAL ×2 (16:39→20:51)
[2020-07-11 04:43] VITALS: BP 119/80; PULSE 89; RESP 16; TEMP 36.7; O2SAT 96
[2020-07-11] MEDS: Menthol/Lanolin/Calamine/Znox 113 GM Tube 1 APPLIC TOPICAL ×2 (04:46→16:07)
[2020-07-11] MEDS: Nystatin Powder 15gm Bottle 1 APPLIC TOPICAL ×2 (04:47→20:13)
[2020-07-11] MEDS: Acetaminophen 500 MG Tablet 1000 MG PO ×2 (04:49→12:11)
[2020-07-11] MEDS: NIFEdipine 90 MG Tablet PO (04:49)
[2020-07-11] MEDS: Losartan Potassium 100 MG Tablet PO (04:50)
[2020-07-11] MEDS: Venlafaxine XR 75 MG Capsule PO (04:50)
[2020-07-11] MEDS: Multivitamins,Ther W-Minerals Tablet 1 TABLET PO (08:38)
[2020-07-11] MEDS: Folic Acid 1 MG Tablet PO (08:38)
[2020-07-11] MEDS: MENTHOL 226.8 GM JAR 1 APPLIC TOPICAL ×2 (08:38→14:22)
[2020-07-11 14:44] VITALS: BP 108/67; PULSE 86; RESP 18; TEMP 36.4; O2SAT 94
[2020-07-12 04:34] VITALS: BP 116/82; PULSE 100; RESP 16; TEMP 37.2; O2SAT 96
[2020-07-12] MEDS: Menthol/Lanolin/Calamine/Znox 113 GM Tube 1 APPLIC TOPICAL ×2 (04:36→16:31)
[2020-07-12] MEDS: Nystatin Powder 15gm Bottle 1 APPLIC TOPICAL ×2 (04:37→20:33)
[2020-07-12] MEDS: Venlafaxine XR 75 MG Capsule PO (04:37)
[2020-07-12] MEDS: NIFEdipine 90 MG Tablet PO (04:37)
[2020-07-12] MEDS: Losartan Potassium 100 MG Tablet PO (04:38)
--- NOTE | 2020-07-12 04:41 | NURSING ---
Continues to deny any c/o pain or discomfort this shift. Positioned in bed for comfort after am meds administered.
--- NOTE | 2020-07-12 08:10 | RAD_ITS ---
STUDY: X-RAY - LUMBAR SPINE REASON FOR EXAM: Male, 70 years old. Low back pain radiating down legs. TECHNIQUE: 5 view(s) of the lumbar spine were obtained including oblique views. COMPARISON: None FINDINGS: Normal lumbar lordosis. There is no substantial scoliosis. There is a normal alignment of the vertebrae. There is multilevel endplate spondylosis of the lumbar vertebrae. There is multi-level degenerative disc disease with multi-level disc space narrowing. The soft tissue structures are unremarkable. RAD/L/S Spine Min 4 Views IMPRESSION: Degenerative changes of the spine, as detailed above. Electronically Signed: Leno Romo MD at 8:48 EDT , Service support ,
[2020-07-12] MEDS: Folic Acid 1 MG Tablet PO (08:57)
[2020-07-12] MEDS: Multivitamins,Ther W-Minerals Tablet 1 TABLET PO (08:57)
[2020-07-12 10:00] VITALS: PULSE 87; RESP 18; O2SAT 95
[2020-07-12 10:49] LABS: Vitamin B12 470 pg/mL (211-911)
[2020-07-12] MEDS: Acetaminophen 500 MG Tablet 1000 MG PO ×2 (12:03→20:26)
[2020-07-12] MEDS: MENTHOL 226.8 GM JAR 1 APPLIC TOPICAL (12:04)
--- NOTE | 2020-07-12 12:17 | NURSING ---
Speech therapy working with resident. Only takes Nibbles of food. Encouraged to eat more. States I just want to go home. My son can hospital cook for me at home. Offered ensure and he takes but only a few drinks of it. Complains of Lt hip and back pain. Given tylenol and blue gel for pain relief.
[2020-07-12 12:57] VITALS: BP 107/64; PULSE 79; RESP 18; TEMP 36.1; O2SAT 98
[2020-07-13 05:00] VITALS: BP 117/82; PULSE 88; RESP 16; TEMP 36.4; O2SAT 99
[2020-07-13 05:59] LABS: Absolute Lymphocyte Count 1.35 X10^3/uL (0.83-4.51); Basophil# 0.05 X10^3/uL; Basophil% 0.4 % (0-1); Eosinophil# 0.12 X10^3/uL; Hematocrit 35.5 % (40-54); Hemoglobin 11.6 g/dL (13.0-16.5); Lymphocyte # 1.35 X10^3/ul (0.83-4.51); Lymphocyte % 11.7 % (19-41); Mean Corp Hgb Conc 32.7 g/dL (32-36); Mean Corpuscular Volume 97.8 fL (80-94); Monocyte# 0.93 X10^3/uL; Monocyte% 8.1 % (0-10); NRBC Flagged by Analyzer 0 % (0-5); Neutrophil # 8.99 X10^3/uL (2.7-7.7); Neutrophil % 78.1 % (47-70); Platelet Count 546 K/mm3 (150-450); RBC Distribution Width CV 13.3 % (11.6-14.6); RBC Distribution Width SD 47.8 fl (35.1-43.9); Red Blood Count 3.63 M/mm3 (4.6-6.2); White Blood Count 11.5 K/mm3 (4.4-11.0)
[2020-07-13 06:16] LABS: Anion Gap 5 (5-15); BUN 14 mg/dL (7-18); BUN/Creat Ratio 17.7 RATIO (10-20); Calcium,Total 8.9 mg/dL (8.5-10.1); Chloride 97 mmol/L (98-107); Creatinine, Serum 0.79 mg/dL (0.70-1.30); EST Glomerular Filtration Rate 102 mL/min (>60); Est Glom Filt Rate - Afr Amer 124 mL/min (>60); Estimated Creatinine Clearance 76.57 ml/min; Glucose 94 mg/dL (74-106); Potassium 3.5 mmol/L (3.5-5.1); Sodium Level 133 mmol/L (136-145)
[2020-07-13] MEDS: Menthol/Lanolin/Calamine/Znox 113 GM Tube 1 APPLIC TOPICAL ×2 (07:11→16:56)
[2020-07-13] MEDS: Nystatin Powder 15gm Bottle 1 APPLIC TOPICAL ×2 (07:12→20:00)
[2020-07-13] MEDS: Venlafaxine XR 75 MG Capsule PO (07:12)
[2020-07-13] MEDS: Losartan Potassium 100 MG Tablet PO (07:12)
[2020-07-13] MEDS: NIFEdipine 90 MG Tablet PO (07:13)
[2020-07-13] MEDS: Multivitamins,Ther W-Minerals Tablet 1 TABLET PO (08:03)
[2020-07-13] MEDS: Folic Acid 1 MG Tablet PO (08:03)
[2020-07-13] MEDS: traMADol 50 MG Tablet PO ×2 (09:30→18:46)
[2020-07-13] MEDS: MENTHOL 226.8 GM JAR 1 APPLIC TOPICAL (09:32)
[2020-07-13 18:36] VITALS: PULSE 84; RESP 16; O2SAT 97
[2020-07-13] MEDS: Acetaminophen 500 MG Tablet 1000 MG PO (19:59)
[2020-07-14 05:00] VITALS: BP 121/84; PULSE 83; RESP 16; TEMP 36.4; O2SAT 95
[2020-07-14] MEDS: Nystatin Powder 15gm Bottle 1 APPLIC TOPICAL ×2 (06:00→20:12)
[2020-07-14] MEDS: Menthol/Lanolin/Calamine/Znox 113 GM Tube 1 APPLIC TOPICAL ×2 (06:00→18:25)
[2020-07-14] MEDS: NIFEdipine 90 MG Tablet PO (06:01)
[2020-07-14] MEDS: Venlafaxine XR 75 MG Capsule PO (06:01)
[2020-07-14] MEDS: Losartan Potassium 100 MG Tablet PO (06:01)
[2020-07-14] MEDS: Folic Acid 1 MG Tablet PO (08:38)
[2020-07-14] MEDS: Multivitamins,Ther W-Minerals Tablet 1 TABLET PO (08:38)
[2020-07-14] MEDS: Gabapentin 100 MG Capsule PO ×2 (14:03→18:24)
[2020-07-14 14:25] VITALS: BP 101/66; PULSE 89; RESP 16; TEMP 36.2; O2SAT 97
--- NOTE | 2020-07-14 17:19 | CHAPLAIN ---
Type of Pastoral Visit ___ Initial Visit _x__ Follow-up Visit ___ On-call Visit ___ General Patient Visit ___ Spiritual Assessment ___ Family Conference ___ Bereavement ___ Rapid Response ___ Code Blue ___ Other (describe below) Pastoral Care Referral From ___ Patient ___ Family _x__ Nurse ___ Physician ___ Phthalic Acid Purifier ___ Pocket Grinder Operator ___ Other (describe below) Sacrament/Intervention _x__ Active listening ___ Anointing ___ Presybeterian ___ Bereavement ___ Communion _x__ Lorelei exploration ___ ___ Life review _x__ Prayer ___ Reconciliation ___ Sacrament of Sick _x__ Supportive presence ___ Wedding ___ Other (describe below) Pastoral Comments RN recommended visit for support to patient who is described as not eating and not engaged in self help activities; pt is awake and lying down in bed; pt remembers this clinical applications specialist; pt is asked about his day and his response is I am so-so; talked again about feelings of loneliness and isolation in his room and how he misses his ; reviewed past experiences and how he survived other hardships and to use that for his current mental help; pt has rosary and icons in room as per his Jainism lorelei; encouraged pt to seek his lorelei for help and pt agreed that he would look to God; prayer given for patient; pt responds that he is grateful for visit
[2020-07-14] MEDS: Mirtazapine 15 MG Tablet 7.5 MG PO (20:12)
[2020-07-15 05:00] VITALS: BP 110/74; PULSE 95; RESP 18; TEMP 36.9; O2SAT 96
[2020-07-15] MEDS: Venlafaxine XR 75 MG Capsule PO (05:09)
[2020-07-15] MEDS: NIFEdipine 90 MG Tablet PO (05:09)
[2020-07-15] MEDS: Menthol/Lanolin/Calamine/Znox 113 GM Tube 1 APPLIC TOPICAL ×2 (05:09→18:18)
[2020-07-15] MEDS: Losartan Potassium 100 MG Tablet PO (05:09)
[2020-07-15] MEDS: Nystatin Powder 15gm Bottle 1 APPLIC TOPICAL ×2 (05:10→22:09)
[2020-07-15] MEDS: traMADol 50 MG Tablet PO ×2 (08:57→18:24)
[2020-07-15] MEDS: Folic Acid 1 MG Tablet PO (08:58)
[2020-07-15] MEDS: Gabapentin 100 MG Capsule PO ×3 (08:58→18:16)
[2020-07-15] MEDS: Multivitamins,Ther W-Minerals Tablet 1 TABLET PO (08:58)
[2020-07-15] MEDS: Acetaminophen 500 MG Tablet 1000 MG PO (12:09)
[2020-07-15] MEDS: MENTHOL 226.8 GM JAR 1 APPLIC TOPICAL (12:11)
[2020-07-15 14:00] VITALS: BP 85/54; PULSE 95; RESP 18; TEMP 35.9; O2SAT 95
[2020-07-15 18:31] VITALS: BP 103/74; PULSE 78
[2020-07-15] MEDS: Mirtazapine 15 MG Tablet 7.5 MG PO (22:09)
[2020-07-16] MEDS: Menthol/Lanolin/Calamine/Znox 113 GM Tube 1 APPLIC TOPICAL ×2 (04:49→17:06)
[2020-07-16] MEDS: Venlafaxine XR 75 MG Capsule PO (04:50)
[2020-07-16] MEDS: Nystatin Powder 15gm Bottle 1 APPLIC TOPICAL ×2 (04:50→20:19)
[2020-07-16] MEDS: Losartan Potassium 100 MG Tablet PO (04:50)
[2020-07-16] MEDS: NIFEdipine 90 MG Tablet PO (04:51)
[2020-07-16 06:17] VITALS: BP 106/78; PULSE 87; RESP 14; TEMP 37.3
[2020-07-16] MEDS: Gabapentin 100 MG Capsule PO ×3 (08:09→17:05)
[2020-07-16] MEDS: Folic Acid 1 MG Tablet PO (08:09)
[2020-07-16] MEDS: Multivitamins,Ther W-Minerals Tablet 1 TABLET PO (08:09)
[2020-07-16 08:19] LABS: Vitamin B1, Thiamine 154.3 nmol/L (66.5-200.0)
[2020-07-16] MEDS: traMADol 50 MG Tablet PO (09:15)
[2020-07-16 15:21] VITALS: BP 106/67; PULSE 95; RESP 18; TEMP 36.9; O2SAT 96
[2020-07-16] MEDS: Mirtazapine 15 MG Tablet 7.5 MG PO (20:19)
[2020-07-17] MEDS: traMADol 50 MG Tablet PO ×3 (00:12→21:01)
[2020-07-17 01:14] VITALS: PULSE 86; RESP 16
[2020-07-17] MEDS: Losartan Potassium 100 MG Tablet PO (04:37)
[2020-07-17] MEDS: Menthol/Lanolin/Calamine/Znox 113 GM Tube 1 APPLIC TOPICAL ×2 (04:37→16:43)
[2020-07-17] MEDS: Venlafaxine XR 75 MG Capsule PO (04:38)
[2020-07-17] MEDS: NIFEdipine 90 MG Tablet PO (04:38)
[2020-07-17] MEDS: Nystatin Powder 15gm Bottle 1 APPLIC TOPICAL ×2 (04:38→21:02)
[2020-07-17 05:00] VITALS: BP 109/78; PULSE 90; RESP 14; TEMP 37.1; O2SAT 97
[2020-07-17] MEDS: Folic Acid 1 MG Tablet PO (09:07)
[2020-07-17] MEDS: Gabapentin 100 MG Capsule PO ×3 (09:07→16:43)
[2020-07-17] MEDS: Multivitamins,Ther W-Minerals Tablet 1 TABLET PO (09:07)
[2020-07-17 10:57] VITALS: PULSE 86; RESP 18; O2SAT 95
[2020-07-17 15:36] VITALS: BP 108/75; PULSE 86; RESP 18; TEMP 36.4; O2SAT 95
[2020-07-17] MEDS: Acetaminophen 500 MG Tablet 1000 MG PO (21:01)
[2020-07-17] MEDS: Mirtazapine 15 MG Tablet 7.5 MG PO (21:03)
[2020-07-18 05:10] VITALS: BP 119/86; PULSE 95; RESP 18; TEMP 36.3; O2SAT 98
[2020-07-18] MEDS: Venlafaxine XR 75 MG Capsule PO (05:14)
[2020-07-18] MEDS: Acetaminophen 500 MG Tablet 1000 MG PO (05:14)
[2020-07-18] MEDS: NIFEdipine 90 MG Tablet PO (05:14)
[2020-07-18] MEDS: Losartan Potassium 100 MG Tablet PO (05:14)
[2020-07-18] MEDS: Menthol/Lanolin/Calamine/Znox 113 GM Tube 1 APPLIC TOPICAL ×2 (05:18→16:44)
[2020-07-18] MEDS: Nystatin Powder 15gm Bottle 1 APPLIC TOPICAL ×2 (05:19→20:37)
[2020-07-18] MEDS: traMADol 50 MG Tablet PO ×2 (06:57→18:09)
[2020-07-18] MEDS: Multivitamins,Ther W-Minerals Tablet 1 TABLET PO (08:17)
[2020-07-18] MEDS: Folic Acid 1 MG Tablet PO (08:17)
[2020-07-18] MEDS: Gabapentin 100 MG Capsule PO ×3 (08:17→16:44)
[2020-07-18 15:48] VITALS: BP 92/63; PULSE 85; RESP 16; TEMP 36.9; O2SAT 96
[2020-07-18] MEDS: Mirtazapine 15 MG Tablet 7.5 MG PO (20:36)
[2020-07-19] MEDS: traMADol 50 MG Tablet PO ×3 (00:30→16:21)
[2020-07-19] MEDS: Acetaminophen 500 MG Tablet 1000 MG PO ×3 (00:30→17:44)
[2020-07-19 05:00] VITALS: BP 119/78; PULSE 86; RESP 16; TEMP 36.2; O2SAT 96
[2020-07-19] MEDS: Menthol/Lanolin/Calamine/Znox 113 GM Tube 1 APPLIC TOPICAL ×2 (05:01→16:09)
[2020-07-19] MEDS: Nystatin Powder 15gm Bottle 1 APPLIC TOPICAL ×2 (05:01→20:25)
[2020-07-19] MEDS: Losartan Potassium 100 MG Tablet PO (05:02)
[2020-07-19] MEDS: Venlafaxine XR 75 MG Capsule PO (05:02)
[2020-07-19] MEDS: NIFEdipine 90 MG Tablet PO (05:02)
[2020-07-19] MEDS: Folic Acid 1 MG Tablet PO (08:28)
[2020-07-19] MEDS: Gabapentin 100 MG Capsule PO ×3 (08:29→17:44)
[2020-07-19] MEDS: Multivitamins,Ther W-Minerals Tablet 1 TABLET PO (08:29)
[2020-07-19 15:37] VITALS: BP 89/58; PULSE 68; RESP 16; TEMP 37; O2SAT 96
[2020-07-19] MEDS: MENTHOL 226.8 GM JAR 1 APPLIC TOPICAL (17:47)
[2020-07-19 17:56] VITALS: BP 103/61; PULSE 74
[2020-07-19] MEDS: Mirtazapine 15 MG Tablet 7.5 MG PO (20:27)
[2020-07-20 05:28] LABS: Absolute Lymphocyte Count 1.55 X10^3/uL (0.83-4.51); Absolute Neutrophil Count 9.5 X10^3/uL (2.0-7.7); Basophil# 0.05 X10^3/uL; Basophil% 0.4 % (0-1); Eosinophils% 1.6 % (0-5); Hematocrit 31.8 % (40-54); Hemoglobin 10.5 g/dL (13.0-16.5); Lymphocyte # 1.55 X10^3/ul (0.83-4.51); Lymphocyte % 12.6 % (19-41); Mean Corpuscular Hgb 32.3 pg (27.0-32.0); Mean Corpuscular Volume 97.8 fL (80-94); Monocyte# 1.02 X10^3/uL; Monocyte% 8.3 % (0-10); NRBC Flagged by Analyzer 0 % (0-5); Neutrophil # 9.45 X10^3/uL (2.7-7.7); Neutrophil % 76.5 % (47-70); Platelet Count 571 K/mm3 (150-450); RBC Distribution Width CV 13.2 % (11.6-14.6); RBC Distribution Width SD 46.7 fl (35.1-43.9); Red Blood Count 3.25 M/mm3 (4.6-6.2); White Blood Count 12.4 K/mm3 (4.4-11.0)
[2020-07-20] MEDS: Menthol/Lanolin/Calamine/Znox 113 GM Tube 1 APPLIC TOPICAL ×2 (05:30→17:59)
[2020-07-20] MEDS: Venlafaxine XR 75 MG Capsule PO (05:31)
[2020-07-20] MEDS: Nystatin Powder 15gm Bottle 1 APPLIC TOPICAL ×2 (05:31→18:03)
[2020-07-20] MEDS: NIFEdipine 90 MG Tablet PO (05:35)
[2020-07-20] MEDS: Losartan Potassium 100 MG Tablet PO (05:36)
[2020-07-20 05:38] VITALS: BP 115/85; PULSE 67; RESP 16; TEMP 37; O2SAT 97
[2020-07-20 05:43] LABS: Anion Gap 5 (5-15); BUN 14 mg/dL (7-18); BUN/Creat Ratio 15.2 RATIO (10-20); Calcium,Total 9.5 mg/dL (8.5-10.1); Chloride 100 mmol/L (98-107); Creatinine, Serum 0.92 mg/dL (0.70-1.30); EST Glomerular Filtration Rate 86 mL/min (>60); Est Glom Filt Rate - Afr Amer 104 mL/min (>60); Estimated Creatinine Clearance 83.23 ml/min; Glucose 96 mg/dL (74-106); Potassium 4.2 mmol/L (3.5-5.1); Sodium Level 135 mmol/L (136-145)
[2020-07-20] MEDS: Folic Acid 1 MG Tablet PO (08:06)
[2020-07-20] MEDS: Gabapentin 100 MG Capsule PO ×3 (08:06→17:59)
[2020-07-20] MEDS: Multivitamins,Ther W-Minerals Tablet 1 TABLET PO (08:06)
[2020-07-20] MEDS: traMADol 50 MG Tablet PO (12:06)
[2020-07-20 13:02] VITALS: BP 104/62; PULSE 69; RESP 18; TEMP -12.7; TEMP 9.1; O2SAT 97
[2020-07-20] MEDS: MENTHOL 226.8 GM JAR 1 APPLIC TOPICAL (18:03)
[2020-07-20] MEDS: Mirtazapine 15 MG Tablet 7.5 MG PO (20:32)
[2020-07-20 23:54] VITALS: PULSE 100; RESP 14
[2020-07-21] MEDS: traMADol 50 MG Tablet PO ×2 (02:09→14:14)
[2020-07-21] MEDS: Menthol/Lanolin/Calamine/Znox 113 GM Tube 1 APPLIC TOPICAL ×2 (04:52→16:45)
[2020-07-21] MEDS: Losartan Potassium 100 MG Tablet PO (04:53)
[2020-07-21] MEDS: Nystatin Powder 15gm Bottle 1 APPLIC TOPICAL ×2 (04:53→21:03)
[2020-07-21] MEDS: Venlafaxine XR 75 MG Capsule PO (04:53)
[2020-07-21] MEDS: NIFEdipine 90 MG Tablet PO (04:53)
[2020-07-21 07:13] VITALS: BP 115/85; PULSE 90; RESP 14; TEMP 37.1
[2020-07-21] MEDS: Folic Acid 1 MG Tablet PO (07:54)
[2020-07-21] MEDS: Multivitamins,Ther W-Minerals Tablet 1 TABLET PO (07:54)
[2020-07-21] MEDS: Gabapentin 100 MG Capsule PO ×3 (07:54→16:44)
--- NOTE | 2020-07-21 08:53 | ST ---
Called and left voicemail for pt's son 07/20/20 at 11:16am regarding pt's discharge from ST including lack of participation and progress. Awaiting return call.
[2020-07-21] MEDS: Acetaminophen 500 MG Tablet 1000 MG PO (14:14)
[2020-07-21 14:23] VITALS: BP 121/68; PULSE 80; RESP 18; TEMP 36.7; O2SAT 95
[2020-07-21] MEDS: MENTHOL 226.8 GM JAR 1 APPLIC TOPICAL (16:41)
--- NOTE | 2020-07-21 18:16 | NURSING ---
Pt crying out in pain pt not due at this time for pain medication applied prn blue gel. Dr. Finley updated d/t families request of no narcotics no new orders were entered. Pt still refusing to eat educated pt on importance of eating.
[2020-07-21] MEDS: Mirtazapine 15 MG Tablet 7.5 MG PO (21:02)
[2020-07-22 05:12] VITALS: BP 120/81; PULSE 94; RESP 16; TEMP 36.8; O2SAT 94
[2020-07-22] MEDS: Menthol/Lanolin/Calamine/Znox 113 GM Tube 1 APPLIC TOPICAL ×2 (05:13→16:59)
[2020-07-22] MEDS: Venlafaxine XR 75 MG Capsule PO (05:13)
[2020-07-22] MEDS: Nystatin Powder 15gm Bottle 1 APPLIC TOPICAL ×2 (05:13→21:17)
[2020-07-22] MEDS: Losartan Potassium 100 MG Tablet PO (05:14)
[2020-07-22] MEDS: NIFEdipine 90 MG Tablet PO (05:14)
[2020-07-22] MEDS: traMADol 50 MG Tablet PO ×2 (05:17→12:50)
[2020-07-22] MEDS: Folic Acid 1 MG Tablet PO (08:10)
[2020-07-22] MEDS: Multivitamins,Ther W-Minerals Tablet 1 TABLET PO (08:10)
[2020-07-22] MEDS: Gabapentin 100 MG Capsule PO ×3 (08:11→16:58)
[2020-07-22] MEDS: Acetaminophen 500 MG Tablet 1000 MG PO (12:49)
[2020-07-22 13:18] VITALS: BP 109/71; PULSE 90; RESP 20; TEMP 36.1; O2SAT 96
[2020-07-22] MEDS: Mirtazapine 15 MG Tablet 7.5 MG PO (21:18)
[2020-07-23 00:06] VITALS: PULSE 98; RESP 12
[2020-07-23] MEDS: traMADol 50 MG Tablet PO ×3 (01:15→22:01)
[2020-07-23] MEDS: Venlafaxine XR 75 MG Capsule PO (05:09)
[2020-07-23] MEDS: NIFEdipine 90 MG Tablet PO (05:09)
[2020-07-23] MEDS: Nystatin Powder 15gm Bottle 1 APPLIC TOPICAL ×2 (05:10→22:02)
[2020-07-23] MEDS: Menthol/Lanolin/Calamine/Znox 113 GM Tube 1 APPLIC TOPICAL ×2 (05:10→17:50)
[2020-07-23] MEDS: Losartan Potassium 100 MG Tablet PO (05:10)
[2020-07-23 06:46] VITALS: BP 141/82; PULSE 104; RESP 14; TEMP 37.7; O2SAT 95
[2020-07-23] MEDS: Multivitamins,Ther W-Minerals Tablet 1 TABLET PO (08:38)
[2020-07-23] MEDS: Folic Acid 1 MG Tablet PO (08:38)
[2020-07-23] MEDS: Gabapentin 100 MG Capsule PO ×3 (08:38→17:45)
--- NOTE | 2020-07-23 09:40 | RAD_ITS ---
STUDY: X-RAY - ABDOMEN/PELVIS REASON FOR EXAM: Male, 70 years old. Appetite loss TECHNIQUE: Single AP view of the abdomen / pelvis. COMPARISON: None. FINDINGS: There is a moderate amount of colonic fecal material. The visualized liver, spleen and kidneys are grossly normal in size and morphology. Normal soft tissue structures. There are diffuse degenerative changes of the visualized lumbar spine. RAD/Abdomen Single View IMPRESSION: Moderate amount of fecal material is seen in the colon. Electronically Signed: Leno Romo MD at 14:53 EDT , Service support ,
[2020-07-23 10:00] VITALS: PULSE 97; RESP 18; O2SAT 96
--- NOTE | 2020-07-23 10:10 | NS ---
Talked to res son via phone this am about bringing food from home to res. Lg states he has talked to SUPERVISOR PLASTIC SHEETS and has been educated on potential risks of choking/aspiration w/ food not of consistency rec by SUPERVISOR PLASTIC SHEETS. Lg states he brought his dad a fruit pro shake he made at home yesterday and that his dad drank a little bit of it. Pt son appreciative of follow up phone call by this dietitian.
[2020-07-23 14:42] VITALS: BP 136/58; PULSE 57; RESP 17; TEMP 36.2; O2SAT 93
[2020-07-23] MEDS: Magnesium Citrate 300 ML PO (17:49)
[2020-07-23] MEDS: Mirtazapine 15 MG Tablet 7.5 MG PO (22:02)
[2020-07-24 04:40] VITALS: BP 108/85; PULSE 91; RESP 16; TEMP 36.3; O2SAT 95
[2020-07-24] MEDS: NIFEdipine 90 MG Tablet PO (04:44)
[2020-07-24] MEDS: Menthol/Lanolin/Calamine/Znox 113 GM Tube 1 APPLIC TOPICAL ×2 (04:44→16:44)
[2020-07-24] MEDS: Venlafaxine XR 75 MG Capsule PO (04:44)
[2020-07-24] MEDS: Nystatin Powder 15gm Bottle 1 APPLIC TOPICAL ×2 (04:44→21:55)
[2020-07-24] MEDS: Losartan Potassium 100 MG Tablet PO (04:44)
[2020-07-24] MEDS: Gabapentin 100 MG Capsule PO ×3 (08:06→16:44)
[2020-07-24] MEDS: Multivitamins,Ther W-Minerals Tablet 1 TABLET PO (08:06)
[2020-07-24] MEDS: Folic Acid 1 MG Tablet PO (08:06)
[2020-07-24] MEDS: traMADol 50 MG Tablet PO ×2 (08:06→21:58)
[2020-07-24] MEDS: Acetaminophen 500 MG Tablet 1000 MG PO (12:12)
[2020-07-24 14:03] VITALS: BP 110/75; PULSE 99; RESP 20; TEMP 36; O2SAT 96
[2020-07-24] MEDS: Mirtazapine 15 MG Tablet 7.5 MG PO (21:55)
[2020-07-25 04:51] VITALS: BP 103/83; PULSE 83; RESP 16; TEMP 36.8; O2SAT 96
[2020-07-25] MEDS: Menthol/Lanolin/Calamine/Znox 113 GM Tube 1 APPLIC TOPICAL ×2 (04:54→17:40)
[2020-07-25] MEDS: Venlafaxine XR 75 MG Capsule PO (04:54)
[2020-07-25] MEDS: Losartan Potassium 100 MG Tablet PO (04:54)
[2020-07-25] MEDS: NIFEdipine 90 MG Tablet PO (04:54)
[2020-07-25] MEDS: Nystatin Powder 15gm Bottle 1 APPLIC TOPICAL ×2 (04:54→22:07)
[2020-07-25] MEDS: Multivitamins,Ther W-Minerals Tablet 1 TABLET PO (07:43)
[2020-07-25] MEDS: Gabapentin 100 MG Capsule PO ×3 (07:43→17:38)
[2020-07-25] MEDS: Folic Acid 1 MG Tablet PO (07:44)
[2020-07-25] MEDS: traMADol 50 MG Tablet PO ×2 (07:48→22:05)
[2020-07-25 13:38] VITALS: PULSE 89; RESP 14; O2SAT 97
[2020-07-25 15:40] VITALS: BP 95/66; PULSE 89; RESP 14; TEMP 36.7; O2SAT 97
[2020-07-25] MEDS: Mirtazapine 15 MG Tablet 7.5 MG PO (22:06)
[2020-07-26 05:00] VITALS: BP 103/76; PULSE 82; RESP 18; TEMP 37.3; O2SAT 99
[2020-07-26] MEDS: Nystatin Powder 15gm Bottle 1 APPLIC TOPICAL ×2 (06:43→21:36)
[2020-07-26] MEDS: Menthol/Lanolin/Calamine/Znox 113 GM Tube 1 APPLIC TOPICAL ×2 (06:43→17:31)
[2020-07-26] MEDS: Venlafaxine XR 75 MG Capsule PO (06:44)
[2020-07-26] MEDS: Losartan Potassium 100 MG Tablet PO (06:44)
[2020-07-26] MEDS: Gabapentin 100 MG Capsule PO ×3 (08:05→17:29)
[2020-07-26] MEDS: Folic Acid 1 MG Tablet PO (08:05)
[2020-07-26] MEDS: NIFEdipine 90 MG Tablet PO (08:05)
[2020-07-26] MEDS: Multivitamins,Ther W-Minerals Tablet 1 TABLET PO (08:05)
--- NOTE | 2020-07-26 09:54 | CASEMGMT ---
Addendum entered by Elida Lester 07/26/20 10:42: Son returned call. Spoke with son about hospice services and IDT agreeable. Answered questions. Discussed DC plans - home vs SNF and financial liability. Son would like to take pt home and hire assistance. Emailed nonskilled C list again. Hospice to get any DME in the home prior to DC. Encouraged to start contacting agencies as the goal is to have pt DC'd by end of week now that hospice services are elected. Son expressed understanding and appreciative of SW assistance. Made referral to [facility]. Will continue to follow. Original Note: Social Work Received call from Spring at [facility] that son, Lg, contact hospice to inquire about services for pt. IDT agreeable pt is appropriate but would need additional assistance at home when son is working. Attempted to contact son to discuss but voicemail box is full. Will continue to attempt. YOANNA Estrada
--- NOTE | 2020-07-26 15:08 | CHAPLAIN ---
Type of Pastoral Visit ___ Initial Visit _x__ Follow-up Visit ___ On-call Visit ___ General Patient Visit ___ Spiritual Assessment ___ Family Conference ___ Bereavement ___ Rapid Response ___ Code Blue ___ Other (describe below) Pastoral Care Referral From _x__ Patient ___ Family ___ Nurse ___ Physician ___ Enterprise Application Administrator ___ Oncology Specialist ___ Other (describe below) Sacrament/Intervention ___ Active listening ___ Anointing ___ Confucianist ___ Bereavement ___ Communion ___ Lorelei exploration ___ ___ Life review _x__ Prayer ___ Reconciliation ___ Sacrament of Sick _x__ Supportive presence ___ Wedding ___ Other (describe below) Pastoral Comments
[2020-07-26 15:25] VITALS: BP 102/53; PULSE 88; RESP 19; TEMP 36.3; O2SAT 96
[2020-07-26] MEDS: Acetaminophen 500 MG Tablet 1000 MG PO (17:31)
[2020-07-26] MEDS: Mirtazapine 15 MG Tablet 7.5 MG PO (21:37)
[2020-07-27 05:27] VITALS: BP 118/79; PULSE 95; RESP 16; TEMP 36.6; O2SAT 97
[2020-07-27] MEDS: Nystatin Powder 15gm Bottle 1 APPLIC TOPICAL ×2 (05:29→20:29)
[2020-07-27] MEDS: Venlafaxine XR 75 MG Capsule PO (05:29)
[2020-07-27] MEDS: NIFEdipine 90 MG Tablet PO (05:29)
[2020-07-27] MEDS: Losartan Potassium 100 MG Tablet PO (05:29)
[2020-07-27] MEDS: Menthol/Lanolin/Calamine/Znox 113 GM Tube 1 APPLIC TOPICAL ×2 (05:29→17:37)
[2020-07-27 05:47] LABS: Absolute Lymphocyte Count 1.51 X10^3/uL (0.83-4.51); Absolute Neutrophil Count 9.5 X10^3/uL (2.0-7.7); Basophil# 0.05 X10^3/uL; Basophil% 0.4 % (0-1); Eosinophil# 0.15 X10^3/uL; Eosinophils% 1.2 % (0-5); Hematocrit 33.6 % (40-54); Hemoglobin 10.8 g/dL (13.0-16.5); Lymphocyte # 1.51 X10^3/ul (0.83-4.51); Lymphocyte % 12.4 % (19-41); Mean Corp Hgb Conc 32.1 g/dL (32-36); Mean Corpuscular Hgb 31.2 pg (27.0-32.0); Mean Corpuscular Volume 97.1 fL (80-94); Mean Platelet Vol. 10.1 fl (6.2-12.0); Monocyte# 0.93 X10^3/uL; Monocyte% 7.6 % (0-10); NRBC Flagged by Analyzer 0 % (0-5); Neutrophil # 9.48 X10^3/uL (2.7-7.7); Neutrophil % 77.8 % (47-70); Platelet Count 624 K/mm3 (150-450); RBC Distribution Width SD 45.6 fl (35.1-43.9); Red Blood Count 3.46 M/mm3 (4.6-6.2); White Blood Count 12.2 K/mm3 (4.4-11.0)
[2020-07-27 06:07] LABS: Anion Gap 5 (5-15); BUN 15 mg/dL (7-18); BUN/Creat Ratio 15.4 RATIO (10-20); Calcium,Total 9.5 mg/dL (8.5-10.1); Chloride 98 mmol/L (98-107); Creatinine, Serum 0.98 mg/dL (0.70-1.30); EST Glomerular Filtration Rate 81 mL/min (>60); Est Glom Filt Rate - Afr Amer 98 mL/min (>60); Estimated Creatinine Clearance 78.13 ml/min; Glucose 98 mg/dL (74-106); Potassium 3.8 mmol/L (3.5-5.1); Sodium Level 135 mmol/L (136-145)
[2020-07-27] MEDS: Multivitamins,Ther W-Minerals Tablet 1 TABLET PO (07:57)
[2020-07-27] MEDS: Folic Acid 1 MG Tablet PO (07:57)
[2020-07-27] MEDS: Gabapentin 100 MG Capsule PO ×3 (07:57→17:37)
[2020-07-27 09:35] VITALS: PULSE 102; RESP 18
[2020-07-27 13:40] VITALS: BP 102/64; PULSE 90; RESP 18; TEMP 36.4; O2SAT 96
[2020-07-27] MEDS: traMADol 50 MG Tablet PO (17:36)
[2020-07-27] MEDS: Mirtazapine 15 MG Tablet 7.5 MG PO (20:29)
[2020-07-28 05:00] VITALS: BP 99/70; PULSE 90; RESP 16; TEMP 36.1; O2SAT 96
[2020-07-28] MEDS: NIFEdipine 90 MG Tablet PO (05:01)
[2020-07-28] MEDS: Venlafaxine XR 75 MG Capsule PO (05:01)
[2020-07-28] MEDS: Losartan Potassium 100 MG Tablet PO (05:01)
[2020-07-28] MEDS: Acetaminophen 500 MG Tablet 1000 MG PO ×2 (05:01→16:12)
[2020-07-28] MEDS: Menthol/Lanolin/Calamine/Znox 113 GM Tube 1 APPLIC TOPICAL ×2 (05:02→16:07)
[2020-07-28] MEDS: Nystatin Powder 15gm Bottle 1 APPLIC TOPICAL ×2 (05:03→20:58)
[2020-07-28] MEDS: Multivitamins,Ther W-Minerals Tablet 1 TABLET PO (07:57)
[2020-07-28] MEDS: Gabapentin 100 MG Capsule PO ×3 (07:57→16:07)
[2020-07-28] MEDS: Folic Acid 1 MG Tablet PO (07:57)
[2020-07-28 10:00] VITALS: PULSE 69; RESP 18
[2020-07-28 13:20] VITALS: BP 108/74; PULSE 94; RESP 18; TEMP 36.6; O2SAT 97
[2020-07-28] MEDS: traMADol 50 MG Tablet PO (13:37)
--- NOTE | 2020-07-28 19:16 | PN.TCU_ITS ---
Subjective Subjective Resident seen for regulatory visit. He has no complaints, but is confused. His oral intake is adequate, despite appetite stimulant, still not eating enough. His sons are in agreement with hospice services for end of life care. Resident will need additional services to discharge home with hospice because both sons work. Unfortunately, resident's recently as well. Objective Data Objective Data Vital Signs: Vital Signs Temp Pulse Resp BP Pulse Ox 97.9 F 94 18 108/74 97 07/28/20 13:20 07/28/20 13:20 07/28/20 13:20 07/28/20 13:20 07/28/20 13:20 Oxygen Delivery Method Room Air Weight: 85.332 kg Body Mass Index (BMI) 30.2 Intake & Output: Intake and Output for Last 24 Hours 07/26/20 07/27/20 07/28/20 23:59 23:59 23:59 Intake Total 140 / 140 600 / 600 240 / 240 Balance 140 / 140 600 / 600 240 / 240 Lab / Micro Data Result Diagrams: 07/27/20 05:16 07/27/20 05:16 Micro: Microbiology 07/06/20 11:50 Urine, Catheterized Urine Culture - Final Culture exhibits no growth. Physical Exam Const alert and oriented x3 General Appearance: cooperative HEENT normocephalic Eyes PERRL and EOMs intact bilaterally Neck supple, no JVD and no carotid bruits Resp normal respiratory effort, normal air movement and clear to auscultation bilaterally Cardio regular rate and regular rhythm GI normal to inspection, nondistended, normoactive bowel sounds, non-tender and non-distended Extremity normal capillary refill General Extremity: Negative for edema Skin no rashes or lesions noted General Skin Exam: no breakdown Psych affect normal Appearance: appropriate Assessment & Plan Assessment/Plan (1) Debility: (2) Encephalopathy: (3) Urinary tract infection: QUALIFIERS: Urinary tract infection type: site unspecified Hematuria presence: with hematuria Qualified Code(s): N39.0 - Urinary tract infection, site not specified; R31.9 - Hematuria, unspecified (4) Bacteremia due to Escherichia coli: (5) Alcohol withdrawal: QUALIFIERS: Complication of substance-induced condition: with delirium Qualified Code(s): F10.231 - Alcohol dependence with withdrawal delirium (6) Hypokalemia: (7) Hypertension: QUALIFIERS: Hypertension type: essential hypertension Qualified Code(s): I10 - Essential (primary) hypertension (8) Rhabdomyolysis: (9) Alcohol abuse: PLAN: 70 year old male with below past medical history hospitalized for encephalopathy secondary to E. Coli urinary tract infection/bacteremia, complicated by alcohol withdrawal, hypokalemia, rhabdomyolysis, admitted to TCU with debility, here for rehabilitation, strengthening, prior to discharge home with son. * Debility - PT/OT. * Pain - Tylenol 1000MG Q6H PRN pain (1-5), Tramadol 50MG Q6H PRN pain (6-10), Blue Gel topical 4x/day PRN. * Bowel - Monitor. * Adult immunization - Administer Prevnar 13, Pneumovax 23, Fluzone, COVID19 vaccine as appropriate. * DVT prophylaxis - Hold, progressive anemia. * Nutrition - Ensure Enlive 120ML 4x/day. * Hypertension - Losartan 100MG daily, Nifedipine 90MG daily. * Depression - Venlafaxine 75MG daily, stable chronic ocean transportation intermediary use, GDR not recommended. * Alcohol withdrawal - Folic Acid 1MG daily, MVI daily. * Neuropathic pain - Gabapentin 100MG TIDCM. * Skin irritation - Calmoseptine topical BID. * Appetite loss - Mirtazapine 7.5MG QHS. * Tinea Corporis - Nystatin powder topical BID. Capacity Capacity Assessment Tool Can the patient make a choice & communicate that choice?: No Can the patient understand benefits, risks and alternatives?: No Can the patient make a logical, rational choice?: No Is the choice the patient makes consistent w/ their values?: No Is there an impending, emergent risk to the patient?: Yes Does the patient have an Advance Directive?: No Is there a Surrogate Available?: Yes i.e. HCPOA: Yes i.e. close relative (spouse, child, parent, sibling)?: Yes
[2020-07-28] MEDS: Mirtazapine 15 MG Tablet 7.5 MG PO (20:57)
[2020-07-29] MEDS: traMADol 50 MG Tablet PO ×2 (01:16→12:47)
[2020-07-29 05:20] VITALS: BP 108/73; PULSE 86; RESP 18; TEMP 36.2; O2SAT 95
[2020-07-29] MEDS: Acetaminophen 500 MG Tablet 1000 MG PO (05:21)
[2020-07-29] MEDS: NIFEdipine 90 MG Tablet PO (05:22)
[2020-07-29] MEDS: Venlafaxine XR 75 MG Capsule PO (05:22)
[2020-07-29] MEDS: Losartan Potassium 100 MG Tablet PO (05:22)
[2020-07-29] MEDS: Menthol/Lanolin/Calamine/Znox 113 GM Tube 1 APPLIC TOPICAL ×2 (05:23→18:23)
[2020-07-29] MEDS: Nystatin Powder 15gm Bottle 1 APPLIC TOPICAL ×2 (05:23→23:18)
[2020-07-29] MEDS: Gabapentin 100 MG Capsule PO ×3 (07:53→18:22)
[2020-07-29] MEDS: Multivitamins,Ther W-Minerals Tablet 1 TABLET PO (07:54)
[2020-07-29] MEDS: Folic Acid 1 MG Tablet PO (07:54)
--- NOTE | 2020-07-29 13:07 | CASEMGMT ---
Social Work Contacted son to discuss DC date - voicemail full. Will continue to attempt. Elida Lester, [employer]
[2020-07-29 13:28] VITALS: BP 107/72; PULSE 62; RESP 18; TEMP 36.3
[2020-07-29] MEDS: Mirtazapine 15 MG Tablet 7.5 MG PO (23:19)
[2020-07-30 02:19] VITALS: PULSE 100; RESP 14
[2020-07-30] MEDS: Menthol/Lanolin/Calamine/Znox 113 GM Tube 1 APPLIC TOPICAL ×2 (05:12→17:00)
[2020-07-30] MEDS: Losartan Potassium 100 MG Tablet PO (05:13)
[2020-07-30] MEDS: Venlafaxine XR 75 MG Capsule PO (05:13)
[2020-07-30] MEDS: Nystatin Powder 15gm Bottle 1 APPLIC TOPICAL ×2 (05:13→20:50)
[2020-07-30] MEDS: NIFEdipine 90 MG Tablet PO (05:14)
[2020-07-30 07:04] VITALS: BP 104/71; PULSE 85; RESP 12; TEMP 37.6
[2020-07-30] MEDS: Multivitamins,Ther W-Minerals Tablet 1 TABLET PO (09:45)
[2020-07-30] MEDS: Gabapentin 100 MG Capsule PO ×3 (09:45→17:00)
[2020-07-30] MEDS: Folic Acid 1 MG Tablet PO (09:45)
[2020-07-30] MEDS: traMADol 50 MG Tablet PO (11:18)
[2020-07-30 13:43] VITALS: BP 96/59; PULSE 95; RESP 16; TEMP 36.2; O2SAT 97
[2020-07-30 14:45] VITALS: BP 102/64; PULSE 93
--- NOTE | 2020-07-30 15:07 | CASEMGMT ---
Addendum entered by Jacqueline Espino 07/30/20 15:18: ANDREA placed call to [facility] and spoke with Rubens in Admissions. Rubens confirms that she met with pt son on and the tenative plan is for pt to admit to the [facility] on Thursday 08/03 for an emergency respite stay. This would allow time for pt son to arrange for home caregivers. SW to touch base with [facility] on Sunday to confirm plan. ANDREA met with pt and discussed d/c plan and he is agreeable. IDT team and physician updated. Plan: D/C 08/03/20 to Hospice Inpatient Unit for respite stay. ASIF Fernandez Original Note: Social Work SW attempted to call pt son Saul multiple times today to discuss discharge plan. No answer, VM is full, unable to leave a message requesting return call. Nursing updated and requested if pt son calls or come in to ask to call SW on Sunday. ASIF Fernandez
--- NOTE | 2020-07-30 15:54 | DS.PCM_ITS ---
Providers Date of Admission: 06/28/20 Primary Care Physician: WOLFGANG MALIN Reason For Visit: UTI ETOH W/DRAWAL Diagnosis Discharge Diagnosis (1) Debility: Status: Acute Code(s): R53.81 - Other malaise (2) Encephalopathy: Status: Acute Code(s): G93.40 - Encephalopathy, unspecified (3) Urinary tract infection: Status: Acute Code(s): N39.0 - Urinary tract infection, site not specified Qualifiers: Urinary tract infection type: site unspecified Hematuria presence: with hematuria Qualified Code(s): N39.0 - Urinary tract infection, site not specified; R31.9 - Hematuria, unspecified (4) Bacteremia due to Escherichia coli: Status: Acute Code(s): R78.81 - Bacteremia; B96.20 - Unspecified Escherichia coli [E. coli] as the cause of diseases classified elsewhere (5) Alcohol withdrawal: Status: Acute Code(s): F10.239 - Alcohol dependence with withdrawal, unspecified Qualifiers: Complication of substance-induced condition: with delirium Qualified Code(s): F10.231 - Alcohol dependence with withdrawal delirium (6) Hypokalemia: Status: Acute Code(s): E87.6 - Hypokalemia (7) Hypertension: Status: Chronic Code(s): I10 - Essential (primary) hypertension Qualifiers: Hypertension type: essential hypertension Qualified Code(s): I10 - Essential (primary) hypertension (8) Rhabdomyolysis: Status: Acute Code(s): M62.82 - Rhabdomyolysis (9) Alcohol abuse: Status: Acute Code(s): F10.10 - Alcohol abuse, uncomplicated Medications at Discharge Home Medications acetaminophen 1,000 mg PO Q6H PRN PRN #0 tab 07/30/20 gabapentin 100 mg PO TIDCM #0 cap 07/30/20 losartan 100 mg PO DAILY #0 tab 07/30/20 menthol [Blue Gel] 1 applic TOPICAL 4X/DAY PRN PRN #0 g 07/30/20 menthol-zinc oxide [Calmoseptine] 1 applic TOPICAL BID #0 g 07/30/20 mirtazapine 7.5 mg PO QHS #0 tab 07/30/20 nifedipine 90 mg PO DAILY #0 tab 07/30/20 venlafaxine 75 mg PO DAILY #0 cap 07/30/20 Hospital Course Operations None Procedures None Summary of Care Provided Minutes Spent on Discharge: 35 Hospital Course: 70 year old male with below past medical history hospitalized for encephalopathy secondary to E. Coli urinary tract infection/bacteremia, complicated by alcohol withdrawal, hypokalemia, rhabdomyolysis, admitted to TCU with debility, here for rehabilitation, strengthening, prior to discharge home with son. On TCU, reversible causes of declined rule out. Resident not eating, progressively weak, dying. Discharge to [facility] Unit 08/03/2020 for emergency respite stay. Physical Exam Const alert and oriented x3 General Appearance: cooperative HEENT normocephalic Eyes PERRL and EOMs intact bilaterally Neck supple, no JVD and no carotid bruits Resp normal respiratory effort, normal air movement and clear to auscultation bilaterally Cardio regular rate and regular rhythm GI normal to inspection, nondistended, normoactive bowel sounds, non-tender and non-distended Extremity normal capillary refill General Extremity: Negative for edema Skin no rashes or lesions noted General Skin Exam: no breakdown Psych affect normal Appearance: appropriate Weight / BMI Weight Weight: 85.332 kg Body Mass Index (BMI) 30.2 ABG / Lab / Microbiology Data Result Diagrams: 07/27/20 05:16 07/27/20 05:16 Microbiology: Microbiology 07/06/20 11:50 Urine, Catheterized Urine Culture - Final Culture exhibits no growth. D/C Instructions Discharge Diet: No restrictions Weight Bearing Status: Weight bearing as tolerated Call your doctor if you observe: Fever of 101 or Higher, Inability to urinate, Inability to have a bowel movement, Shortness of breath, Fainting spells, Chest pain and Uncontrolled pain Additional Instructions: Discharge to [facility] 08/03/2020 for emergency respite stay. Please Follow Up With: Wolfgang Malin When: As needed. Meaningful Use Info Meaningful Use Diagnoses (Choose all that apply): None applicable Discharge Plan Admission Admit Date/Time: 06/28/20 17:55 Primary Reason for Your Visit: Debility Attending Provider: Cornel Finley Chi Instructions Additional Instructions / Restrictions: Discharge to [facility] Unit 08/03/2020 for emergency respite stay. Discharge Orders/Prescriptions Prescriptions: New venlafaxine 75 mg Capsule,Extended Release 24hr 75 mg PO DAILY Qty: 0 RF: 0 nifedipine 90 mg Tablet Extended Release 90 mg PO DAILY Qty: 0 RF: 0 acetaminophen 500 mg Tablet 1,000 mg PO Q6H PRN PRN (Reason: Pain Score 1-5) Qty: 0 RF: 0 mirtazapine 15 mg Tablet 7.5 mg PO QHS Qty: 0 RF: 0 gabapentin 100 mg Capsule 100 mg PO TIDCM Qty: 0 RF: 0 losartan 100 mg Tablet 100 mg PO DAILY Qty: 0 RF: 0 menthol [Blue Gel] 2 % Gel 1 applic topical 4X/DAY PRN PRN (Reason: Pain Score 1-10) Qty: 0 RF: 0 Calmoseptine 0.44-20.6 % Ointment 1 applic topical BID Qty: 0 RF: 0 Discontinued losartan 50 mg Tablet 100 mg PO DAILY RF: 0 venlafaxine 75 mg Capsule,Extended Release 24hr 75 mg PO DAILY RF: 0 lorazepam 0.5 mg Tablet 0.5 mg PO Q6H PRN (Reason: Anxiety) RF: 0 nifedipine 90 mg Tablet Extended Release 24hr 90 mg PO DAILY RF: 0 aspirin 81 mg Tablet 81 mg PO DAILY RF: 0 folic acid 1 mg PO/SL DAILY RF: 0 acetaminophen [Tylenol] 325 mg Tablet 650 mg PO Q6H PRN PRN (Reason: Headache/Fever (T>100f)) Qty: 0 RF: 0 amoxicillin 500 mg capsule 500 mg PO Q8H RF: 0 Referrals / Follow Up: WOLFGANG MALIN [Other] Disposition Disposition (needs filled in before D/C Order can be placed): Hospice in Medical Facility
[2020-07-30] MEDS: Mirtazapine 15 MG Tablet 7.5 MG PO (20:50)
[2020-07-31 05:00] VITALS: BP 113/75; PULSE 87; RESP 16; TEMP 37.1; O2SAT 94
[2020-07-31] MEDS: Menthol/Lanolin/Calamine/Znox 113 GM Tube 1 APPLIC TOPICAL ×2 (05:43→16:51)
[2020-07-31] MEDS: Losartan Potassium 100 MG Tablet PO (05:43)
[2020-07-31] MEDS: NIFEdipine 90 MG Tablet PO (05:43)
[2020-07-31] MEDS: Nystatin Powder 15gm Bottle 1 APPLIC TOPICAL ×2 (05:43→20:09)
[2020-07-31] MEDS: Venlafaxine XR 75 MG Capsule PO (05:43)
[2020-07-31] MEDS: Folic Acid 1 MG Tablet PO (08:47)
[2020-07-31] MEDS: Multivitamins,Ther W-Minerals Tablet 1 TABLET PO (08:47)
[2020-07-31] MEDS: Gabapentin 100 MG Capsule PO ×3 (08:47→16:51)
[2020-07-31 12:58] VITALS: PULSE 101; RESP 16
[2020-07-31 15:08] VITALS: BP 112/75; PULSE 101; RESP 16; TEMP 36.8; O2SAT 96
[2020-07-31] MEDS: Mirtazapine 15 MG Tablet 7.5 MG PO (20:08)
[2020-08-01] MEDS: Menthol/Lanolin/Calamine/Znox 113 GM Tube 1 APPLIC TOPICAL ×2 (04:57→17:31)
[2020-08-01] MEDS: Venlafaxine XR 75 MG Capsule PO (04:58)
[2020-08-01] MEDS: Nystatin Powder 15gm Bottle 1 APPLIC TOPICAL ×2 (04:58→21:33)
[2020-08-01] MEDS: Losartan Potassium 100 MG Tablet PO (04:58)
[2020-08-01] MEDS: NIFEdipine 90 MG Tablet PO (04:59)
[2020-08-01 06:24] VITALS: BP 114/81; PULSE 88; RESP 14; TEMP 37.3
[2020-08-01] MEDS: Gabapentin 100 MG Capsule PO ×3 (08:51→17:32)
[2020-08-01] MEDS: Multivitamins,Ther W-Minerals Tablet 1 TABLET PO (08:52)
[2020-08-01] MEDS: Folic Acid 1 MG Tablet PO (08:52)
[2020-08-01 15:23] VITALS: BP 127/71; PULSE 99; RESP 16; TEMP 37; O2SAT 96
[2020-08-01] MEDS: Mirtazapine 15 MG Tablet 7.5 MG PO (21:33)
[2020-08-02 01:04] VITALS: PULSE 98; RESP 14
--- NOTE | 2020-08-02 03:10 | NURSING ---
No change in condition noted.
[2020-08-02] MEDS: Menthol/Lanolin/Calamine/Znox 113 GM Tube 1 APPLIC TOPICAL ×2 (05:38→14:51)
[2020-08-02] MEDS: Losartan Potassium 100 MG Tablet PO (05:38)
[2020-08-02] MEDS: NIFEdipine 90 MG Tablet PO (05:39)
[2020-08-02] MEDS: Nystatin Powder 15gm Bottle 1 APPLIC TOPICAL ×2 (05:39→22:19)
[2020-08-02] MEDS: Venlafaxine XR 75 MG Capsule PO (05:39)
[2020-08-02 05:55] LABS: Absolute Lymphocyte Count 1.88 X10^3/uL (0.83-4.51); Absolute Neutrophil Count 7.2 X10^3/uL (2.0-7.7); Basophil# 0.04 X10^3/uL; Basophil% 0.4 % (0-1); Eosinophil# 0.14 X10^3/uL; Eosinophils% 1.4 % (0-5); Hematocrit 31.1 % (40-54); Hemoglobin 10.1 g/dL (13.0-16.5); Lymphocyte # 1.88 X10^3/ul (0.83-4.51); Lymphocyte % 18.6 % (19-41); Mean Corp Hgb Conc 32.5 g/dL (32-36); Mean Corpuscular Volume 95.4 fL (80-94); Mean Platelet Vol. 9.7 fl (6.2-12.0); Monocyte# 0.84 X10^3/uL; Monocyte% 8.3 % (0-10); NRBC Flagged by Analyzer 0 % (0-5); Neutrophil # 7.15 X10^3/uL (2.7-7.7); Neutrophil % 70.8 % (47-70); Platelet Count 568 K/mm3 (150-450); RBC Distribution Width CV 13.2 % (11.6-14.6); RBC Distribution Width SD 46.5 fl (35.1-43.9); Red Blood Count 3.26 M/mm3 (4.6-6.2); White Blood Count 10.1 K/mm3 (4.4-11.0)
[2020-08-02 06:43] LABS: Anion Gap 7 (5-15); BUN 13 mg/dL (7-18); BUN/Creat Ratio 14.1 RATIO (10-20); Calcium,Total 9.2 mg/dL (8.5-10.1); Chloride 101 mmol/L (98-107); Creatinine, Serum 0.92 mg/dL (0.70-1.30); EST Glomerular Filtration Rate 86 mL/min (>60); Est Glom Filt Rate - Afr Amer 104 mL/min (>60); Estimated Creatinine Clearance 83.23 ml/min; Glucose 100 mg/dL (74-106); Potassium 3.8 mmol/L (3.5-5.1); Sodium Level 136 mmol/L (136-145)
[2020-08-02 07:08] VITALS: BP 110/72; PULSE 98; RESP 14; TEMP 36.8
--- NOTE | 2020-08-02 08:29 | CASEMGMT ---
Social Work Voicemail received from patient son, Saul. Saul confirms plan for discharge on 08/03/2020. This forensic social worker returning phone call to inquire about transportation time/preference. No answer. Voicemail left. Will continue to follow. Marilee LENZ, TALITAS
[2020-08-02] MEDS: Acetaminophen 500 MG Tablet 1000 MG PO (08:41)
[2020-08-02] MEDS: Multivitamins,Ther W-Minerals Tablet 1 TABLET PO (08:42)
[2020-08-02] MEDS: Gabapentin 100 MG Capsule PO ×3 (08:42→17:37)
[2020-08-02] MEDS: Folic Acid 1 MG Tablet PO (08:42)
--- NOTE | 2020-08-02 12:27 | CASEMGMT ---
[facility] Manoj confirms that plan is for patient to admit to [facility] unit under respite care. Telephone call to patient son, Saul. Saul confirms above plan. Telephone call to [facility], transportation set up for 08/03/2020 @ 11:00am. Transportation form completed and placed with patient discharge information. Met with patient in room. Patient agreeable to all above discharge planning. Support provided. Proposed discharge date: 08/03/2020. Disposition: [facility], inpatient. Marilee LENZ, STACY
[2020-08-02] MEDS: traMADol 50 MG Tablet PO (13:01)
--- NOTE | 2020-08-02 14:06 | CASEMGMT ---
Social Work Brief interview for mental status (BIMS) and resident mood assessment (PHQ-9) completed on this day. BIMS score 07/03. PHQ-9 score . Marilee LENZ, TALITAS
[2020-08-02 14:49] VITALS: BP 88/60; PULSE 94; RESP 18; TEMP 36.3; O2SAT 97
[2020-08-02] MEDS: Mirtazapine 15 MG Tablet 7.5 MG PO (22:21)
[2020-08-03 05:06] VITALS: BP 110/77; PULSE 92; RESP 18; TEMP 36.8; O2SAT 95
[2020-08-03] MEDS: Venlafaxine XR 75 MG Capsule PO (05:08)
[2020-08-03] MEDS: Losartan Potassium 100 MG Tablet PO (05:08)
[2020-08-03] MEDS: Menthol/Lanolin/Calamine/Znox 113 GM Tube 1 APPLIC TOPICAL (05:08)
[2020-08-03] MEDS: Nystatin Powder 15gm Bottle 1 APPLIC TOPICAL (05:08)
[2020-08-03] MEDS: NIFEdipine 90 MG Tablet PO (05:08)
[2020-08-03] MEDS: Multivitamins,Ther W-Minerals Tablet 1 TABLET PO (09:26)
[2020-08-03] MEDS: Gabapentin 100 MG Capsule PO ×2 (09:26→10:29)
[2020-08-03] MEDS: Folic Acid 1 MG Tablet PO (09:26)
--- NOTE | 2020-08-03 09:48 | NURSING ---
[facility]
[2020-08-03 10:00] VITALS: BP 95/62; PULSE 85; RESP 16; TEMP 37.1; O2SAT 98
[2020-08-03] MEDS: traMADol 50 MG Tablet PO (10:28)
[2020-08-03 10:37] VITALS: RESP 16
== END 2020-08-03 11:40 | disposition hospice, inpatient (51) | DRG 690 ==
PROVIDERS: Admitting Provider Family Medicine Geriatric Medicine; Visit Provider Family Medicine Geriatric Medicine
DX: N39.0 Urinary tract infection, site not specified (principal); F10.27 Alcohol dependence with alcohol-induced persisting dementia; M62.82 Rhabdomyolysis; B96.20 Unspecified Escherichia coli [E. coli] as the cause of diseases classified elsewhere; Z91.81 History of falling; I10 Essential (primary) hypertension; F32.9 Major depressive disorder, single episode, unspecified; D50.9 Iron deficiency anemia, unspecified; Z79.899 Other long term (current) drug therapy; Z79.82 Long term (current) use of aspirin; Z87.891 Personal history of nicotine dependence; G31.2 Degeneration of nervous system due to alcohol; B35.4 Tinea corporis
CPT/HCPCS: 36415; 71046; 72110; 74018; 74230; 80048; 80053; 81001; 82140; 82607; 84425; 84443; 85025; 87086; 87635; 92507; 92523; 92526; 92610; 92611; 97032; 97110; 97116; 97162; 97166; 97530; 97535; A4216; J0696; U0002

== ENCOUNTER → 2020-07-09 17:36 | Outpatient (CLI) | payer MEDICARE, SELFPAY ==
[2020-06-28 18:10] VITALS: BMI 30.2
--- NOTE | 2020-07-09 17:39 | CT_ITS ---
STUDY: CT BRAIN WITHOUT CONTRAST REASON FOR EXAM: Male, 70 years old. ACUTE ENCEPHALOPATHY RADIATION DOSAGE (If Supplied By Facility): CTDIvol = ( 44.99 ) mGy, DLP = ( 796.11 ) mGycm TECHNIQUE: Transaxial CT imaging of the brain was performed without administration of intravenous contrast material. Individualized dose optimization techniques were used for this CT. COMPARISON: Prior head CT exam of 06/23/2020 FINDINGS: Normal soft tissue structures. Normal calvarium. There is mild cerebral atrophy with widening of the extra-axial spaces and ventricular dilatation. There are areas of decreased attenuation within the white matter tracts of the supratentorial brain, consistent with microvascular disease changes. Normal basal ganglia and thalami. Normal brainstem. Normal cerebellum. There is no intracranial hemorrhage. There are no findings of an acute ischemic infarction. Normal visualized paranasal sinuses. CT/Brain/Head without Contrast IMPRESSION: No acute intracranial findings. Negative for hemorrhage, hematoma or extra-axial fluid collection. Negative for demarcation of a new nonhemorrhagic infarct zone. Stable involutional changes. Electronically Signed: Tari Webb MD at 18:51 EDT , Service support ,
== END ==
LOC: CT 17:37
PROVIDERS: Visit Provider Family Medicine Geriatric Medicine
DX: G93.40 Encephalopathy, unspecified (principal)
CPT/HCPCS: 70450